=== PATIENT | female | born 1975 | race Caucasian/White ===

== ENCOUNTER 2017-03-22 11:40 | Emergency (ER) | payer MEDICAID ==
[~2017-03-22] VITALS: Ht 165.1 cm; Wt 70.3 kg
[~2017-03-22 11:40] MED LIST: AMOXICILLIN500 MG PO; ATHLETE'S FOOT15 GM TP; BACLOFEN20 MG PO; BACTRIM DS 8001 TAB PO; BLEPH-10 OPT5 ML/BOT OP; CIPRO 500MG TA500 MG PO; CLEOCIN HCL300 MG PO; CLINDAMYCIN HC300 MG PO; DARVOCET-N 1001 EACH PO; ERY-TAB 250MG250 MG OR; ERY-TAB250 MG PO; ERY-TAB333 MG PO; ERYTHROMYCIN 2250 MG PO; ERYTHROMYCIN250 MG PO; ESCITALOPRAM20 MG NG; FIORICET1 CAP PO; FLAGYL 500MG.500 MG PO; FLEXERIL10 MG PO; GABAPENTIN 600600 MG PO; GABAPENTIN300 MG PO; GABAPENTIN800 MG PO; HYDROCODONE1 TABLET PO; IBU-8800 MG PO; IBUPROFEN 600M600 MG PO; IBUPROFEN800 MG PO; INDERAL 40MG. T40 MG PO; INDERAL40 MG PO; KEFLEX 500MG.500 MG PO; LISINOPRIL 10MG10 MG PO; LISINOPRIL/HCTZ1 TA3 PO; LORTAB 5/500 501 TAB PO; MEDROL 4MG. DOSE4 MG PO; MOBIC7.5 MG PO; MOTRIN 400MG.400 MG PO; MOTRIN 600MG.600 MG PO; NAPROSYN 500MG500 MG PO; NAPROXEN SODIU500 MG PO; NEURONTIN 300M300 MG PO; NICOTINE PATCH;21 MG TD; NOMEDS XX; NORFLEX100 MG PO; PHENERGAN 25MG.25 M1 PO; PREDNISONE 20MG20 MG PO; PREMARIN 0.9MG0.9 MG PO; PREMARIN0.9 MG PO; PROPRANOLOL HCL40 MG PO; PYRIDIUM 200MG200 MG PO; PYRIDIUM200 M1 PO; QUETIAPINE FUM100 MG PO; SKELAXIN 800MG800 MG PO; SULFAMETHOXAZOL1 TA6 PO; TOBREX OPTH SOLU5 ML OP; TRAMADOL 50MG T50 M1 PO; TRAMADOL 50MG T50 MG PO; Tramadol HCl50 MG PO; ULTRACET 325 MG1 TAB PO; ULTRAM 50 MG TA50 MG PO; ULTRAM ER100 MG PO; VICODIN 5/500 T1 TAB PO; VOLTAREN75 MG PO; WELLBUTRIN 150150 MG PO; XANAX 1MG TABLET1 MG PO; ZITHROMAX Z PA250 MG PO; ZOFRAN ODT4 MG PO; [UNRECOGNIZED DRUG - OTHER] PO
[2017-03-22] MEDS ORDERED: SUBOXONE 8 MG-21 FIL SL (11:56)
[2017-03-22] MEDS ORDERED: MICONAZOLE45 GM/TUB1 TP (12:11)
--- NOTE | 2017-03-22 12:16 | [facility]gent Treatment [facility] Report ---
History of Present Issue Date/Time Seen by Provider 03/22/17 1157 Visit Reason Pt arrived:Walked Presenting Problem:LT FOOT HAS RED AREAS X 2 WEEKS. USED BLEACH AND ANTI-FUNAL CREAM Location if Accident: Onset of symptoms date/time:/ or onset unknown for:MEDICAL HX UNKNOWN Have you (or family members/close friends) recently traveled outside the [place]? N If Yes, where/when: Have you had exposure to infectious disease within the past month? TB? Other? Specify: Patient states that she has been diagnosed with athletes feet before States that over the last 2 weeks she noticed that her feet was itching more and she was getting the blister like area that ususally come when she has a flare up and states that she noticed them between her toes State that she washed her feet in bleach and used over ther counter Fungal cream but it didn't help so she came in today to be seen ALLERGIES Coded Allergies: Penicillins (10/04/15) Home Medications Reported Medications Escitalopram Oxalate 20 MG NG DAILY #30 BUPRENORPHINE HCL/NALOXONE HCL (Suboxone 8 MG-2 MG Sl Film) 1 SL BID History Medical History General CAD? No Angina: No CO: No Hypertension? Yes Hyperlipidemia? No CHF? No DVT? No PE? No COPD? No Asthma? No Anemia? No GERD? No Gastric ulcers? No GI Bleed? No Hernia? No Thyroid Problems? No Hypothyroidism? No CVA? No Seizures? No Diabetes? No Insulin Dependent: No Insulin Pump: No Home FSBS? No Renal Insuffiency? No UTI? Yes Stones? Yes BPH? No GB Disease: Yes Nephritic Syndrome? No Asplenia? No Hepatitis? No Sickle Cell Disease? No Arthritis? No Migraines? Yes Cataracts? No Glaucoma? No MRSA? No HIV? No TB? No Anxiety? Yes Depression? No Cancer? No Site: N/A More? No Immunization HX DT/Tetanus 1-4 YRS Flu REFUSES Pneumonia REFUSES Surgical Hx Previous Surgery?Y Hysterect [place] Appendix ORAL EXTRACTION RIGHT CARPAL TUNNEL RT OVARY/LEFT OVARY TUBE LEFT CARPAL TUNNEL Family History Family HX Diabetes Yes CAD Yes Hypertension Yes Hyperlipidemia Yes Cancer Yes TB No Social History Smoking Hx Packs/day < 1 Pack Alcohol Alcohol: No Review of Systems All Other Systems Reviewed and Negative Comment blister like itchy areas on left foot Physical Exam Vital Signs Vital Signs Date Time Temp Pulse Resp B/P Pulse O2 O2 Flow FiO2 Ox Delivery Rate 03/22 1151 97.9 91 20 139/97 100 General Appearance normal appearance, WD/WN, no apparent distress Respiratory Status Yes: trachea midline, chest symmetrical, non tender chest. No: respiratory distress. 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 No Departure Departure Time of Disposition 1205 Disposition DC Home or Self Care(routine) Clinical Impression Primary Impression: Tinea pedis of left foot Condition STABLE Referrals Fred LAWSON,[facility] Leger (Family): 3 Days-Call Office Patient Instructions DI for Athlete's Foot Additional Instructions Clean foot well with and dry throughly prior to application of medication cream Do not share shoes Do not go barefoot and clean showers at home well Follow up with family doctor if needed Return if needed You could be on this medication for 2 to 4 weeks and should see improvement after 2 weeks if not follow up with family doctor for further treatement Discharge Counseling Counseled pt/family regarding diagnosis, test results, medications/RX, home care, follow up needs Prescriptions Current Visit Scripts Miconazole Nitrate (Miconazole 2% Cream 45GM) 1 EMMIE TP BID #1 TUBE Ref 1 at 1214
[2017-03-22 12:21] VITALS: BP 139/97
--- OUTSIDE RECORDS SUMMARY | 2017-03-22 21:48 | External Medical Summary Rpt ---
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 BL OF ET CY NT HI AN A ER 24 09 09 0 30 10 EA 24 WE Ac Y- 33 -1 -[address] 06 HR ti TA 80 3- 3- 00 SI 40 MA ve B 12 20 20 DE N EC 41 11 11 II 3 PH I 33 AR WI 3 MA LL MG CY IA M TA OF E BL ET CY NT HI AN A AZ 00 09 09 0 6. 5 EA 24 LE Ac IT 09 -0 -[address] 02 WI ti HR 37 9- 9- 0 SI 74 S ve OM 14 20 20 DE JR YC 61 11 11 IN 8 PH DW AR IG 25 MA HT 0 CY E MG OF TA BL CY ET NT HI AN A OR 16 08 08 0 60 30 EA 23 LE Ac OP 71 -3 -[address] 89 WI ti RA 40 1- 1- 00 SI 98 S ve NO 02 20 20 DE JR LO 50 11 11 L [address] 80 AR IG MA HT MG CY E TA OF BL ET CY NT HI AN A 00 03 08 3 9. 30 EA 21 LE Ac 17 -2 -[address] 78 WI ti 30 1- 0- 0 SI 16 S ve 75 20 20 DE JR 00 11 11 0 [address] AR IG MA HT CY E OF CY NT HI AN A TR 65 08 08 0 12 6 EA 23 SO Ac AM 16 -3 -[address] 89 KA ti AD 20 0- 0- 00 SI 08 N ve OL 62 20 20 DE BA 71 11 11 BA HC 1 PH TU L AR ND 50 MA E CY O MG OF TA BL CY ET NT HI AN A LI 00 08 08 5 30 30 CL 24 LE Ac SI 37 -3 -3 .0 IN 47 WI ti NO 82 0- 0- 00 IC 33 S ve OR 07 20 20 JR IL 30 11 11 PH 5 1 AR DW MA IG MG CY HT E TA LL BL C ET OR 00 02 08 4 60 30 EA 21 REYES Ac EM 04 -2 -[address] 41 RP ti AR 61 5- 1- 00 SI 04 EL ve IN 10 20 20 DE 38 11 11 GE 0. 1 PH RA 9 AR LD MG MA R CY TA BL OF ET CY NT HI AN A GA 16 03 08 5 12 30 EA 21 LE Ac BA 71 -0 -[address] 58 WI ti PE 40 7- 1- 00 SI 95 S ve NT 66 20 20 0 DE JR IN 20 11 [address] 30 AR IG 0 MA HT MG CY E CA OF PS UL CY E NT HI AN A CL 59 07 07 0 60 8 CL 24 WE Ac IN 76 -1 -1 .0 IN 23 HR ti DA 23 9- 9- 00 IC 29 MA ve MY 32 20 20 N CI 80 11 11 PH II N 1 AR I HC MA WI L CY LL 15 IA 0 LL M MG C E CA PS UL E TR 65 07 07 0 5. 2 CL 24 WE Ac AM 16 -1 -1 00 IN 23 HR ti AD 20 9- 9- 0 IC 30 MA ve OL 62 20 20 N 71 11 11 PH II HC 1 AR I L MA WI 50 CY LL IA MG LL M C E TA BL ET TR 00 07 07 15 4 RI 89 GR Ac AM 09 -1 -1 .0 TE 06 AY ti AD 30 1- 1- 00 28 ve OL 05 20 20 AI RO 80 11 11 D BE HC 1 PH RT L AR B 50 MA CY MG 03 TA 93 BL 8 ET # 03 93 00 07 07 40 10 RI 44 HU Ac 07 -0 -0 .0 TE 82 BE ti 46 6- 6- 00 39 R ve 32 20 20 AI JU 61 11 11 D LI 3 PH A AR M MA CY 03 91 4 # 03 91 CE 00 06 06 0 40 10 CL 24 LE Ac PH 09 -2 -2 .0 IN 11 WI ti AL 33 8- 8- 00 IC 40 S ve EX 14 20 20 JR IN 70 11 11 [address] 50 MA IG 0 CY HT MG E LL CA C PS UL E AC 00 06 06 0 20 5 CL 24 LE Ac ET 40 -2 -2 .0 IN 11 WI ti AM 60 8- 8- 00 IC 41 S ve IN 48 20 20 JR OP 40 11 11 PH HE 1 AR DW N- MA IG CO CY HT D E #3 LL C TA BL ET OR 00 02 06 4 60 30 EA 21 REYES Ac EM 04 -2 -[address] 41 RP ti AR 61 5- 9- 00 SI 04 EL ve IN 10 20 20 DE 38 11 11 GE 0. 1 PH RA 9 AR LD MG MA R CY TA BL OF ET CY NT HI AN A TR 65 06 06 1 50 12 EA 22 LE Ac AM 16 -0 -[address] 86 WI ti AD 20 8- 9- 00 SI 49 S ve OL 62 20 20 DE JR 71 11 11 HC 1 PH DW L AR IG 50 MA HT CY E MG OF TA BL CY ET NT HI AN A TR 65 06 06 0 20 3 CL 24 GR Ac AM 16 -1 -1 .0 IN 03 AY ti AD 20 4- 4- 00 IC 28 ve OL 62 20 20 RO 71 11 11 PH BE HC 1 AR RT L MA B 50 CY MG LL C TA BL ET TR 65 05 05 1 50 12 EA 22 LE Ac AM 16 -1 -[address] 57 WI ti AD 20 8- 9- 00 SI 46 S ve OL 62 20 20 DE JR 71 11 11 HC 1 PH DW L AR IG 50 MA HT CY E MG OF TA BL CY ET NT HI AN A DI 00 05 05 0 25 4 EA 22 LE Ac PH 37 -1 -[address] 57 WI ti EN 80 8- 8- 00 SI 44 S ve OX 41 20 20 DE JR YL 50 11 11 AT [address] E- AR IG AT MA HT RO CY E P 2. OF 5- 0. CY 02 NT 5 HI AN A OR 00 05 05 0 20 5 EA 22 LE Ac OM 78 -1 -[address] 57 WI ti ET 11 8- 8- 00 SI 45 S ve REYES 83 20 20 DE JR ZI 01 11 11 NE [address] AR IG 25 MA HT CY E MG OF TA BL CY ET NT HI AN A TR 65 05 05 1 50 12 EA 22 LE Ac AM 16 -1 -[address] 57 WI ti AD 20 8- 8- 00 SI 46 S ve OL 62 20 20 DE JR 71 11 11 HC 1 PH DW L AR IG 50 MA HT CY E MG OF TA BL CY ET NT HI AN A GA 16 03 05 5 12 30 EA 21 LE Ac BA 71 -0 -[address] 58 WI ti PE 40 7- 7- 00 SI 95 S ve NT 66 20 20 0 DE JR IN 20 11 11 [address] 30 AR IG 0 MA HT MG CY E CA OF PS UL CY E NT HI AN A TR 65 04 05 1 50 12 EA 22 LE Ac AM 16 -2 -[address] 26 WI ti AD 20 5- 7- 00 SI 00 S ve OL 62 20 20 DE JR 71 11 11 HC 1 PH DW L AR IG 50 MA HT CY E MG OF TA BL CY ET NT HI AN A CL 63 05 05 40 10 RI 88 MC Ac IN 30 -0 -0 .0 TE 20 CA ti DA 40 5- 5- 00 84 UL ve MY 69 20 20 AI EY CI 31 11 11 D -T N 6 PH HO HC AR RN L MA BE 30 CY RR 0 Y MG 03 AM 93 AN CA 8 DA PS # UL 03 E 93 00 05 05 10 2 RI 44 PE Ac 60 -0 -0 .0 TE 11 RE ti 33 4- 4- 00 15 Z, ve 88 20 20 AI 12 11 11 D JR 8 PH ., AR MA DO CY OS 03 CA 91 R 4 O # 03 91 OR 00 02 05 4 60 30 EA 21 REYES Ac EM 04 -2 -[address] 41 RP ti AR 61 5- 2- 00 SI 04 EL ve IN 10 20 20 DE 38 11 11 GE 0. 1 PH RA 9 AR LD MG MA R CY TA BL OF ET CY NT HI AN A ME 00 04 04 0 21 6 EA 22 LE Ac TH 78 -2 -[address] 25 WI ti YL 15 5- 5- 00 SI 97 S ve OR 02 20 20 DE JR ED 20 11 11 NI 7 PH DW SO AR IG LO MA HT NE CY E 4 OF MG CY DO NT SE HI PK AN A NA 68 04 04 1 30 15 EA 22 LE Ac OR 46 -2 -[address] 25 WI ti OX 20 5- 5- 00 SI 98 S ve EN 17 20 20 DE JR 90 11 11 SO 1 [address] DI AR IG UM MA HT CY E 55 0 OF MG CY TA NT B HI AN A OR 00 04 04 0 15 4 EA 22 LE Ac OM 78 -2 -[address] 25 WI ti ET 11 5- 5- 00 SI 99 S ve REYES 83 20 20 DE JR ZI 01 11 11 NE 0 [address] AR IG 25 MA HT CY E MG OF TA BL CY ET NT HI AN A TR 65 04 04 1 50 12 EA 22 LE Ac AM 16 -2 -[address] 26 WI ti AD 20 5- 5- 00 SI 00 S ve OL 62 20 20 DE JR 71 11 11 HC 1 PH DW L AR IG 50 MA HT CY E MG OF TA BL CY ET NT HI AN A 00 04 04 0 30 7 EA 22 LE Ac 59 -2 -[address] 20 WI ti 10 0- 0- 00 SI 44 S ve 34 20 20 DE JR 90 11 11 [address] AR IG MA HT CY E OF CY NT HI AN A TR 65 04 04 1 50 12 EA 21 LE Ac AM 16 -0 -[address] 94 WI ti AD 20 1- 3- 00 SI 29 S ve OL 62 20 20 DE JR 71 11 11 HC 1 PH DW L AR IG 50 MA HT CY E MG OF TA BL CY ET NT HI AN A 00 04 04 0 10 2 EA 22 MC Ac 59 -0 -[address] 02 CA ti 10 7- 7- 00 SI 28 UL ve 34 20 20 DE EY 90 11 11 1 PH TH AR OR MA NB CY ER RY OF AM CY AN NT DA HI AN A 00 04 04 0 10 2 EA 22 MC Ac 59 -0 -[address] 02 CA ti 10 7- 7- 00 SI 28 UL ve 34 20 20 DE EY 90 11 11 -T 1 PH HO AR RN MA BE CY RR Y OF AM AN CY DA NT HI AN A GA 16 03 04 5 12 30 EA 21 LE Ac BA 71 -0 -[address] 58 WI ti PE 40 7- 6- 00 SI 95 S ve NT 66 20 20 0 DE JR IN 20 11 11 [address] 30 AR IG 0 MA HT MG CY E CA OF PS UL CY E NT HI AN A TR 65 04 04 1 50 12 EA 21 LE Ac AM 16 -0 -[address] 94 WI ti AD 20 1- 1- 00 SI 29 S ve OL 62 20 20 DE JR 71 11 11 HC 1 PH DW L AR IG 50 MA HT CY E MG OF TA BL CY ET NT HI AN A AZ 00 04 04 0 6. 5 EA 21 LE Ac IT 09 -0 -[address] 94 WI ti HR 37 1- 1- 0 SI 30 S ve OM 14 20 20 DE JR YC 61 11 11 IN 8 PH DW AR IG 25 MA HT 0 CY E MG OF TA BL CY ET NT HI AN A OR 00 02 03 4 60 30 EA 21 REYES Ac EM 04 -2 -[address] 41 RP ti AR 61 5- 0- 00 SI 04 EL ve IN 10 20 20 DE 38 11 11 GE 0. 1 PH RA 9 AR LD MG MA R CY TA BL OF ET CY NT HI AN A 00 03 03 24 3 RI 87 ER Ac 60 -2 -2 .0 TE 70 EN ti 33 9- 9- 00 43 A ve 88 20 20 AI GR 12 11 11 D EG 8 PH OR AR Y MA R CY 03 93 8 # 03 93 00 03 03 24 3 RI 87 ER Ac 60 -2 -2 .0 TE 70 EN ti 33 9- 9- 00 43 A ve 88 20 20 AI GR 12 11 11 D EG 8 PH OR AR Y MA R CY 03 93 8 # 03 93 IB 53 03 03 30 7 RI 87 ER Ac UP 74 -2 -2 .0 TE 70 EN ti RO 60 9- 9- 00 44 A ve FE 46 20 20 AI GR N 50 11 11 D EG 60 5 PH OR 0 AR Y MG MA R CY TA BL 03 ET 93 8 # 03 93 00 03 03 0 4. 1 EA 21 MC Ac 59 -2 -[address] 88 CA ti 10 8- 8- 0 SI 39 UL ve 38 20 20 DE EY 50 11 11 1 PH TH AR OR MA NB CY ER RY OF AM CY AN NT DA HI AN A 00 03 03 0 4. 1 EA 21 MC Ac 59 -2 -[address] 88 CA ti 10 8- 8- 0 SI 39 UL ve 38 20 20 DE EY 50 11 11 -T 1 PH HO AR RN MA BE CY RR Y OF AM AN CY DA NT HI AN A 00 03 03 0 12 2 WA 44 MC Ac 40 -2 -2 .0 L- 92 CA ti 60 5- 5- 00 MA 62 UL ve 35 20 20 RT 9 EY 80 11 11 1 PH TH AR OR MA NB CY ER # RY 10 AM 05 AN 91 DA 00 03 03 0 12 2 WA 44 MC Ac 40 -2 -2 .0 L- 92 CA ti 60 5- 5- 00 MA 62 UL ve 35 20 20 RT 9 EY 80 11 11 -T 1 PH HO AR RN MA BE CY RR # Y AM 10 AN 05 DA 91 TR 65 03 03 0 20 5 EA 21 VA Ac AM 16 -2 -[address] 80 SC ti AD 20 2- 2- 00 SI 76 EL ve OL 62 20 20 DE LO 71 11 11 HC 1 PH TYLER L AR IS 50 MA A CY MG OF TA BL CY ET NT HI AN A 00 03 03 3 9. 30 EA 21 LE Ac 17 -2 -[address] 78 WI ti 30 1- 1- 0 SI 16 S ve 75 20 20 DE JR 00 11 11 [address] AR IG MA HT CY E OF CY NT HI AN A HALL 53 03 03 0 28 14 EA 21 SO Ac LF 74 -2 -[address] 76 KA ti AM 60 0- 0- 00 SI 98 N ve ET 27 20 20 DE BA HO 20 11 11 BA XA 5 PH TU ZO AR ND LE MA E -T CY O MP OF DS CY TA NT BL HI ET AN A 00 03 03 0 10 2 EA 21 SO Ac 59 -2 -[address] 76 KA ti 10 0- 0- 00 SI 99 N ve 34 20 20 DE BA 90 11 11 BA 1 PH TU AR ND MA E CY O OF CY NT HI AN A 00 03 03 0 16 3 EA 21 MC Ac 59 -1 -[address] 73 IL ti 10 7- 7- 00 SI 14 VA ve 38 20 20 DE IN 50 11 11 1 PH JA AR SO MA N CY J OF CY NT HI AN A 00 03 03 0 16 3 EA 21 MC Ac 59 -1 -[address] 73 IL ti 10 7- 7- 00 SI 14 VA ve 38 20 20 DE IN 50 11 11 1 PH JA AR SO MA N CY OF CY NT HI AN A TR 65 03 03 0 50 12 EA 21 LE Ac AM 16 -0 -[address] 58 WI ti AD 20 7- 7- 00 SI 94 S ve OL 62 20 20 DE JR 71 11 11 HC 1 PH DW L AR IG 50 MA HT CY E MG OF TA BL CY ET NT HI AN A GA 16 08 03 5 90 30 EA 18 LE Ac BA 71 -1 -[address] 70 WI ti PE 40 3- 6- 00 SI 42 S ve NT 66 20 20 DE JR IN 20 10 [address] 30 AR IG 0 MA HT MG CY E CA OF PS UL CY E NT HI AN A OR 00 02 02 0 15 5 EA 21 LE Ac OM 78 -2 -[address] 44 WI ti ET 11 8- 8- 00 SI 19 S ve REYES 83 20 20 DE JR ZI 01 11 11 NE [address] AR IG 25 MA HT CY E MG OF TA BL CY ET NT HI AN A 00 02 02 0 30 5 EA 21 LE Ac 59 -2 -[address] 44 WI ti 10 8- 8- 00 SI 21 S ve 34 20 20 DE JR 90 11 11 [address] AR IG MA HT CY E OF CY NT HI AN A OR 00 02 02 4 60 30 EA 21 REYES Ac EM 04 -2 -[address] 41 RP ti AR 61 5- 5- 00 SI 04 EL ve IN 10 20 20 DE 38 11 11 GE 0. 1 PH RA 9 AR LD MG MA R CY TA BL OF ET CY NT HI AN A 00 08 02 5 9. 30 EA 18 LE Ac 17 -1 -[address] 74 WI ti 30 7- 6- 0 SI 59 S ve 75 20 20 DE JR 00 10 11 [address] AR IG MA HT CY E OF CY NT HI AN A GA 16 08 02 5 90 30 EA 18 LE Ac BA 71 -1 -[address] 70 WI ti PE 40 3- 2- 00 SI 42 S ve NT 66 20 20 DE JR IN 20 10 [address] 30 AR IG 0 MA HT MG CY E CA OF PS UL CY E NT HI AN A 00 01 01 0 12 3 EA 21 SO Ac 59 -3 -[address] 01 KA ti 10 1- 1- 00 SI 95 N ve 34 20 20 DE BA 90 11 11 BA 1 PH TU AR ND MA E CY O OF CY NT HI AN A OR 00 08 01 1 30 30 EA 18 REYES Ac EM 04 -0 -[address] 61 RP ti AR 61 6- 1- 00 SI 26 EL ve IN 10 20 20 DE 49 10 11 GE 1. 1 PH RA 25 AR LD MA R MG CY TA OF BL ET CY NT HI AN A 00 08 01 5 9. 30 EA 18 LE Ac 17 -1 -[address] 74 WI ti 30 7- 5- 0 SI 59 S ve 75 20 20 DE JR 00 10 11 [address] AR IG MA HT CY E OF CY NT HI AN A GA 16 08 01 5 90 30 EA 18 LE Ac BA 71 -1 -[address] 70 WI ti PE 40 3- 5- 00 SI 42 S ve NT 66 20 20 DE JR IN 20 10 11 [address] 30 AR IG 0 MA HT MG CY E CA OF PS UL CY E NT HI AN A OR 00 08 12 1 30 30 EA 18 REYES Ac EM 04 -0 -[address] 61 RP ti AR 61 6- 3- 00 SI 26 EL ve IN 10 20 20 DE 49 10 10 GE 1. 1 PH RA 25 AR LD MA R MG CY TA OF BL ET CY NT HI AN A GA 00 08 12 5 90 30 EA 18 LE Ac BA 22 -1 -[address] 70 WI ti PE 82 3- 7- 00 SI 42 S ve NT 66 20 20 DE JR IN 65 10 [address] 30 AR IG 0 MA HT MG CY E CA OF PS UL CY E NT HI AN A 00 08 12 5 9. 30 EA 18 LE Ac 17 -1 -[address] 74 WI ti 30 7- 7- 0 SI 59 S ve 75 20 20 DE JR 00 10 10 [address] AR IG MA HT CY E OF CY NT HI AN A OR 00 08 11 1 30 30 EA 18 REYES Ac EM 04 -0 -[address] 61 RP ti AR 61 6- 8- 00 SI 26 EL ve IN 10 20 20 DE 49 10 10 GE 1. 1 PH RA 25 AR LD MA R MG CY TA OF BL ET CY NT HI AN A 00 08 10 5 9. 30 EA 18 LE Ac 17 -1 -[address] 74 WI ti 30 7- 5- 0 SI 59 S ve 75 20 20 DE JR 00 10 10 [address] AR IG MA HT CY E OF CY NT HI AN A CL 63 10 10 0 48 6 WA 70 WA Ac IN 30 -2 -2 .0 L- 90 RR ti DA 40 0- 0- 00 MA 92 IN ve MY 69 20 20 RT 6 G CI 20 10 10 RO N 1 PH BE HC AR RT L MA T 15 CY 0 # MG 10 CA 05 PS 91 UL E OR 00 08 10 1 30 30 EA 18 REYES Ac EM 04 -0 -[address] 61 RP ti AR 61 6- 8- 00 SI 26 EL ve IN 10 20 20 DE 49 10 10 GE 1. 1 PH RA 25 AR LD MA R MG CY TA OF BL ET CY NT HI AN A TR 65 10 10 0 60 15 EA 19 LE Ac AM 16 -1 -[address] 54 WI ti AD 20 5- 5- 00 SI 53 S ve OL 62 20 20 DE JR 71 10 10 HC 1 PH DW L AR IG 50 MA HT CY E MG OF TA BL CY ET NT HI AN A TR 65 09 09 0 60 15 EA 19 LE Ac AM 16 -3 -[address] 34 WI ti AD 20 0- 0- 00 SI 40 S ve OL 62 20 20 DE JR 71 10 10 HC 1 PH DW L AR IG 50 MA HT CY E MG OF TA BL CY ET NT HI AN A 00 08 09 5 9. 30 EA 18 LE Ac 17 -1 -[address] 74 WI ti 30 7- 4- 0 SI 59 S ve 75 20 20 DE JR 00 10 10 0 PH DW AR IG MA HT CY E OF CY NT HI AN A OR 00 08 09 1 30 30 EA 18 REYES Ac EM 04 -0 -[address] 61 RP ti AR 61 6- 4- 00 SI 26 EL ve IN 10 20 20 DE 49 10 10 GE 1. 1 PH RA 25 AR LD MA R MG CY TA OF BL ET CY NT HI AN A TR 65 09 09 0 60 15 EA 19 LE Ac AM 16 -1 -[address] 13 WI ti AD 20 4- 4- 00 SI 18 S ve OL 62 20 20 DE JR 71 10 10 HC 1 PH DW L AR IG 50 MA HT CY E MG OF TA BL CY ET NT HI AN A 66 09 09 12 6 RI 84 EN Ac 99 -1 -1 0. TE 92 GL ti 20 0- 0- 00 57 AN ve 22 20 20 0 AI D 00 10 10 D SH 4 PH AR AR I MA L CY 03 93 8 # 03 93 CL 00 09 09 20 10 RI 84 EN Ac AR 09 -0 -0 .0 TE 91 GL ti IT 37 9- 9- 00 94 AN ve HR 15 20 20 AI D OM 80 10 10 D SH YC 6 PH AR IN AR I MA L 50 CY 0 MG 03 93 TA 8 BL # ET 03 93 LO 45 08 08 5 30 30 EA 18 LE Ac RA 80 -3 -[address] 91 WI ti TA 20 0- 0- 00 SI 81 S ve DI 65 20 20 DE JR NE 08 10 10 7 PH DW 10 AR IG MA HT MG CY E TA OF BL ET CY NT HI AN A TR 65 08 08 0 60 15 EA 18 LE Ac AM 16 -3 -[address] 91 WI ti AD 20 0- 0- 00 SI 82 S ve OL 62 20 20 DE JR 71 10 10 HC 1 PH DW L AR IG 50 MA HT CY E MG OF TA BL CY ET NT HI AN A ME 00 08 08 0 21 6 EA 18 LE Ac TH 78 -3 -[address] 91 WI ti YL 15 0- 0- 00 SI 83 S ve OR 02 20 20 DE JR ED 20 10 10 NI 7 PH DW SO AR IG LO MA HT NE CY E 4 OF MG CY DO NT SE HI PK AN A TR 65 08 08 0 60 8 EA 18 LE Ac AM 16 -2 -[address] 80 WI ti AD 20 2- 2- 00 SI 95 S ve OL 62 20 20 DE JR 71 10 10 HC 1 PH DW L AR IG 50 MA HT CY E MG OF TA BL CY ET NT HI AN A 00 08 08 5 9. 30 EA 18 LE Ac 17 -1 -[address] 74 WI ti 30 7- 7- 0 SI 59 S ve 75 20 20 DE JR 00 10 10 0 PH DW AR IG MA HT CY E OF CY NT HI AN A TR 65 08 08 0 60 8 EA 18 LE Ac AM 16 -1 -[address] 71 WI ti AD 20 4- 4- 00 SI 22 S ve OL 62 20 20 DE JR 71 10 10 HC 1 PH DW L AR IG 50 MA HT CY E MG OF TA BL CY ET NT HI AN A GA 00 08 08 5 90 30 EA 18 LE Ac BA 22 -1 -[address] 70 WI ti PE 82 3- 3- 00 SI 42 S ve NT 66 20 20 DE JR IN 65 10 10 [address] 30 AR IG 0 MA HT MG CY E CA OF PS UL CY E NT HI AN A OR 00 08 08 1 30 30 EA 18 REYES Ac EM 04 -0 -[address] 61 RP ti AR 61 6- 6- 00 SI 26 EL ve IN 10 20 20 DE 49 10 10 GE 1. 1 PH RA 25 AR LD MA R MG CY TA OF BL ET CY NT HI AN A TR 65 08 08 0 60 8 EA 18 LE Ac AM 16 -0 -[address] 61 WI ti AD 20 6- 6- 00 SI 27 S ve OL 62 20 20 DE JR 71 10 10 HC 1 PH DW L AR IG 50 MA HT CY E MG OF TA BL CY ET NT HI AN A OR 16 08 08 5 60 30 EA 18 LE Ac OP 71 -0 -[address] 61 WI ti RA 40 6- 6- 00 SI 28 S ve NO 02 20 20 DE JR LO 40 10 10 L [address] 60 AR IG MA HT MG CY E TA OF BL ET CY NT HI AN A TR 65 07 07 0 60 8 EA 18 LE Ac AM 16 -2 -[address] 51 WI ti AD 20 8- 9- 00 SI 00 S ve OL 62 20 20 DE JR 71 10 10 HC 1 PH DW L AR IG 50 MA HT CY E MG OF TA BL CY ET NT HI AN A TR 65 07 07 0 60 8 EA 18 LE Ac AM 16 -2 -[address] 42 WI ti AD 20 1- 1- 00 SI 13 S ve OL 62 20 20 DE JR 71 10 10 HC 1 PH DW L AR IG 50 MA HT CY E MG OF TA BL CY ET NT HI AN A 00 07 07 0 30 5 EA 18 NI Ac 07 -2 -[address] 41 CH ti 46 0- 0- 00 SI 36 OL ve 30 20 20 DE S 41 10 10 SHIMA 3 PH E AR A MA CY OF CY NT HI AN A 60 07 07 0 12 3 EA 18 NI Ac 25 -2 -[address] 41 CH ti 80 0- 0- 00 SI 44 OL ve 23 20 20 0 DE S 91 10 10 SHIMA 6 PH E AR A MA CY OF CY NT HI AN A OR 00 05 07 2 30 30 EA 17 REYES Ac EM 04 -0 -[address] 51 RP ti AR 61 7- 2- 00 SI 37 EL ve IN 10 20 20 DE 49 10 10 GE 1. 1 PH RA 25 AR LD MA R MG CY TA OF BL ET CY NT HI AN A OR 00 07 07 0 25 6 EA 18 LE Ac OM 78 -0 -[address] 22 WI ti ET 11 6- 6- 00 SI 94 S ve REYES 83 20 20 DE JR ZI 01 10 10 NE 0 PH DW AR IG 25 MA HT CY E MG OF TA BL CY ET NT HI AN A DI 00 07 07 0 30 5 EA 18 LE Ac PH 37 -0 -[address] 22 WI ti EN 80 6- 6- 00 SI 95 S ve OX 41 20 20 DE JR YL 50 10 10 AT 1 [address] E- AR IG AT MA HT RO CY E P 2. OF 5- 0. CY 02 NT 5 HI AN A TR 65 07 07 1 60 9 EA 18 LE Ac AM 16 -0 -[address] 22 WI ti AD 20 6- 6- 00 SI 96 S ve OL 62 20 20 DE JR 71 10 10 HC 1 PH DW L AR IG 50 MA HT CY E MG OF TA BL CY ET NT HI AN A 00 07 07 0 30 5 EA 18 NI Ac 07 -0 -[address] 20 CH ti 46 2- 2- 00 SI 31 OL ve 30 20 20 DE S 41 10 10 SHIMA 3 PH E AR A MA CY OF CY NT HI AN A TU 61 07 07 0 18 5 EA 18 NI Ac SS 57 -0 -[address] 20 CH ti IG 00 2- 2- 00 SI 32 OL ve ON 08 20 20 DE S 10 10 10 SHIMA 5- 1 PH E 1. AR A 5 MA MG CY TA OF BL ET CY NT HI AN A TR 65 06 06 1 60 8 EA 18 LE Ac AM 16 -2 -[address] 06 WI ti AD 20 1- 8- 00 SI 26 S ve OL 62 20 20 DE JR 71 10 10 HC 1 PH DW L AR IG 50 MA HT CY E MG OF TA BL CY ET NT HI AN A OR 16 02 06 5 60 30 EA 16 LE Ac OP 71 -1 -[address] 44 WI ti RA 40 9- 1- 00 SI 15 S ve NO 02 20 20 DE JR LO 30 10 10 L [address] 40 AR IG MA HT MG CY E TA OF BL ET CY NT HI AN A NA 53 06 06 1 60 30 EA 18 LE Ac OR 74 -2 -[address] 06 WI ti OX 60 1- 1- 00 SI 25 S ve EN 19 20 20 DE JR 40 10 10 SO 1 PH DW DI AR IG UM MA HT CY E 55 0 OF MG CY TA NT B HI AN A TR 65 06 06 1 60 8 EA 18 LE Ac AM 16 -2 -[address] 06 WI ti AD 20 1- 1- SI 26 S ve OL 62 20 20 DE JR 71 10 10 HC 1 PH DW L AR IG 50 MA HT CY E MG OF TA BL CY ET NT HI AN A 00 06 06 0 21 7 73 VE Ac 78 -1 -1 .0 51 RA ti 12 5- 5- 00 41 X ve 11 20 20 II 30 10 10 I 1 WI LL IA M J 00 06 06 0 [address] Ac 09 -1 -[address] 97 EP ti 30 4- 4- 00 SI 48 HE ve 89 20 20 DE NS 00 10 10 5 PH DO AR N MA R CY OF CY NT HI AN A IN 00 06 06 0 24 12 EA 17 NI Ac DO 78 -1 -[address] 95 CH ti ME 12 2- 2- 00 SI 76 OL ve TH 35 20 20 DE S AC 00 10 10 SHIMA IN 5 PH E AR A 50 MA CY MG OF CA PS CY UL NT E HI AN A TR 65 06 06 0 15 4 EA 17 WE Ac AM 16 -1 -[address] 96 HR ti AD 20 2- 2- 00 SI 05 MA ve OL 62 20 20 DE N 71 10 10 II HC 1 PH I L AR WI 50 MA LL CY IA MG M OF E TA BL CY ET NT HI AN A OR 00 05 06 2 30 30 EA 17 REYES Ac EM 04 -0 -[address] 51 RP ti AR 61 7- 0- 00 SI 37 EL ve IN 10 20 20 DE 49 10 10 GE 1. 1 PH RA 25 AR LD MA R MG CY TA OF BL ET CY NT HI AN A TR 65 05 06 1 60 7 EA 17 LE Ac AM 16 -2 -[address] 73 WI ti AD 20 6- 2- 00 SI 87 S ve OL 62 20 20 DE JR 71 10 10 HC 1 PH DW L AR IG 50 MA HT CY E MG OF TA BL CY ET NT HI AN A TR 65 05 05 1 60 7 EA 17 LE Ac AM 16 -2 -[address] 73 WI ti AD 20 6- 6- 00 SI 87 S ve OL 62 20 20 DE JR 71 10 10 HC 1 PH DW L AR IG 50 MA HT CY E MG OF TA BL CY ET NT HI AN A OR 00 05 05 0 90 3 EA 17 NI Ac OM 60 -1 -[address] 61 CH ti ET 31 6- 6- 00 SI 63 OL ve REYES 58 20 20 DE S ZI 55 10 10 SHIMA NE 8 PH E -C AR A OD MA EI CY NE OF SY RU CY P NT HI AN A CY 00 05 05 1 30 10 EA 17 LE Ac CL 59 -1 -[address] 57 WI ti OB 13 2- 2- 00 SI 67 S ve EN 25 20 20 DE JR ZA 60 10 10 OR 1 PH [address] IN AR IG E MA HT 5 CY E MG OF TA BL CY ET NT HI AN A TR 65 04 05 1 50 12 EA 17 RI Ac AM 16 -2 -[address] 33 SH ti AD 20 6- 7- 00 SI 72 ER ve OL 62 20 20 DE 71 10 10 RI HC 1 PH CH L AR AR 50 MA D CY MG OF TA BL CY ET NT HI AN A OR 00 05 05 2 30 30 EA 17 REYES Ac EM 04 -0 -[address] 51 RP ti AR 61 7- 7- 00 SI 37 EL ve IN 10 20 20 DE 49 10 10 GE 1. 1 PH RA 25 AR LD MA R MG CY TA OF BL ET CY NT HI AN A IB 53 05 05 0 12 30 EA 17 LE Ac UP 74 -0 -[address] 42 WI ti RO 60 1- - 00 SI 83 S ve FE 46 20 20 0 DE JR N 50 10 10 [address] 0 AR IG MG MA HT CY E TA BL OF ET CY NT HI AN A ME 00 05 05 0 21 6 EA 17 LE Ac TH 78 -0 -[address] 42 WI ti YL 15 SI 82 S ve OR 02 20 20 DE JR ED 20 10 10 NI 7 PH [address] SO AR IG LO MA HT NE CY E 4 OF MG CY DO NT SE HI PK AN A TR 65 04 04 1 50 12 EA 17 RI Ac AM 16 -2 -[address] 33 SH ti AD 20 6- 6- 00 SI 72 ER ve OL 62 20 20 DE 71 10 10 RI HC 1 PH CH L AR AR 50 MA D CY MG OF TA BL CY ET NT HI AN A TR 65 04 04 0 12 3 EA 17 RI Ac AM 16 -1 -[address] 21 SH ti AD 20 6- 6- 00 SI 91 ER ve OL 62 20 20 DE 71 10 10 RI HC 1 PH CH L AR AR 50 MA D CY MG OF TA BL CY ET NT HI AN A 00 04 04 0 30 5 EA 17 NI Ac 07 -1 -[address] 18 CH ti 46 4- 4- 00 SI 52 OL ve 30 20 20 DE S 41 10 10 SHIMA 3 PH E AR A MA CY OF CY NT HI AN A TU 61 04 04 0 24 6 EA 17 NI Ac SS 57 -1 -[address] 18 CH ti IG 00 4- 4- 00 SI 53 OL ve ON 08 20 20 DE S 10 10 10 SHIMA 5- 1 PH E 1. AR A 5 MA MG CY TA OF BL ET CY NT HI AN A GA 00 02 04 5 90 30 EA 16 LE Ac BA 22 -1 -[address] 43 WI ti PE 82 9- 3- 00 SI 18 S ve NT 66 20 20 DE JR IN 65 [address] 30 AR IG 0 MA HT MG CY E CA OF PS UL CY E NT HI AN A OR 00 03 04 0 30 30 EA 16 REYES Ac EM 04 -1 -[address] 79 RP ti AR 61 6- 2- 00 SI 86 EL ve IN 10 20 20 DE 28 10 10 GE 0. 1 PH RA 62 AR LD 5 MA R MG CY TA OF BL ET CY NT HI AN A TR 00 04 04 10 5 RI 82 MU Ac AM 09 -1 -1 .0 TE 95 LB ti AD 30 2- 2- 00 49 ER ve OL 05 20 20 AI RY 80 10 10 D HC 1 PH BR L AR IA 50 MA N CY T MG 03 TA 93 BL 8 ET # 03 93 00 03 03 0 20 3 EA 16 RI Ac 59 -2 -[address] 93 SH ti 10 5- 5- 00 SI 71 ER ve 34 20 20 DE 90 10 10 RI 1 PH CH AR AR MA D CY OF CY NT HI AN A TR 65 02 03 2 50 12 EA 16 LE Ac AM 16 -1 -[address] 43 WI ti AD 20 9- 8- 00 SI 17 S ve OL 62 20 20 DE JR 71 10 10 HC 1 PH DW L AR IG 50 MA HT CY E MG OF TA BL CY ET NT HI AN A 00 03 03 0 10 5 EA 16 REYES Ac 90 -1 -[address] 84 RP ti 42 8- 8- 00 SI 52 EL ve 72 20 20 DE 54 10 10 GE 0 PH RA AR LD MA R CY OF CY NT HI AN A OR 00 03 03 0 30 30 EA 16 REYES Ac EM 04 -1 -[address] 79 RP ti AR 61 6- 6- 00 SI 86 EL ve IN 10 20 20 DE 28 10 10 GE 0. 1 PH RA 62 AR LD 5 MA R MG CY TA OF BL ET CY NT HI AN A SE 00 04 03 2 30 30 EA 12 CO Ac RO 31 -2 -[address] 43 OP ti QU 00 1- 3- 00 SI 32 ER ve EL 27 20 20 DE 11 09 10 SHIMA 10 0 PH HN 0 AR G MG MA CY TA BL OF ET CY NT HI AN A NE 24 03 03 0 10 5 EA 16 LE Ac OM 20 -1 -[address] 75 WI ti YC 80 2- 2- 00 SI 25 S ve IN 63 20 20 DE JR -P 56 10 10 OL 2 PH DW YM AR IG YX MA HT IN CY E -H C OF EA R CY HALL NT SP HI AN A TR 65 02 03 2 50 12 EA 16 LE Ac AM 16 -1 -[address] 43 WI ti AD 20 9- 7- 00 SI 17 S ve OL 62 20 20 DE JR 71 10 10 HC 1 PH DW L AR IG 50 MA HT CY E MG OF TA BL CY ET NT HI AN A 00 03 03 0 30 4 EA 16 LE Ac 05 -0 -[address] 62 WI ti 44 4- 4- 00 SI 32 S ve 65 20 20 DE JR 02 10 [address] AR IG MA HT CY E OF CY NT HI AN A TR 00 02 03 0 12 3 CL 21 GA Ac AM 37 -2 -0 .0 IN 14 IN ti AD 84 5- 1- 00 IC 28 EY ve OL 15 20 20 10 10 10 PH RI HC 5 AR CH L MA AE 50 CY L S MG LL C TA BL ET AZ 00 02 02 00 6. 6 EA 16 LE Ac IT 09 -1 -[address] 43 WI ti HR 37 9- 6- 0 SI 19 S ve OM 14 20 20 DE JR YC 61 10 10 IN 8 PH DW AR IG 25 MA HT 0 CY E MG OF TA CY BL NT ET HI AN A GA 00 02 02 00 90 30 EA 16 LE Ac BA 22 -1 -[address] 43 WI ti PE 82 9- 6- 00 SI 18 S ve NT 66 20 20 DE JR IN 65 10 [address] 30 AR IG 0 MA HT MG CY E CA OF PS CY UL NT E HI AN A TR 65 01 02 03 50 12 EA 15 LE Ac AM 16 -0 -[address] 81 WI ti AD 20 4- 6- 00 SI 44 S ve OL 62 20 20 DE JR 71 10 10 HC 1 PH DW L AR IG 50 MA HT CY E MG OF TA CY BL NT ET HI AN A OR 16 02 02 00 60 30 EA 16 LE Ac OP 71 -1 -[address] 44 WI ti RA 40 9- 6- 00 SI 15 S ve NO 02 20 20 DE JR LO 30 10 10 L [address] 40 AR IG MA HT MG CY E TA OF BL CY ET NT HI AN A TR 65 01 02 02 50 12 EA 15 LE Ac AM 16 -0 -[address] 81 WI ti AD 20 4- 1- 00 SI 44 S ve OL 62 20 20 DE JR 71 10 10 HC 1 PH DW L AR IG 50 MA HT CY E MG OF TA CY BL NT ET HI AN A IB 53 01 02 00 15 5 CL 20 SO Ac UP 74 -2 -1 .0 IN 94 KA ti RO 60 5- 1- 00 IC 99 N ve FE 46 20 20 BA N 60 10 10 PH BA 80 5 AR TU 0 MA ND MG CY E O TA BL ET 00 01 02 00 12 3 EA 16 CL Ac 40 -2 -[address] 10 AR ti 62 5- 1- 00 SI 28 KE ve 04 20 20 DE 11 10 10 DE 0 PH RE AR K MA J CY OF CY NT HI AN A 00 02 02 00 30 5 EA 16 REYES Ac 59 -0 -[address] 18 RP ti 10 1- 1- 00 SI 89 EL ve 34 20 20 DE 90 10 10 GE 1 PH RA AR LD MA R CY OF CY NT HI AN A 00 01 02 00 10 3 CL 20 SO Ac 40 -2 -1 .0 IN 94 KA ti 60 5- 1- 00 IC 98 N ve 35 20 20 BA 70 10 10 PH BA 5 AR TU MA ND CY E O 00 01 01 00 50 13 EA 15 LE Ac 59 -1 -[address] 90 WI ti 10 1- 8- 00 SI 91 S ve 34 20 20 DE JR 90 10 10 [address] AR IG MA HT CY E OF CY NT HI AN A NI 00 01 01 00 20 10 EA 16 REYES Ac TR 18 -2 -[address] 07 RP ti OF 50 2- 8- 00 SI 76 EL ve UR 12 20 20 DE AN 20 10 10 GE TO 1 PH RA IN AR LD MA R MO CY NO -M OF CR CY NT 10 HI 0 AN MG A ME 00 01 01 00 5. 5 EA [address] 55 -2 -[address] 07 RP ti OX 50 2- 8- 0 SI 74 EL ve YP 77 20 20 DE RO 90 10 10 GE GE [address] AR LD ER MA R ON CY E 10 OF CY MG NT HI TA AN B A ME 00 01 01 00 21 6 EA 15 LE Ac TH 78 -1 -[address] 90 WI ti YL 15 1- 8- 00 SI 92 S ve OR 02 20 20 DE JR ED 20 10 10 NI 7 PH DW SO AR IG LO MA HT NE CY E 4 OF MG CY NT DO HI SE AN PK A TR 65 01 01 01 50 12 EA 15 LE Ac AM 16 -0 -[address] 81 WI ti AD 20 4- 8- 00 SI 44 S ve OL 62 20 20 DE JR 71 10 10 HC 1 PH DW L AR IG 50 MA HT CY E MG OF TA CY BL NT ET HI AN A TR 65 01 01 00 50 12 EA 15 LE Ac AM 16 -0 -[address] 81 WI ti AD 20 4- 4- 00 SI 44 S ve OL 62 20 20 DE JR 71 10 10 HC 1 PH DW L AR IG 50 MA HT CY E MG OF TA CY BL NT ET HI AN A TR 00 12 12 00 50 12 RI 81 LE Ac AM 09 -1 -3 .0 TE 33 WI ti AD 30 5- 1- 00 08 S ve OL 05 20 20 AI JR 80 09 09 D HC 1 PH DW L AR IG 50 M HT #3 E MG 93 8 TA BL ET 60 12 12 00 12 3 EA 15 NI Ac 25 -0 -[address] 43 CH ti 80 4- 7- 00 SI 15 OL ve 23 20 20 0 DE S 91 09 09 SHIMA 6 PH E AR A MA CY OF CY NT HI AN A AC 00 12 12 00 30 4 CL 20 LE Ac ET 40 -0 -1 .0 IN 58 WI ti AM 60 2- 7- 00 IC 94 S ve IN 48 20 20 JR OP 40 09 09 PH HE 1 AR DW N- MA IG CO CY HT D E #3 TA BL ET SE 00 04 12 00 30 30 EA 12 CO Ac RO 31 -2 -[address] 43 OP ti QU 00 1- 7- 00 SI 32 ER ve EL 27 20 20 DE 11 09 09 SHIMA 10 0 PH HN 0 AR G MG MA CY TA BL OF ET CY NT HI AN A CE 00 12 12 00 30 10 CL 20 LE Ac PH 09 -0 -1 .0 IN 58 WI ti AL 33 2- 7- 00 IC 93 S ve EX 14 20 20 JR IN 70 09 09 PH [address] 50 MA IG 0 CY HT MG E CA PS UL E TR 00 11 12 03 50 12 WA 44 LE Ac AM 37 -0 -1 .0 L- 81 WI ti AD 84 6- 7- 00 MA 06 S ve OL 15 20 20 RT 1 JR 10 09 09 HC 1 PH DW L AR IG 50 MA HT CY E MG #5 TA 91 BL ET 00 11 12 00 28 7 TO 71 VE Ac 78 -2 -0 .0 TA 82 RA ti 12 4- 3- 00 L 30 X ve 11 20 20 CA II 20 09 09 RE I 1 WI PH LL AR IA MA M CY J #5 TR 00 11 12 02 50 12 WA 44 LE Ac AM 37 -0 -0 .0 L- 81 WI ti AD 84 6- 3- 00 MA 06 S ve OL 15 20 20 RT 1 JR 10 09 09 HC 1 PH DW L AR IG 50 MA HT CY E MG #5 TA 91 BL ET 00 11 12 00 12 3 TO 71 VE Ac 59 -2 -0 .0 TA 82 RA ti 10 4- 3- 00 L 31 X ve 38 20 20 CA II 50 09 09 RE I 5 WI PH LL AR IA MA M CY J #5 GA 00 11 11 00 90 30 EA 15 LE Ac BA 22 -1 -[address] 07 WI ti PE 82 1- 9- 00 SI 98 S ve NT 66 20 20 DE JR IN 65 09 [address] 30 AR IG 0 MA HT MG CY E CA OF PS CY UL NT E HI AN A TR 00 11 11 00 50 12 WA 44 LE Ac AM 37 -0 -1 .0 L- 81 WI ti AD 84 6- 9- 00 MA 06 S ve OL 15 20 20 RT 1 JR 10 09 09 HC 1 PH DW L AR IG 50 MA HT CY E MG #5 TA 91 BL ET 00 11 11 00 24 6 WA 70 WA Ac 07 -0 -1 .0 L- 44 RR ti 46 5- 9- 00 MA 39 IN ve 30 20 20 RT 1 G 11 09 09 RO 3 PH BE AR RT MA CY #5 91 00 11 11 00 9. 3 EA 14 No Ac 59 -0 -[address] 99 t ti 10 4- 9- 0 SI 30 Av ve 38 20 20 DE ai 50 09 09 la 1 PH bl AR e MA CY OF CY NT HI AN A AZ 00 11 11 00 6. 6 EA 15 LE Ac IT 09 -1 -[address] 07 WI ti HR 37 1- 9- 0 SI 99 S ve OM 14 20 20 DE JR YC 61 09 09 IN 8 PH DW AR IG 25 MA HT 0 CY E MG OF TA CY BL NT ET HI AN A CH 00 11 11 00 11 3 CL 20 LE Ac ER 60 -1 -1 8. IN 46 WI ti AT 31 3- 9- 00 IC 88 S ve US 07 20 20 0 JR SI 55 09 09 PH N 4 AR DW AC MA IG CY HT SY E RU P 00 10 11 00 24 6 WA 70 WA Ac 07 -1 -0 .0 L- 41 RR ti 46 9- 5- 00 MA 83 IN ve 32 20 20 RT 6 G 11 09 09 RO 3 PH BE AR RT MA CY #5 91 TO 68 10 11 00 31 17 TO 71 NO Ac PI 46 -2 -0 .0 TA 58 RF ti RA 20 9- 5- 00 L 50 LE ve MA 10 20 20 CA ET TE 81 09 09 RE R 0 25 PH HE AR NR MG MA Y CY TA BL #5 ET AC 00 10 11 00 14 2 WA 44 WA Ac ET 09 -2 -0 .0 L- 80 RR ti AM 30 7- 5- 00 MA 79 IN ve IN 15 20 20 RT 9 G OP 01 09 09 RO HE 0 PH BE N- AR RT CO MA D CY #3 #5 TA 91 BL ET 60 10 11 00 12 3 EA 14 NI Ac 25 -1 -[address] 75 CH ti 80 9- 5- 00 SI 59 OL ve 23 20 20 0 DE S 91 09 09 SHIMA 6 PH E AR A MA CY OF CY NT HI AN A TR 00 10 11 00 28 8 RI 80 FO Ac AM 09 -2 -[address] ti AD 30 5- 5- 00 34 ER ve OL 05 20 20 AI 80 09 09 D JA HC 1 PH ME L AR S 50 M M #3 MG 93 8 TA BL ET 00 10 11 00 30 5 EA 14 NI Ac 07 -1 -[address] 75 CH ti 46 9- 5- 00 SI 55 OL ve 30 20 20 DE S 41 09 09 SHIMA 3 PH E AR A MA CY OF CY NT HI AN A Vital Signs 10-09-2013 18:58 Name Value Interpretat Reference Comment ion Range Body 97.8 [degF] Temperature BP 84 mm[Hg] Diastolic BP Systolic 128 mm[Hg] Heart 91 /min Rate/Pulse O2% 97 % Respiratory 20 /min Rate 10-09-2013 18:16 Name Value Interpretat Reference Comment ion Range BP 103 mm[Hg] Diastolic BP Systolic 148 mm[Hg] Heart 72 /min Rate/Pulse O2% 100 % Respiratory 20 /min Rate 07-03-2013 18:22 Name Value Interpretat Reference Comment ion Range Body 98.0 [degF] Temperature BP 88 mm[Hg] Diastolic BP Systolic 134 mm[Hg] Heart 75 /min Rate/Pulse O2% 98 % Respiratory 20 /min Rate 07-03-2013 15:58 Name Value Interpretat Reference Comment ion Range BP 123 mm[Hg] Diastolic BP Systolic 166 mm[Hg] Heart 77 /min Rate/Pulse O2% 99 % Respiratory 20 /min Rate 05-07-2013 18:26 Name Value Interpretat Reference Comment ion Range Body 98.5 [degF] Temperature BP 94 mm[Hg] Diastolic BP Systolic 153 mm[Hg] Heart 65 /min Rate/Pulse O2% 100 % Respiratory 16 /min Rate 05-07-2013 18:25 Name Value Interpretat Reference Comment ion Range Body 98.5 [degF] Temperature 05-07-2013 16:50 Name Value Interpretat Reference Comment ion Range BP 99 mm[Hg] Diastolic BP Systolic 144 mm[Hg] Heart 96 /min Rate/Pulse O2% 99 % Respiratory 18 /min Rate 04-11-2013 19:20 Name Value Interpretat Reference Comment ion Range Body 98.7 [degF] Temperature BP 89 mm[Hg] Diastolic BP Systolic 129 mm[Hg] Heart 99 /min Rate/Pulse O2% 100 % Respiratory 18 /min Rate 04-11-2013 18:56 Name Value Interpretat Reference Comment ion Range BP 89 mm[Hg] Diastolic BP Systolic 129 mm[Hg] Heart 99 /min Rate/Pulse O2% 100 % Respiratory 18 /min Rate 03-08-2013 17:26 Name Value Interpretat Reference Comment ion Range Body 98.7 [degF] Temperature BP 89 mm[Hg] Diastolic BP Systolic 125 mm[Hg] Heart 91 /min Rate/Pulse O2% 100 % Respiratory 20 /min Rate 03-08-2013 16:53 Name Value Interpretat Reference Comment ion Range BP 107 mm[Hg] Diastolic BP Systolic 141 mm[Hg] Heart 107 /min Rate/Pulse O2% 99 % Respiratory 20 /min Rate 11-20-2012 21:52 Name Value Interpretat Reference Comment ion Range Body 98.4 [degF] Temperature BP 104 mm[Hg] Diastolic BP Systolic 152 mm[Hg] Heart 102 /min Rate/Pulse O2% 100 % Respiratory 20 /min Rate 11-20-2012 21:51 Name Value Interpretat Reference Comment ion Range Body 98.4 [degF] Temperature BP 104 mm[Hg] Diastolic BP Systolic 152 mm[Hg] Heart 102 /min Rate/Pulse O2% 100 % Respiratory 20 /min Rate Results Labs Lab Lab Date Result Refere Interp Status Commen Order Detail nces retati t Range on TROPONIN I (07-03-2013 17:28) TROPONI 11-18-2 Less 0.00-0. complet N I 013 than 06 ed 17:28 0.02 ng/mL B-HCG Ur Ql (07-03-2013 16:02) B-HCG 11-18-2 NEGATIV NEG complet Ur Ql 013 E ed 16:02 COMPREHENSIVE METABOLIC PANEL (07-03-2013 15:20) Glucose 18-2 90 74-106 complet 013 mg/dL ed Bld-mCn 15:20 c BUN 18-2 16 7-18 complet Bld-mCn 013 mg/dL ed c 15:20 Creat -18-2 0.9 0.6-1.0 complet SerPl-m 013 mg/dL ed Cnc 15:20 ESTIMAT -18-2 98 50-200 complet ED 013 ML/MIN ed CREATIN 15:20 INE CLEARAN CE GFR 18-2 70 59- complet (ESTIMA 013 ML/MIN ed BJ) 15:20 Sodium 18-2 143 136-145 complet SerPl-s 013 mmoL/L ed Cnc 15:20 Potassi -18-2 3.7 3.5-5.1 complet um 013 mmoL/L ed SerPl-s 15:20 Cnc Chlorid 18-2 105 98-107 complet e 013 mmoL/L ed SerPl-s 15:20 Cnc CO2 -18-2 28 21.0-32 complet SerPl-s 013 mmoL/L .0 ed Cnc 15:20 Calcium 11-18-2 8.9 8.5-10. complet 013 mg/dL 1 ed SerPl-m 15:20 Cnc Prot 11-18-2 7.7 6.4-8.2 complet SerPl-m 013 gm/dL ed Cnc 15:20 Albumin 11-18-2 4.2 3.4-5.0 complet 013 gm/dL ed SerPl-m 15:20 Cnc Globuli 11-18-2 3.5 1.3-3.2 complet n 013 gm/dL ed Ser-mCn 15:20 c Albumin 11-18-2 1.2 UNK 1.1-1.8 complet /Glob 013 ed SerPl-m 15:20 Rto Bilirub 11-18-2 0.1 0.2-1.0 complet 013 mg/dL ed SerPl-m 15:20 Cnc AST 11-18-2 40 U/L 15-37 complet SerPl-c 013 ed Cnc 15:20 ALT 11-18-2 101 U/L 30-65 complet SerPl-c 013 ed Cnc 15:20 ALP 11-18-2 123 U/L 50-136 complet SerPl-c 013 ed Cnc 15:20 CBC with AUTO DIFF (07-03-2013 15:20) WBC # 11-18-2 8.8 4.8-10. complet Bld 013 K/MM3 8 ed Auto 15:20 RBC # 11-18-2 4.48 4.2-5.4 complet Bld 013 M/mm3 ed Auto 15:20 Hgb 11-18-2 13.2 12.2-16 complet Bld-mCn 013 g/dL .2 ed c 15:20 Hct Fr 11-18-2 39.6 % 37.0-47 complet Bld 013 .0 ed 15:20 MCV RBC 11-18-2 88.4 fl 82.2-97 complet 013 .8 ed 15:20 MCH RBC 11-18-2 29.4 pg 27-31.2 complet Qn 013 ed Auto 15:20 MEAN 11-18-2 33.3 31.8-35 complet CORPUSC 013 g/dl .4 ed ULAR 15:20 HGB CONC RDW RBC 11-18-2 14.3 % 11.5-17 complet Auto 013 .5 ed 15:20 Platele 11-18-2 256 142-424 complet t Bld 013 K/mm3 ed Ql 15:20 Manual MEAN 11-18-2 8.1 fl 7.4-10. complet PLATELE 013 4 ed T 15:20 VOLUME Granulo 11-18-2 59.4 % 37.0-80 complet cytes 013 .0 ed Fr Bld 15:20 Auto LYMPH % 11-18-2 33.5 % 10-50.0 complet 013 ed 15:20 Monocyt 11-18-2 5.5 % 1.7-9.3 complet es Fr 013 ed Bld 15:20 Auto Eosinop 11-18-2 0.9 % 0.1-12. complet hil Fr 013 0 ed Bld 15:20 Auto Basophi 11-18-2 0.7 % 0.1-2.0 complet ls Fr 013 ed Bld 15:20 Auto Granulo 11-18-2 5.3 1.8-7.8 complet cytes # 013 K/mm3 ed Bld 15:20 Auto Lymphoc 11-18-2 3.0 0.7-4.5 complet ytes Fr 013 K/mm3 ed Bld 15:20 Auto Monocyt 11-18-2 0.5 0.1-1.0 complet es # 013 K/mm3 ed Bld 15:20 Auto Eosinop 11-18-2 0.1 0.0-0.4 complet hil # 013 K/mm3 ed Bld 15:20 Auto Basophi 11-18-2 0.1 0-0.2 complet ls # 013 K/MM3 ed Bld 15:20 Auto COMPREHENSIVE METABOLIC PANEL (05-07-2013 16:30) Glucose 171 74-106 complet 013 mg/dL ed Bld-mCn 16:30 c BUN 15 7-18 complet Bld-mCn 013 mg/dL ed c 16:30 Creat 1.1 0.6-1.0 complet SerPl-m 013 mg/dL ed Cnc 16:30 ESTIMAT 78 50-200 complet ED 013 ML/MIN ed CREATIN 16:30 INE CLEARAN CE GFR 56 59- complet (ESTIMA 013 ML/MIN ed BJ) 16:30 Sodium 142 136-145 complet SerPl-s 013 mmoL/L ed Cnc 16:30 Potassi 3.7 3.5-5.1 complet um 013 mmoL/L ed SerPl-s 16:30 Cnc Chlorid 105 98-107 complet e 013 mmoL/L ed SerPl-s 16:30 Cnc CO2 29 21.0-32 complet SerPl-s 013 mmoL/L .0 ed Cnc 16:30 Calcium 8.8 8.5-10. complet 013 mg/dL 1 ed SerPl-m 16:30 Cnc Prot 05-07-2 7.6 6.4-8.2 complet SerPl-m 013 gm/dL ed Cnc 16:30 Albumin 05-07-2 4.2 3.4-5.0 complet 013 gm/dL ed SerPl-m 16:30 Cnc Globuli 05-07-2 3.4 1.3-3.2 complet n 013 gm/dL ed Ser-mCn 16:30 c Albumin 05-07-2 1.2 UNK 1.1-1.8 complet /Glob 013 ed SerPl-m 16:30 Rto Bilirub 05-07-2 0.1 0.2-1.0 complet 013 mg/dL ed SerPl-m 16:30 Cnc AST 05-07-2 14 U/L 15-37 complet SerPl-c 013 ed Cnc 16:30 ALT 05-07-2 35 U/L 30-65 complet SerPl-c 013 ed Cnc 16:30 ALP 05-07-2 99 U/L 50-136 complet SerPl-c 013 ed Cnc 16:30 CBC with AUTO DIFF (05-07-2013 16:30) WBC # 05-07-2 8.6 4.8-10. complet Bld 013 K/MM3 8 ed Auto 16:30 RBC # 05-07-2 4.32 4.2-5.4 complet Bld 013 M/mm3 ed Auto 16:30 Hgb 05-07-2 13.0 12.2-16 complet Bld-mCn 013 g/dL .2 ed c 16:30 Hct Fr 05-07-2 39.1 % 37.0-47 complet Bld 013 .0 ed 16:30 MCV RBC 05-07-2 90.5 fl 82.2-97 complet 013 .8 ed 16:30 MCH RBC 05-07-2 30.1 pg 27-31.2 complet Qn 013 ed Auto 16:30 MEAN 05-07-2 33.2 31.8-35 complet CORPUSC 013 g/dl .4 ed ULAR 16:30 HGB CONC RDW RBC 05-07-2 14.3 % 11.5-17 complet Auto 013 .5 ed 16:30 Platele 05-07-2 262 142-424 complet t Bld 013 K/mm3 ed Ql 16:30 Manual MEAN 09-22-2 8.6 fl 7.4-10. complet PLATELE 013 4 ed T 16:30 VOLUME Granulo 09-22-2 54.6 % 37.0-80 complet cytes 013 .0 ed Fr Bld 16:30 Auto LYMPH % 09-22-2 39.3 % 10-50.0 complet 013 ed 16:30 Monocyt 09-22-2 4.2 % 1.7-9.3 complet es Fr 013 ed Bld 16:30 Auto Eosinop 09-22-2 1.3 % 0.1-12. complet hil Fr 013 0 ed Bld 16:30 Auto Basophi 09-22-2 0.8 % 0.1-2.0 complet ls Fr 013 ed Bld 16:30 Auto Granulo 09-22-2 4.7 1.8-7.8 complet cytes # 013 K/mm3 ed Bld 16:30 Auto Lymphoc 09-22-2 3.4 0.7-4.5 complet ytes Fr 013 K/mm3 ed Bld 16:30 Auto Monocyt 09-22-2 0.4 0.1-1.0 complet es # 013 K/mm3 ed Bld 16:30 Auto Eosinop 09-22-2 0.1 0.0-0.4 complet hil # 013 K/mm3 ed Bld 16:30 Auto Basophi 09-22-2 0.1 0-0.2 complet ls # 013 K/MM3 ed Bld 16:30 Auto URINALYSIS/COMPLETE (05-07-2013 16:24) URINE -22-2 YELLOW YELLOW complet COLOR 013 ed 16:24 URINE -22-2 Sl CLEAR complet APPEARA 013 Cloudy ed NCE 16:24 URINE -22-2 NEGATIV NEG complet GLUCOSE 013 E ed - 16:24 DIPSTIC K URINE 09-22-2 NEGATIV NEG complet BILIRUB 013 E ed IN - 16:24 DIPSTIC K URINE 09-22-2 NEGATIV NEG complet KETONE 013 E mg/dL ed 16:24 URINE 09-22-2 Greater 1.005-1 complet SPECIFI 013 than .030 ed C 16:24 or GRAVITY equal to 1.030 URINE 09-22-2 3+ NEG complet BLOOD 013 ed 16:24 URINE 09-22-2 6.0 UNK 5.0-8.5 complet PH 013 ed 16:24 URINE 05-07-2 NEGATIV NEG complet PROTEIN 013 E mg/dL ed - 16:24 DIPSTIC K URINE 05-07-2 0.2 NEG complet UROBILI 013 E.U./dL ed NOGEN - 16:24 DIPSTIC K URINE 05-07-2 NEGATIV NEG complet NITRATE 013 E ed - 16:24 DIPSTIC K URINE 05-07-2 NEGATIV NEG complet LEUK 013 E ed ESTERAS 16:24 E URINE 05-07-2 20-50 0 complet RBC 013 rbc/hpf ed 16:24 URINE 05-07-2 3-5 O complet WBC 013 wbc/hpf ed 16:24 URINE 05-07-2 10-20 0-5 complet SQUAMOU 013 #/hpf ed S CELLS 16:24 URINE 05-07-2 1+ OCC complet MUCUS 013 ed 16:24 URINE 05-07-2 OCC NONE complet YEAST 013 ed 16:24 URINALYSIS/COMPLETE (03-08-2013 16:15) URINE 24-2 YELLOW YELLOW complet COLOR 013 ed 16:15 URINE 24-2 CLEAR CLEAR complet APPEARA 013 ed NCE 16:15 URINE 24-2 NEGATIV NEG complet GLUCOSE 013 E ed - 16:15 DIPSTIC K URINE 24-2 NEGATIV NEG complet BILIRUB 013 E ed IN - 16:15 DIPSTIC K URINE 24-2 NEGATIV NEG complet KETONE 013 E mg/dL ed 16:15 URINE 24-2 1.020 1.005-1 complet SPECIFI 013 UNK .030 ed C 16:15 GRAVITY URINE 24-2 2+ NEG complet BLOOD 013 ed 16:15 URINE 24-2 6.0 UNK 5.0-8.5 complet PH 013 ed 16:15 URINE 24-2 NEGATIV NEG complet PROTEIN 013 E mg/dL ed - 16:15 DIPSTIC K URINE 24-2 0.2 NEG complet UROBILI 013 E.U./dL ed NOGEN - 16:15 DIPSTIC K URINE 24-2 NEGATIV NEG complet NITRATE 013 E ed - 16:15 DIPSTIC K URINE 24-2 1+ NEG complet LEUK 013 ed ESTERAS 16:15 E URINE 10-20 0 complet RBC 013 rbc/hpf ed 16:15 URINE 03-08- 3-5 O complet WBC 013 wbc/hpf ed 16:15 URINE 10-20 0-5 complet SQUAMOU 013 #/hpf ed S CELLS 16:15 URINE 1+ O complet BACTERI 013 ed A 16:15 STREP SCREEN (RAPID) (11-20-2012 21:03) STREP NEGATIV complet SCREEN 013 E ed (RAPID) 21:03 Procedures Procedure DOS Code Location Performer Comment RADIOLOGI 31350 [facility] C EXAM 7 [facility] CHEST 2 INC INC VIEWS FRONTAL&L ATERAL THER 22103 LIZ H[facility] PROPH/DX 7 [facility] NJX IV INC INC PUSH SINGLE/1S T SBST/DRUG THERAPEUT 77803 [facility] IC 7 [facility] INJECTION INC INC IV PUSH EACH NEW DRUG COMPREHEN 83143 LI[facility] SIVE 7 [facility] METABOLIC INC INC PANEL DRUG TEST 30996 [facility] PRSMV 7 [facility] QUAL DIR INC INC OPTICAL OBS PER DAY CREATINE 12697 LIZ IHLL KINASE MB 7 [facility] FRACTION INC INC ONLY CREATINE 37600 [facility] KINASE 7 [facility] TOTAL INC INC URNLS DIP 49238 LI[facility] 7 [facility] STICK/TAB INC INC LET REAGENT AUTO MICROSCOP Y ECG 61456 BEL IBARRA ROUTINE 7 PHYSICIAN ECG S, PLLC W/LEAST 12 LDS I&[place] [address] [facility] TROPONIN 7 [facility] QUANTITAT INC INC RADHIKA BLOOD 78253 [facility] COUNT 7 [facility] COMPLETE INC INC AUTO&AUTO DIFRNTL WBC CULTURE 01646 [facility] BACTERIAL 7 [facility] INC INC QUANTTATI VE COLONY COUNT URINE ECG 54705 [facility] ROUTINE 7 [facility] ECG INC INC W/LEAST 12 LDS TRCG ONLY W/O I&R FIBRIN 00391 LIZ LIZ DGRADJ 7 [facility] PRODUCTS INC INC D-DIMER QUAL/SEMI ALIN ECG 10912 [facility] ROUTINE 7 [facility] ECG INC INC W/LEAST 12 LDS TRCG ONLY W/O I&R BLOOD 34586 LIZ LIZ COUNT 7 [facility] COMPLETE INC INC AUTO&AUTO DIFRNTL WBC RHYTHM 00331 LIZ LIZ ECG 1-3 7 [facility] LEADS INC INC TRACING ONLY W/O I&[place] [address] LIZ LIZ TROPONIN 7 [facility] QUANTITAT INC INC RADHIKA ECG 22082 LIZ QUINTERO ROUTINE 7 [facility] W/LEAST P 12 LDS I&R ONLY COMPREHEN 47112 LIZ LIZ SIVE 7 [facility] METABOLIC INC INC PANEL RADIOLOGI 14341 LIZ H[facility] C 7 [facility] EXAMINATI INC INC ON CHEST SINGLE VIEW FRONTAL THER 91533 LIZ HILL PROPH/DX 7 [facility] NJX IV INC INC PUSH SINGLE/1S T SBST/DRUG DRUG TEST 03889 [place] H[place] PRSMV 7 [facility] QUAL DIR INC INC OPTICAL OBS PER DAY RADIOLOGI 30198 [place] ALL C 6 MEDICAL EXAMINATI IMAGING ON FOOT 2 ASS VIEWS THERAPEUT 06107 [facility] IC 6 PHYSICIAN EUG PROPHYLAC S GROUP TIC/DX INJECTION SUBQ/IM INJECTION J1100 [facility] 6 PHYSICIAN EUG DEXAMETHO S GROUP SONE SODIUM PHOSPHATE 1 MG INJECTION J1885 [facility] 6 PHYSICIAN EUG KETOROLAC S GROUP TROMETHAM INE PER 15 MG THERAPEUT 42633 [facility] IC 6 PHYSICIAN ABHAY PROPHYLAC S GROUP TIC/DX INJECTION SUBQ/IM INJECTION J1040 [facility] 6 PHYSICIAN ABHAY METHYLPRE S GROUP DNISOLONE ACETATE 80 MG INJECTION J0696 [facility] 6 PHYSICIAN ABHAY CEFTRIAXO S GROUP NE SODIUM PER 250 MG INJECTION J0696 [facility] 6 PHYSICIAN ABHAY CEFTRIAXO S GROUP NE SODIUM PER 250 MG INJECTION J1040 [facility] 6 PHYSICIAN ABHAY METHYLPRE S GROUP DNISOLONE ACETATE 80 MG THERAPEUT 50450 [facility] IC 6 PHYSICIAN ABHAY PROPHYLAC S GROUP TIC/DX INJECTION SUBQ/[place] [address] [place] FARRE[place] ALL TRACT UPR 6 MEDICAL W/SM INT IMAGING W/MULT ASS SERIAL IMAGES THERAPEUT 69865 [facility] IC 6 PHYSICIAN ABHAY PROPHYLAC S GROUP TIC/DX INJECTION SUBQ/IM INJECTION J1040 [facility] 6 PHYSICIAN ABHAY METHYLPRE S GROUP DNISOLONE ACETATE 80 MG INJECTION J0696 [facility] 6 PHYSICIAN ABHAY CEFTRIAXO S GROUP [place] [address] [place] [address] [place] MELANIE ABDOMEN & 5 MEDICAL LIZZETTE PELVIS IMAGING W/O ASS CONTRAST MATERIAL CULTURE 01416 [facility] BACTERIAL 5 [facility] INC INC QUANTTATI VE COLONY COUNT URINE IADNA 16405 [facility] NEISSERIA 5 MARIUM GRANDA GONORRHOE AE DIRECT PROBE TQ CULTURE 26732 [facility] CHLAMYDIA 5 MARIUM LAWSON KALEE ANY SOURCE URINLS 67529 [facility] DIP 5 MARIUM LAWSON KALEE STICK/TAB LET REAGNT NON-AUTO MICRSCPY INJECTION J0696 [facility] 5 PHYSICIAN ABHAY CEFTRIAXO S GROUP NE SODIUM PER 250 MG THERAPEUT 60101 [facility] IC 5 PHYSICIAN ABHAY PROPHYLAC S GROUP TIC/DX INJECTION SUBQ/IM THERAPEUT 89127 [facility] IC 5 PHYSICIAN ABHAY PROPHYLAC S GROUP TIC/DX INJECTION SUBQ/IM INJECTION J0696 [facility] 5 PHYSICIAN ABHAY CEFTRIAXO S GROUP NE SODIUM PER 250 MG INJECTION J1040 [facility] 5 PHYSICIAN AHBAY METHYLPRE S GROUP DNISOLONE ACETATE 80 MG RADIOLOGI 14612 [place] BEINE C EXAM 5 MEDICAL NORMA CHEST 2 IMAGING VIEWS ASS FRONTAL&L ATERAL INJECTION 37530 [facility] 1 [place] 5 PHYSICIAN JAM S GROUP SHEATH/LI GAMENT APONEUROS IS INJ [id number] [facility] BETAMETHA 5 PHYSICIAN JAM SONE S GROUP ACETATE & PHOSPHATE 3 MG RADEX 46813 [facility] SPINE 5 MEDICAL [place] THORACIC IMAGING 3 VIEWS ASS THERAPEUT 92262 [facility] SUD[facility] IC 5 PHYSICIAN ABHAY PROPHYLAC S GROUP TIC/DX INJECTION SUBQ/IM INJECTION [id number] [facility] SUD[facility] 5 PHYSICIAN ABHAY KETOROLAC S GROUP TROMETHAM INE PER 15 MG INJECTION J2550 [facility] 5 PHYSICIAN ABHAY PROMETHAZ S GROUP INE HCL UP TO 50 MG RADIOLOGI 22694 [facility] EXAM 5 [facility] KNEE INC INC COMPLETE 4/MORE VIEWS THERAPEUT 01706 [facility] IC 5 [facility] INJECTION INC INC IV PUSH EACH NEW DRUG INJ J0702 [facility] BETAMETHA 5 PHYSICIAN JAM SONE S GROUP ACETATE & PHOSPHATE 3 MG INJECTION 91959 [facility] 1 [place] 5 PHYSICIAN PHYSICIAN S GROUP S GROUP SHEATH/LI GAMENT APONEUROS IS IAADIADOO 42182 Janett JONES 4 [place] JEJanett INFLUENZA PSC INJ J0702 A Symone JONES BETAMETHA 4 [place] FAROOQ SONE PSC ACETATE & PHOSPHATE 3 MG INJECTION J1885 Janett JONES 4 [place] FAROOQ KETOROLAC PSC TROMETHAM INE PER 15 MG THERAPEUT 70875 Janett JONES IC 4 [place] FAROOQ PROPHYLAC PSC TIC/DX INJECTION SUBQ/IM THER 37403 [facility] PROPH/DX 3 [facility] NJX IV INC INC PUSH SINGLE/1S T SBST/DRUG THERAPEUT 06543 [facility] IC 3 [facility] INJECTION INC INC IV PUSH EACH NEW DRUG URNLS DIP 13537 [facility] STICK/TAB INC INC LET REAGENT AUTO MICROSCOP Y BLOOD 89333 [facility] COUNT 3 [facility] COMPLETE INC INC AUTO&AUTO DIFRNTL WBC COMPREHEN 85541 [facility] SIVE 3 [facility] [place] [address] MELANIE MELANIE ABDOMEN & 3 LIZZETTE LIZZETTE PELVIS W/O CONTRAST MATERIAL RADEX 33033 [facility] SHOULDER 3 [facility] COMPLETE INC INC MINIMUM 2 [place] [address] [facility] STREPTOCO 3 [facility] CCUS INC INC GROUP A CUL BACT 67617 [facility] XCPT 3 [facility] URINE INC INC BLOOD/STO OL AEROBIC ISOL THERAPEUT 51666 [facility] IC 3 [facility] PROPHYLAC INC INC TIC/DX INJECTION SUBQ/IM RADIOLOGI 06287 [place]ELANIE C 2 MEDICAL LIZZETTE EXAMINATI IMAGING ON CHEST ASS SINGLE VIEW FRONTAL ECG 72961 LIANA GAINES ROUTINE 2 III DERRICK III DERRICK ECG W/LEAST 12 LDS I&R ONLY RADEX 19702 [place] MELANIE SHOULDER 2 MEDICAL [facility] COMPLETE IMAGING MINIMUM 2 ASS VIEWS RADIOLOGI 77159 [place]ELANIE C EXAM 2 [facility] CHEST 2 IMAGING VIEWS ASS FRONTAL&L ATERAL RADIOLOGI 08022 [place] MELANIE C 2 MEDICAL LIZZETTE EXAMINATI IMAGING ON KNEE 3 ASS VIEWS BLOOD 65343 [facility] COUNT 2 [facility] COMPLETE INC INC AUTO&AUTO DIFRNTL WBC BASIC 97055 [facility] METABOLIC 2 [facility] [place] [address] [facility] INFUSION 2 [facility] THERAPY INC INC PROPHYLAX IS/DX EA HOUR THERAPEUT 74553 [facility] IC 2 [facility] INJECTION INC INC IV PUSH EACH NEW DRUG NEUROPLAS 09591 [facility] TY 2 [facility] &/TRANSPO INC INC S MEDIAN NRV CARPAL TUNNE ANES 31810 [facility] DERRICK NERVE 2 ANESTH MUSCLE OF THE TDN BLUE FASCIA&[place] [address] [facility] INFUSION 2 [facility] THERAPY/P INC INC ROPHYLAXI S /DX 1ST TO 1 HR ANES 35170 [facility] BRYCE NERVE 2 ANESTH MUSCLE OF THE TDN BLUE FASCIA&BU RSA FOREARM WRIST NEUROPLAS 94542 PETTEMliy BROWNTEMily TY 2 JAM JAM &/TRANSP[place] [address] [facility]FUSION 2 [facility] THERAPY/P INC INC ROPHYLAXI S /DX 1ST TO 1 HR THERAPEUT 95882 [facility] IC 2 [facility] INJECTION INC INC [place] [address] [facility] INFUSION 2 [facility] THERAPY INC INC PROPHYLAX IS/DX EA HOUR BASIC 12241 [facility] METABOLIC 2 [facility] PANEL INC INC CALCIUM TOTAL BLOOD 40789 [facility] COUNT 2 [facility] COMPLETE INC INC AUTO&AUTO DIFRNTL WBC ORTHOPANT 90684 ELFEGO TELLES OGRAM 1 KEYUR KEYUR RADIOLOGI 04414 [place] MELANIE C 1 MEDICAL [place] EXAMINATI IMAGING ON KNEE 3 ASS VIEWS RADEX 27305 [place] MEL[place]IE SHOULDER 1 MEDICAL [place] COMPLETE IMAGING MINIMUM 2 ASS VIEWS RADEX 65166 [facility] SHOULDER 1 [facility] COMPLETE INC INC MINIMUM 2 VIEWS SLINGS A4565 MALINI L.P. MALINI L.P. 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 ASPIRATE IES IES INTERP & REPORT URNLS DIP 63018 [facility] 1 [facility] STICK/TAB INC INC LET REAGENT AUTO MICROSCOP Y INITIAL 92474 DAVID GAINES TX 1ST 1 EMERGENCY III DERRICK DEGREE SERVICES BURN LOCAL TX URNLS DIP 53005 LIZ JADE JR 1 [facility] STICK/CITIZENS BAPTIST LET RGNT P NON-AUTO W/O MICRSCP RADIOLOGI 17446 [facility] XIONGMELANIE C 1 MEDICAL [place] EXAMINATI IMAGING ON [place] [address] [place] [address] [facility] ABDOMEN & 1 [facility] PELVIS INC INC W/O CONTRAST MATERIAL URNLS DIP 25533 [facility] 1 [facility] STICK/TAB INC INC LET REAGENT AUTO MICROSCOP Y 3D 56544 [facility] RENDERING 1 [facility] INC INC W/INTERP& POSTPROC DIFF WORK STATION URINLS 58237 A C [place] A DIP 1 [place] STICK/TAB PSC LET REAGNT NON-AUTO MICRSCPY RADEX 24948 [place] MELANIE SPINE 1 MEDICAL [place] LUMBOSACR IMAGING AL ASS MINIMUM 4 VIEWS RADIOLOGI 54826 [place] MELANIE C 1 MEDICAL [place] EXAMINATI IMAGING ON PELVIS ASS 1/2 VIEWS RADEX 35114 [facility] SACRUM & 1 RADIOLOGY LD A COCCYX MINIMUM 2 VIEWS BONE 70393 [facility] LENGTH 1 RADIOLOGY LD A STUDIES OPHTH 25984 [facility] VISION ANG XM&EVAL COMPRHNSV ESTAB PT 1/> URNLS DIP 00004 [facility] 1 [facility] STICK/TAB INC INC LET REAGENT AUTO MICROSCOP Y US BREAST 97205 [facility] NAVARRO REAL 1 MEDICAL [place] TIME IMAGING W/IMAGE ASS DOCUMENTA TION DIAGNOSTI G0204 [facility] XIONGMELANIE C 1 MEDICAL [place] MAMMOGRAP IMAGING HY INCL ASS CAD WHEN PERF; BILAT SKIN TEST 06968 [facility] 1 [facility] SIS INTRADERM AL RADEX 28898 [facility] SPINE 1 [facility] LUMBOSACR INC INC AL MINIMUM 4 VIEWS RADEX 72872 [facility] SPINE 1 [facility] LUMBOSACR INC INC AL MINIMUM 4 VIEWS URNLS DIP 85682 [facility] 0 [facility] STICK/TAB INC INC LET REAGENT AUTO MICROSCOP Y RADEX 20944 [facility] ABDOMEN 1 0 [facility] INC INC ANTEROPOS TERIOR VIEW RADIOLOGI 33241 [facility] C 0 [facility] EXAMINATI INC INC ON KNEE 3 VIEWS URINLS 76889 A C KARIN DIP 0 [place] LAWSON MARIANA STICK/TAB PSC LET REAGNT NON-AUTO MICRSCPY CULTURE 17199 [facility] BACTERIAL 0 [facility]r [facility] QUANTTATI VE COLONY COUNT URINE CULTURE 47141 [facility] BCT 0 [facility] ISOL&PRSM PTV ID ISOLATE EA URINE RADIOLOGI 87559 LIZ LIZ C 0 [facility] EXAMINATI INC INC ON KNEE 3 VIEWS APPL 52189 [facility] MODALITY 0 [facility] 1/> AREAS INC INC ELEC STIMJ UNATTENDE D APPL 67958 [facility] MODALITY 0 [facility] 1/> AREAS INC INC IONTOPHOR ESIS EA 15 MIN THERAPEUT 89329 LI[facility] IC PX 1/> 0 [facility] AREAS INC INC EACH 15 MIN EXERCISES APPLICATI 28371 [facility] ON 0 [facility] MODALITY INC INC 1/> AREAS HOT/COLD PACKS APPL 35405 [facility] MODALITY 0 [facility] 1/> AREAS INC INC ULTRASOUN D EA 15 MIN APPL 23134 [facility] MODALITY 0 [facility] 1/> AREAS INC INC ULTRASOUN D EA 15 MIN APPLICATI 97059 LIZ IHLL ON 0 [facility] MODALITY INC INC 1/> AREAS HOT/COLD PACKS PHYSICAL 19001 [facility] THERAPY 0 [facility] EVALUATIO INC INC N APPL 35393 [facility] MODALITY 0 [facility] 1/> AREAS INC INC IONTOPHOR ESIS EA 15 MIN APPL 68305 [facility] MODALITY 0 [facility] 1/> AREAS INC INC ELEC STIMJ UNATTENDE D URINLS 26719 A Symone OWEN, Janett DIP 0 [place] Ashby STICK/TAB PSC LET REAGNT NON-AUTO MICRSCPY CUL BACT 17035 [facility] XCPT 0 [facility] URINE INC INC BLOOD/STO OL AEROBIC ISOL CUL BACT 96873 [facility] AEROBIC 0 [facility] ADDL INC INC METHS DEFINITIV E EA ISOL SUSCEPTIB 52693 [facility] LTY STDY 0 [facility] ANTIMICRB INC INC IAL MICRO/AGA R DILUTJ LAPAROSCO 85641 [facility] PY W/RMVL 0 PHYSICIAN KALEE ADNEXAL GROUP STRUCTURE PCC S BLOOD 56897 [facility] COUNT 0 [facility] [place] [address] PATHOLOGY PATHOLOGY SURG 0 & & PATHOLOGY CYTOLOGY CYTOLOGY LAB LAB GROSS&ABHAY ROSCOPIC EXAM LAPAROSCO 6564 [facility] PIC 0 [facility] REMOVAL INC INC OF REMAINING OVARY AND TUBE ANESTHESI 54219 [facility], 0 ANESTH JUAN Rebecca INTRAPERI OF THE [facility] [place] LOWER ABD W/LAPS NOS BLOOD 70399 [facility] COUNT 0 [facility] [place] [address] [facility] INFUSION 0 [facility] THERAPY INC INC PROPHYLAX IS/DX EA HOUR THERAPEUT 26139 [facility] IC 0 [facility] INJECTION [place] [address] [facility] INFUSION 0 [facility] THERAPY/P INC INC ROPHYLAXI S /DX 1ST TO 1 HR RADEX 28674 [facility] FOOT 0 [facility] COMPLETE INC INC MINIMUM 3 VIEWS BLOOD 58785 [facility] COUNT 0 [facility] COMPLETE INC INC AUTO&AUTO DIFRNTL WBC URNLS DIP 18993 [facility] 0 [facility] STICK/TAB INC INC LET REAGENT AUTO MICROSCOP Y US BREAST 22787 CROW MELANIE, REAL 0 MEDICAL JEWELL TIME IMAGING W/IMAGE ASSOCIATE DOCUMENTA S TION 3D 35240 CROW XIONGUTCHER, RENDERING 0 MEDICAL JEWELL IMAGING W/INTERP& ASSOCIATE POSTPROC S DIFF WORK STATION URNLS DIP 67611 [facility] 0 [facility] STICK/TAB INC [place] [address] CROW MELANIE, ABDOMEN 0 MEDICAL JEWELL W/O IMAGING CONTRAST ASSOCIATE MATERIAL S CT PELVIS 07758 [facility] W/O 0 [facility] CONTRAST INC INC MATERIAL COLLECTIO 81218 [facility] N 0 PHYSICIAN KALEE CAPILLARY GROUP BLOOD PCC SPECIMEN URINLS 20458 [facility] DIP 0 PHYSICIAN KALEE STICK/TAB GROUP LET PCC REAGNT NON-AUTO MICRSCPY BLOOD 62093 H [facility]PEL COUNT 0 PHYSICIAN KALEE HEMOGLOBI GROUP N PCC URINALYSI 14832 [facility] S 0 PHYSICIAN KALEE MICROSCOP GROUP IC ONLY PCC IMMUNOASS 64621 [facility] AY TUMOR 0 [facility] [place] [address] [facility] TRANSVAGI 0 PHYSICIAN [place] [address] [facility] NON-IMMUN 0 [facility] OLOGIC OTH/THN CYTOPATHI C CYTP C/V 03759 [facility] AUTO THIN 0 [facility] INC LYR PREPJ SCR MNL RESCR PHYS IADNA 91364 [facility] NEISSERIA 0 [facility] GONORRHOE AE AMPLIFIED PROBE TQ IADNA NOS 87415 SPECIALTY SPECIALTY 0 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 PROBE TQ IES INC IES INC EACH ORGANISM IADNA 75162 [facility] CHLAMYDIA 0 [facility] TRACHOMAT IS AMPLIFIED PROBE TQ RADIOLOGI 86835 CROW Symone TAYLOR EXAM 0 MEDICAL GARO P CHEST 2 IMAGING VIEWS ASSOCIATE FRONTAL&[place] [address] [facility] INFUSION 0 [facility] THERAPY/P INC INC ROPHYLAXI S /DX 1ST TO 1 HR URNLS DIP 83366 [facility] 9 [facility] STICK/TAB INC INC LET REAGENT AUTO MICROSCOP Y URINLS 77656 Janett RAO DIP 9 [place] LAWSON C STICK/TAB PSC LET REAGNT NON-AUTO MICRSCPY KO ELAST L1820 GRETA GRETA W/CONDYLR 9 SHIRLEY WATSON MD PADS&JNT PSC PSC PRFAB INCL FIT&[place] [address] [facility] ABDOMEN 9 [facility] W/O INC INC CONTRAST MATERIAL 3D 65941 [place] MELANIE, RENDERING 9 MEDICAL JEWELL IMAGING W/INTERP& ASSOCIATE POSTPROC S DIFF WORK STATION CT PELVIS 29132 [facility] W/O 9 [facility] CONTRAST INC INC MATERIAL URNLS DIP 96773 [facility] 9 [facility] STICK/TAB INC INC LET REAGENT AUTO MICROSCOP Y CULTURE 58197 [facility] BACTERIAL 9 [facility] INC INC QUANTTATI VE COLONY COUNT URINE Encounters Encounter Start End Date Code Location Performer Type Date EMERGENCY 73837 BEL IBARRA DEPT 7 7 PHYSICIAN VISIT S, [facility] HIGH SEVERITY& THREAT [facility] LIZ - 7 7 [facility] OUTPATIEN INC T EMERGENCY 66231 LIZ 7 7 [facility] DEPARTMEN INC T VISIT HIGH/URGE NT SEVERITY HOSPITAL LIZ - 7 7 [facility] OUTPATIEN INC T EMERGENCY 80777 LIZ 7 7 [facility] DEPARTMEN INC T VISIT MODERATE SEVERITY EMERGENCY 29805 BEL DOSS DEPT 7 7 PHYSICIAN VISIT S, [facility] HIGH SEVERITY& THREAT [facility] LIZ - 7 7 [facility] OUTPATIEN INC T OFFICE 34477 SCIFRES SCIFRES OUTPATIEN 6 6 ANG ANG T VISIT 10 MINUTES OFFICE 82474 JENNIFER RODRIGUEZ VIKA OUTPATIEN 6 6 T NEW 10 MINUTES EMERGENCY 60215 BEL RENUSCH 6 6 PHYSICIAN YOBANY [place] [facility] MODERATE SEVERITY OFFICE 70319 [facility] ELIAS OUTPATIEN 6 6 PHYSICIAN STONE T VISIT S GROUP PA-C MARC 15 MINUTES OFFICE 66771 [facility] ELIAS OUTPATIEN 6 6 PHYSICIAN STONE T VISIT S GROUP PA-C MARC 15 MINUTES OFFICE 17600 [facility] FRYMAN OUTPATIEN 6 6 PHYSICIAN EUG T VISIT S GROUP 15 MINUTES OFFICE 70312 [facility] SUDHAKAR OUTPATIEN 6 6 PHYSICIAN ABHAY T VISIT S GROUP 15 MINUTES OFFICE 38131 [facility] SUD[facility] OUTPATIEN 6 6 PHYSICIAN ABHAY T VISIT S GROUP 15 MINUTES OFFICE 26367 [facility] ROBEL TOD CONSULTAT 6 6 PHYSICIAN ION S GROUP NEW/ESTAB PATIENT 30 MIN OFFICE 53926 [facility] SUDHAKAR OUTPATIEN 6 6 PHYSICIAN ABHAY T VISIT S GROUP 15 MINUTES OFFICE 02246 [facility] ELIAS OUTPATIEN 6 6 PHYSICIAN STONE T VISIT S GROUP PA-C MARC 10 MINUTES OFFICE 76812 [facility] SUDHAKAR OUTPATIEN 5 5 PHYSICIAN ABHAY T VISIT S GROUP 15 MINUTES HOSPITAL LIZ - 5 5 [facility] OUTPATIEN INC T EMERGENCY 49645 BEL IBARRA DEPT 5 5 PHYSICIAN ABHAY VISIT S, PLLC HIGH SEVERITY& THREAT [facility] OFFICE 99521 LIZ OUTPATIEN 5 5 [facility] T VISIT HOSPITAL 15 MINUTES INITIAL 38526 JOHNATHON CAUSEY PREVENTIV 5 5 MARIUM Gilman MEDICINE NEW PT AGE 18-39YRS OFFICE 57471 [facility] SUDHAKAR OUTPATIEN 5 5 PHYSICIAN ABHAY T VISIT S GROUP 25 MINUTES EMERGENCY 54669 BEL CARDOZOUGHN 5 5 PHYSICIAN [facility] T VISIT HIGH/URGE NT SEVERITY OFFICE 00346 [facility] SUDHAKAR OUTPATIEN 5 5 PHYSICIAN ABHAY T VISIT S GROUP 10 MINUTES OFFICE 28218 [facility] SUDH[facility] OUTPATIEN 5 5 PHYSICIAN ABHAY T VISIT S GROUP 15 MINUTES HOSPITAL LIZ - 5 5 [facility] OUTPATIEN INC T OFFICE 41512 [facility] SUD[facility]AR OUTPATIEN 5 5 PHYSICIAN ABHAY T VISIT S GROUP 15 MINUTES HOSPITAL LIZ - 5 5 [facility] OUTPATIEN INC T EMERGENCY 74753 LIZ BETHEA WARREN 5 5 [facility] T VISIT P LOW/MODER SEVERITY OFFICE 99871 [facility] SUDHAKAR OUTPATIEN 5 5 PHYSICIAN ABHAY T VISIT S GROUP 10 MINUTES OFFICE 95920 [facility] PETTEY OUTPATIEN 5 5 PHYSICIAN JAM T VISIT S GROUP 25 MINUTES OFFICE 99339 [facility] SUD[facility] OUTPATIEN 5 5 PHYSICIAN ABHAY T VISIT S GROUP 15 MINUTES OFFICE 16154 [facility] SUD[facility] OUTPATIEN 5 5 PHYSICIAN ABHAY T NEW 20 S GROUP MINUTES OFFICE 21144 A C KILPELA OUTPATIEN 4 4 [place] LAWSON JEJanett T VISIT PSC 15 MINUTES OFFICE 77976 A C KILPELA OUTPATIEN 4 4 [place] FAROOQ T VISIT PSC 15 MINUTES Emergency DALE Gaines (ER) 4 17:56 4 19:14 [facility] Juan Garcia Emergency DALE Clark MD (ER) 3 15:45 3 18:22 [facility] OFFICE 52340 PETERSON PEGUERO 3 3 DWI DWI T VISIT 15 MINUTES Emergency DALE FELIZ MD (ER) 3 16:17 3 18:26 [facility] EMERGENCY 81766 TRAY FELIZ DEPT 3 3 [facility] VISIT HIGH SEVERITY& THREAT FUNCJ EMERGENCY 88267 LIZ 3 3 [facility] DEPARTMEN INC T VISIT HIGH/URGE NT SEVERITY HOSPITAL LIZ - 3 3 [facility] OUTPATIEN INC T Emergency DALE Carter MD (ER) 3 18:34 3 19:21 [facility] EMERGENCY 27959 [facility] 3 3 DEPARTMEN T VISIT MODERATE SEVERITY EMERGENCY 80918 LIZ 3 3 [facility] DEPARTMEN INC T VISIT LOW/MODER SEVERITY HOSPITAL LIZ - 3 3 [facility] OUTPATIEN INC T Emergency DALE HARTMAN MD (ER) 3 16:41 3 17:29 [facility] EMERGENCY 07676 DAVID Grande 3 3 EMERGENCY DEPARTMEN SERVICES T VISIT MODERATE SEVERITY Emergency DALE Ibarra MD (ER) 3 21:06 3 21:53 [facility] EMERGENCY 04219 SUDHAKAR IBARRA 3 3 ABHAY ABHAY DEPARTMEN T VISIT MODERATE SEVERITY HOSPITAL LIZ - 3 3 [facility] OUTPATIEN INC T EMERGENCY 23753 LIZ 3 3 [facility] DEPARTMEN INC T VISIT LOW/MODER SEVERITY OFFICE 16775 PETERSON PEGUERO 3 3 DWI DWI T VISIT 15 MINUTES EMERGENCY 67131 LIZ 3 3 [facility] DEPARTMEN INC T VISIT MODERATE SEVERITY EMERGENCY 25880 LIANA GAINES 3 3 III DERRICK III DERRICK DEPARTMEN T VISIT HIGH/URGE NT SEVERITY HOSPITAL LIZ - 3 3 [facility] OUTPATIEN INC T EMERGENCY 19309 LIANA GAINES DEPT 2 2 III DERRICK III DERRICK VISIT HIGH SEVERITY& THREAT FUNCJ EMERGENCY 69892 DAVID HOBSON 2 2 EMERGENCY [facility] SERVICES T VISIT MODERATE SEVERITY EMERGENCY 92977 DAVID GÓMEZ 2 2 EMERGENCY DEPARTMEN SERVICES T VISIT HIGH/URGE NT SEVERITY EMERGENCY 52244 LIANA GAINES 2 2 [facility] H[facility] LIZ - 2 2 [facility] OUTPATIEN INC T EMERGENCY 05719 LIZ 2 2 [facility] DEPARTMEN INC T VISIT LOW/MODER SEVERITY OFFICE 10219 MAMIE MORRIS OUTPATIEN 2 2 T NEW 20 MINUTES HOSPITAL LIZ - 2 2 [facility] OUTPATIEN INC T OFFICE 31042 PETERSON WINKLER JR OUTPATIEN 2 2 DWI DWI T VISIT 15 MINUTES EMERGENCY 27031 LIANA GAINES 2 2 III DERRICK III DERRICK DEPARTMEN T VISIT HIGH/URGE NT SEVERITY HOSPITAL LIZ - 2 2 [facility] OUTPATIEN INC T OFFICE 23425 PETTEY PETTEY OUTPATIEN 2 2 JAM JAM T VISIT 15 MINUTES HOSPITAL LIZ - 2 2 [facility] OUTPATIEN INC T OFFICE 61826 PETTEY PETTEY OUTPATIEN 2 2 JAM JAM T VISIT 15 MINUTES HOSPITAL LIZ - 2 2 [facility] OUTPATIEN INC T OFFICE 99265 PETTEY PETTEY OUTPATIEN 2 2 JAM JAM T VISIT 15 MINUTES OFFICE 99747 PETERSON JR PETERSON JR OUTPATIEN 2 2 DWI DWI T VISIT 15 MINUTES OFFICE 68223 PETERSON JR PETERSON JR OUTPATIEN 2 2 DWI DWI T VISIT 15 MINUTES OFFICE 19133 PETERSON JR PETERSON JR OUTPATIEN 2 2 DWI DWI T VISIT 15 MINUTES OFFICE 57888 PETERSON DWI PETERSON DWI OUTPATIEN 2 2 T VISIT 15 MINUTES OFFICE 82218 PETERSON JR PETERSON JR OUTPATIEN 2 2 DWI DWI T VISIT 15 MINUTES HOSPITAL LIZ - 1 1 [facility] OUTPATIEN INC T EMERGENCY 36167 HERNANDEZ KEYUR HERNANDEZ KEYUR 1 1 DEPARTMEN T VISIT MODERATE SEVERITY EMERGENCY 21136 LIZ 1 1 [facility] DEPARTMEN INC T VISIT LOW/MODER SEVERITY OFFICE 70455 PETERSON DWI PETERSON DWI OUTPATIEN 1 1 T VISIT 15 MINUTES EMERGENCY 50214 LIANA GAINES 1 1 III DERRICK III DERRICK DEPARTMEN T VISIT HIGH/URGE NT SEVERITY HOSPITAL LIZ - 1 1 [facility] OUTPATIEN INC T EMERGENCY 81139 LIZ 1 1 [facility] DEPARTMEN INC T VISIT LIMITED/M INOR PROB OFFICE 95505 PETTEY PETTEY OUTPATIEN 1 1 JAM JAM T NEW 30 MINUTES OFFICE 41908 PETERSON JR PETERSON JR OUTPATIEN 1 1 DWI DWI T VISIT 15 MINUTES EMERGENCY 58549 LIZ 1 1 [facility] DEPARTMEN INC T VISIT LOW/MODER SEVERITY EMERGENCY 83610 HERNANDEZ KEYUR HERNANDEZ KEYUR 1 1 DEPARTMEN T VISIT HIGH/URGE NT SEVERITY HOSPITAL LIZ - 1 1 [facility] OUTPATIEN [facility] T OFFICE 12843 PETERSON WINKLER JR OUTPATIEN 1 1 DWI DWI T VISIT 15 MINUTES EMERGENCY 44348 LIZ 1 1 [facility] T VISIT LIMITED/M INOR PROB HOSPITAL LIZ - 1 1 [facility] OUTPATIEN [facility] T EMERGENCY 03048 DAVID GAINES 1 1 EMERGENCY III [facility] SERVICES T VISIT MODERATE SEVERITY OFFICE 13011 ELFEGO TELLES OUTPATIEN 1 1 KEYUR KEYUR T NEW 10 MINUTES HOSPITAL LIZ - 1 1 [facility] EMERGENC[facility] 93804 LIZ 1 1 [facility] T VISIT LOW/MODER SEVERITY EMERGENCY 63835 DAVID COOLEY 1 1 EMERGENCY [facility] SERVICES T VISIT HIGH/URGE NT SEVERITY EMERGENCY 32246 LIZ 1 1 [facility] T VISIT LOW/MODER SEVERITY HOSPITAL LIZ - 1 1 [facility] OUTPATIEN [facility] HOSPITAL LIZ - 1 1 [facility] T EMERGENCY 52575 LIZ 1 1 [facility] T VISIT LIMITED/M INOR PROB EMERGENCY 37016 LIZ 1 1 [facility] T VISIT LOW/MODER SEVERITY HOSPITAL LIZ - 1 1 [facility] OUTPATIEN [facility] T EMERGENCY 98313 LIZ 1 1 [facility] T VISIT LIMITED/M INOR PROB EMERGENCY 09908 DAVID GAINES 1 1 EMERGENCY III [facility] SERVICES T VISIT MODERATE SEVERITY HOSPITAL LIZ - 1 1 [facility] OUTPATIEN [facility] T OFFICE 00747 PETERSON PETERSON DWI OUTPATIEN 1 1 MORRIS T VISIT 15 MINUTES HOSPITAL LIZ - 1 1 [facility] OUTPATIEN INC T EMERGENCY 34068 LIZ 1 1 [facility] DEPARTMEN INC T VISIT LOW/MODER SEVERITY EMERGENCY 10041 DAVID GAINES 1 1 [facility] HIGH/URGE NT SEVERITY OFFICE 74970 [facility] OUT[facility]EN 1 1 PHYSICIAN KALEE T VISIT GROUP 15 PCC MINUTES EMERGENCY 27303 DAVID OLIVARES 1 1 EMERGENCY DEPARTMEN SERVICES T VISIT HIGH/URGE NT SEVERITY EMERGENCY 17505 LIZ 1 1 [facility] INC T VISIT MODERATE SEVERITY HOSPITAL LIZ - 1 1 [facility] OUTPATIEN INC T OFFICE 17245 [facility] OUTPATIEN 1 1 PHYSICIAN KALEE T VISIT GROUP 15 PCC MINUTES EMERGENCY 73818 DAVID GAINES 1 1 EMERGENCY III [facility] SERVICES T VISIT HIGH/URGE NT SEVERITY EMERGENCY 87971 LIZ 1 1 [facility] DEPARTMEN INC T VISIT LOW/MODER SEVERITY HOSPITAL LIZ - 1 1 [facility] OUTPATIEN INC T EMERGENCY 55471 DAVID IBARRA 1 1 [facility] HIGH/URGE NT SEVERITY [facility] LIZ - 1 1 [facility] OUTPATIEN INC T EMERGENCY 54717 LIZ 1 1 [facility] DEPARTMEN INC T VISIT LIMITED/M INOR PROB HOSPITAL LIZ - 1 1 [facility] OUTPATIEN INC T EMERGENCY 69418 DAVID BAER 1 1 EMERGENCY DEPARTMEN SERVICES T VISIT HIGH/URGE NT SEVERITY EMERGENCY 32774 LIZ 1 1 [facility] DEPARTMEN INC T VISIT LOW/MODER SEVERITY EMERGENCY 19866 [place] 1 1 [facility] T VISIT LOW/MODER SEVERITY HOSPITAL [place] - 1 1 [facility] T EMERGENCY 29661 DAVID MAYO 1 1 EMERGENCY DEPARTMEN SERVICES T VISIT MODERATE SEVERITY HOSPITAL LIZ - 1 1 [facility] OUTPATIEN INC T EMERGENCY 21152 DAVID OLIVARES 1 1 EMERGENCY DEPARTMEN SERVICES T VISIT MODERATE SEVERITY OFFICE 25759 PETERSON PETERSON [facility] 1 1 MORRIS T VISIT 15 MINUTES EMERGENCY 25104 DAVID HERNANDEZ KEYUR 1 1 EMERGENCY DEPARTMEN SERVICES T VISIT HIGH/URGE NT SEVERITY EMERGENCY 28531 LIZ 1 1 [facility] DEPARTMEN INC T VISIT LOW/MODER SEVERITY HOSPITAL LIZ - 1 1 [facility] OUTPATIEN [facility] LIZ - 1 1 [facility] OUTPATIEN [facility] T EMERGENCY 86953 LIZ 1 1 [facility] DEPARTMEN INC T VISIT MODERATE SEVERITY EMERGENCY 17594 DAVID MANZANO 1 1 EMERGENCY [facility] DEPARTMEN SERVICES T VISIT HIGH/URGE NT SEVERITY EMERGENCY 33695 DAVID IBARRA 1 1 EMERGENCY [facility] DEPARTMEN SERVICES T VISIT HIGH/URGE NT SEVERITY EMERGENCY 27172 LIZ 1 1 [facility] DEPARTMEN INC T VISIT LOW/MODER SEVERITY HOSPITAL LIZ - 1 1 [facility] OUTPATIEN INC T EMERGENCY 48839 DAVID HERNANDEZ KEYUR 1 1 EMERGENCY DEPARTMEN SERVICES T VISIT MODERATE SEVERITY HOSPITAL LIZ - 1 1 [facility] OUTPATIEN INC T EMERGENCY 78166 LIZ 1 1 [facility] DEPARTMEN INC T VISIT LOW/MODER SEVERITY OFFICE 06105 [facility] OUTPATIEN 1 1 [place] T VISIT 15 MINUTES OFFICE 67978 [facility] OUTPATIEN 1 1 [place] T VISIT 15 MINUTES EMERGENCY 50175 LIZ 1 1 [facility] DEPARTMEN INC T VISIT MODERATE SEVERITY EMERGENCY 02055 DAVID IBARRA 1 1 EMERGENCY [facility] DEPARTMEN SERVICES T VISIT HIGH/URGE NT SEVERITY HOSPITAL LIZ - 1 1 [facility] OUTPATIEN INC T EMERGENCY 84394 DAVID GAINES 1 [facility]URGE NT SEVERITY EMERGENCY 55520 LIZ 1 1 [facility] DEPARTMEN INC T VISIT MODERATE SEVERITY HOSPITAL LIZ - 1 1 [facility] OUTPATIEN [facility] T EMERGENCY 53296 DAVID BAER 1 1 EMERGENCY [facility] SERVICES T VISIT HIGH/URGE NT SEVERITY EMERGENCY 91167 LIZ 1 1 [facility] DEPARTMEN INC T VISIT MODERATE SEVERITY HOSPITAL LIZ - 1 1 [facility] OUTPATIEN INC T OFFICE 01271 [facility] OUTPATIEN 1 1 [place] T VISIT 15 MINUTES EMERGENCY 52894 DAVID OLIVARES 1 1 [facility] MODERATE SEVERITY EMERGENCY 77801 LIZ 1 1 [facility] DEPARTMEN INC T VISIT LOW/MODER SEVERITY HOSPITAL LIZ - 1 1 [facility] OUTPATIEN [facility] T OFFICE 01767 LIZ JADE OUTPATIEN 1 1 [facility] T VISIT HOSPITAL 25 P MINUTES EMERGENCY 20069 [place] 1 1 [facility] H[facility]PITAL T VISIT MODERATE SEVERITY HOSPITAL [place] - 1 1 [facility] T EMERGENCY 46592 DAVID IBARRA 1 1 EMERGENCY [facility] DEPARTMEN SERVICES T VISIT HIGH/URGE NT SEVERITY HOSPITAL LIZ - 1 1 [facility] OUTPATIEN INC T EMERGENCY 19996 [facility]ER SEVERITY OFFICE 53237 PET[facility] WINKLER [facility] OUTPATIEN 1 1 [place] T VISIT 15 MINUTES HOSPITAL LIZ - 1 1 [facility] OUTPATIEN INC T OFFICE 64512 [facility] W[facility] OUTPATIEN 1 1 [place] T VISIT 15 MINUTES OFFICE 82847 AMARILIS BROWNCHAN OUTPATIEN 1 1 [facility] T VISIT 15 MINUTES OFFICE 93813 Janett Rowland OUTPATIEN 1 1 [facility] T VISIT PSC 15 MINUTES EMERGENCY 50117 DAVID GAINES 1 1 EMERGENCY III [facility] DEPARTMEN SERVICES T VISIT HIGH/URGE NT SEVERITY EMERGENCY 95151 LIZ 1 1 [facility] T VISIT LOW/MODER SEVERITY HOSPITAL LIZ - 1 1 [facility] OUTPATIEN [facility] T OFFICE 42567 PETERSON WINKLER [facility] OUTPATIEN 1 1 [facility] T VISIT 15 MINUTES OFFICE 82796 [facility] OUT[facility] 1 1 IMPLANT & III VINICIO T NEW 20 ORAL MINUTES SURGERY C EMERGENCY 94956 DAVID OLIVARES 1 1 EMERGENCY DEPARTMEN SERVICES T VISIT HIGH/URGE NT SEVERITY EMERGENCY 34878 [facility] LIZ - 1 1 [facility] OUT[facility]EN [facility] T OFFICE 25037 PETERSON WINKLER DWI OUTPATIEN 1 1 [facility] T VISIT 15 MINUTES OFFICE 90847 RUI RUTHN CONSULTAT 1 1 NEUROLOGY [facility] NEW/ESTAB KARISHMA PATIENT 80 MIN OFFICE 01918 PETERSON WINKLER [facility] OUTPATIEN 1 1 [facility] T VISIT 15 MINUTES [facility]OSPITAL [facility]Z - 1 1 [facility] INC T OFFICE 46355 [facility] WINKLER [facility] OUTPATIEN 1 1 [facility] T VISIT 15 MINUTES OFFICE 87351 [facility] OUT[facility] 1 1 PHYSICIAN KALEE T VISIT GROUP 15 PCC MINUTES EMERGENCY 95580 LIZ 1 1 [facility] DEPARTMEN INC T VISIT MODERATE SEVERITY [facility]OSPITAL LIZ - 1 1 [facility] OUT[facility] INC T EMERGENCY 77287 DAVID HERNANDEZ KEYUR 1 1 EMERGENCY DEPARTMEN SERVICES T VISIT HIGH/URGE NT SEVERITY OFFICE 51715 [facility] OUTPATIEN 1 1 [facility] T VIS[facility] 5 CENTER CENTER MINUTES HOSPITAL LIZ - 1 1 [facility] T OFFICE 58846 [facility] 1 1 PHYSICIAN KALEE T VISIT GROUP 15 PCC MINUTES OFFICE 24021 [facility] OUTPATIEN 1 1 [facility] T NEW 10 CENTER CENTER MINUTES OFFICE 34805 PETERSON WINKLER [facility] OUTPATIEN 1 1 [facility] T VISIT 25 MINUTES EMERGENCY 96048 DAVID CARTER BAB 1 1 EMERGENCY DEPARTMEN SERVICES T VISIT HIGH/URGE NT SEVERITY HOSPITAL [facility]Z - 1 1 [facility] OUTPATI[facility] INC T EMERGENCY 53097 LIZ 1 1 [facility] DEPARTMEN INC T VISIT LOW/MODER SEVERITY OFFICE 19905 PETERSON WINKLER [facility] OUTPATIEN 1 1 [facility] T VISIT 15 MINUTES [facility]OSPITAL LIZ - 1 1 [facility] T OFFICE 04181 [facility] 0 0 PHYSICIAN KALEE T VISIT GROUP 15 PCC MINUTES OFFICE 79937 PETERSON WINKLER [facility] OUTPATIEN 0 0 [place] T VISIT 15 MINUTES OFFICE 73296 PETERSON WINKLER [facility]I OUTPATIEN 0 0 [facility] T VISIT 15 MINUTES OFFICE 28611 PETERSON WINKLER [facility]I OUTPATIEN 0 0 [facility] T VISIT 15 MINUTES OFFICE 51201 PETERSON WINKLER [facility] OUTPATIEN 0 0 [facility] T VISIT 15 MINUTES HOSPITAL LIZ - 0 0 [facility] OUTPATIEN INC T EMERGENCY 27824 DAVID CARTER BAB 0 0 EMERGENCY DEPARTMEN SERVICES T VISIT HIGH/URGE NT SEVERITY HOSPITAL LIZ - 0 0 [facility] OUTPATIEN INC T EMERGENCY 30867 LIZ 0 0 [facility] DEPARTMEN INC T VISIT LOW/MODER SEVERITY OFFICE 91864 A Symone OWEN A OUTPATIEN 0 0 [place] LAWSON T VISIT PSC 15 MINUTES EMERGENCY 65859 LIZ 0 0 [facility] DEPARTMEN INC T VISIT LIMITED/M INOR [facility] LIZ - 0 0 [facility] OUTPATIEN INC T OFFICE 19553 PETERSON WINKLER [facility]I OUTPATIEN 0 0 [place] T VISIT 15 MINUTES EMERGENCY 91593 DAVID SCHULTZ AND 0 0 EMERGENCY DEPARTMEN SERVICES T VISIT HIGH/URGE NT SEVERITY OFFICE 97020 PETERSON WINKLER [facility] OUTPATIEN 0 0 [facility] T VISIT 15 MINUTES OFFICE 22276 A Symone OWEN A OUTPATIEN 0 0 [place] LAWSON T VISIT PSC 15 MINUTES OFFICE 10030 PETERSON WINKLER DWI OUTPATIEN 0 0 [facility] T VISIT 15 MINUTES OFFICE 25715 [facility] OUTPATI[facility] 0 0 PHYSICIAN KALEE T VISIT GROUP 15 PCC MINUTES OFFICE 29945 Janett FRAZIER OUTPATIEN 0 0 [place] PEÑA T VISIT PSC 15 MINUTES OFFICE 07715 MARIELENA ANTONIO 0 0 [facility] MORRIS E T VISIT EMD 15 MINUTES OFFICE 14666 LINDSAY MONTOYA OUTPATIEN 0 0 SILVIA A SILVIA A T VISIT 15 MINUTES OFFICE 51719 MARIELENA ANTONIO 0 0 [facility] MORRIS E T VISIT EMD 15 MINUTES EMERGENCY 24309 LIZ 0 0 [facility] DEPARTMEN INC T VISIT LIMITED/M INOR PROB EMERGENCY 43309 DAVID CARTER, 0 0 EMERGENCY [facility] DEPARTMEN SERVICES O T VISIT HIGH/URGE ASSOCIATE NT S SEVERITY HOSPITAL LIZ - 0 0 [facility] INC T OFFICE 97415 LINDSAY MONTOYA OUTPATIEN 0 0 SILVIA A SILVIA A T VISIT 15 MINUTES OFFICE 54570 MARIELENA ANTONIO 0 0 [facility] M[facility]RIS E T VISIT EMD 15 MINUTES HOSPITAL LIZ - 0 0 [facility] OUTPATIEN INC T EMERGENCY 91612 LIZ 0 0 [facility] DEPARTMEN INC T VISIT LOW/MODER SEVERITY EMERGENCY 93020 DAVID IBARRA, 0 0 EMERGENCY AUDREY S DEPARTMEN SERVICES T VISIT HIGH/URGE ASSOCIATE NT S SEVERITY EMERGENCY 88454 DAVID GAINES 0 0 EMERGENCY III, DEPARTMEN SERVICES JUAN T VISIT HIGH/URGE ASSOCIATE NT S SEVERITY HOSPITAL LIZ - 0 0 [facility] OUTPATIEN INC T OFFICE 14836 LINDSAY MONTOYA OUTPATIEN 0 0 SILVIA A SILVIA A T VISIT 15 MINUTES EMERGENCY 60958 LIZ 0 0 [facility] DEPARTMEN INC T VISIT LOW/MODER SEVERITY OFFICE 83894 MARIELENA ANTONIO 0 0 [facility] MORRIS E T VISIT EMD 15 MINUTES HOSPITAL LIZ - 0 0 [facility] OUTPATIEN INC T EMERGENCY 04570 DAVID CARTER, 0 0 EMERGENCY GAET[facility]O DEPARTMEN SERVICES O T VISIT HIGH/URGE ASSOCIATE NT S SEVERITY EMERGENCY 70924 LIZ 0 0 [facility] DEPARTMEN INC T VISIT LIMITED/M INOR PROB OFFICE 47538 MARIELENA ANTONIO 0 0 [facility] MORRIS E T VISIT EMD 15 MINUTES HOSPITAL LIZ - 0 0 [facility] OUTPATIEN INC T OFFICE 45393 MARIELENA ANTONIO 0 0 [facility] MORRIS E T VISIT EMD 15 MINUTES OFFICE 97601 [facility] 0 PHYSICIAN KALEE T VISIT GROUP 15 PCC MINUTES OFFICE 15270 MARIELENA ANTONIO 0 0 [facility] MORRIS E T VISIT EMD 15 MINUTES OFFICE 01187 MARIELENA ANTONIO 0 0 [facility]RIS E T VISIT EMD 15 MINUTES [facility]OSPITAL LIZ - 0 0 [facility] OUTPATIEN INC T EMERGENCY 26289 DAVID GAINES 0 0 EMERGENCY III, DEPARTMEN SERVICES JUAN T VISIT HIGH/URGE ASSOCIATE NT S SEVERITY EMERGENCY 99805 [facility]Z 0 0 [facility] DEPARTMEN INC T VISIT LIMITED/M INOR PROB OFFICE 93270 Janett RAO OUTPATIEN 0 0 [place] Ashby T VISIT PSC 15 MINUTES OFFICE 58160 LINDSAY MONTOYA OUTPATIEN 0 0 SILVIA [place]land T VISIT 15 MINUTES EMERGENCY 23828 DAVID IBARRA, 0 0 EMERGENCY AUDREY S DEPARTMEN SERVICES T VISIT HIGH/URGE ASSOCIATE NT S SEVERITY [facility]OSPITAL LIZ - 0 0 [facility] OUTPATIEN INC T EMERGENCY 57578 LIZ 0 0 [facility] DEPARTMEN INC T VISIT LIMITED/M INOR PROB OFFICE 19963 Janett RAO OUTPATIEN 0 0 [place] Ashby T VISIT PSC 15 MINUTES OFFICE 45251 [facility] OUTPATIEN 0 0 PHYSICIAN KALEE T VISIT GROUP 15 PCC MINUTES HOSPITAL LIZ - 0 0 [facility] OUTPATIEN INC T EMERGENCY 38322 DAVID CARTER, 0 0 EMERGENCY [facility]ET[facility] DEPARTMEN SERVICES O T VISIT MODERATE ASSOCIATE SEVERITY S EMERGENCY 86521 LIZ 0 0 [facility] DEPARTMEN INC T VISIT LIMITED/M INOR [facility] 18037 [facility] T VISIT GROUP 15 PCC MINUTES HOSPITAL LIZ - 0 0 [facility] OUTPATIEN INC T OFFICE 72828 MARIELENA ANTONIO 0 0 [facility] MORRIS E T VISIT EMD 15 MINUTES HOSPITAL LIZ - 0 0 [facility] OUTPATIEN INC T OFFICE 93484 MARIELENA ANTONIO 0 0 [facility] MORRIS E T VISIT EMD 15 MINUTES HOSPITAL LIZ - 0 0 [facility]PATIEN INC T [facility] LIZ - 0 0 [facility]PATI[facility] INC T [facility]PITAL LIZ - 0 0 [facility] OUTPATIEN INC T EMERGENCY 59181 LIZ 0 0 [facility] DEPARTMEN INC T VISIT LOW/MODER SEVERITY EMERGENCY 34676 DAVID IBARRA, 0 0 EMERGENCY [facility] DEPARTMEN SERVICES T VISIT HIGH/URGE ASSOCIATE NT S SEVERITY OFFICE 02627 [facility] HOUSE[facility]EN 0 0 PHYSICIAN KALEE T VISIT GROUP 15 PCC MINUTES HOSPITAL LIZ - 0 0 [facility] OUTPATIEN INC T OFFICE 06632 MARIELENA ANTONIO 0 0 [facility] MORRIS E T VISIT EMD 15 MINUTES OFFICE 21613 MOUNA ANTONIOEN 0 0 [facility]IS E T VISIT EMD 15 MINUTES [facility]OSPITAL LIZ - 0 0 [facility]PAT[facility]EN INC T [facility] LIZ - 0 0 [facility]PAT[facility] INC T OFFICE 06500 [facility] OUTPATIEN 0 0 PHYSICIAN KALEE T VISIT GROUP 15 PCC MINUTES EMERGENCY 12147 LIZ 0 0 [facility] DEPARTMEN INC T VISIT LIMITED/M INOR [facility] LIZ - 0 0 [facility] OUTPATIEN INC T EMERGENCY 15404 DAVID CARTER, 0 0 EMERGENCY [place] DEPARTMEN SERVICES O T VISIT HIGH/URGE ASSOCIATE NT S SEVERITY OFFICE 05621 MARIELENA ANTONIO 0 0 [facility] MORRIS E T VISIT EMD 15 MINUTES [facility]OSPITAL LIZ - 0 0 [facility] OUTPATIEN INC [facility] LIZ - 0 0 [facility] OUTPATIEN INC T OFFICE 76609 MARIELENA ANTONIO 0 0 [facility] MORRIS E T VISIT EMD 15 MINUTES EMERGENCY 25664 DAVID IBARRA DEPT 0 0 EMERGENCY [facility] VISIT SERVICES HIGH SEVERITY& ASSOCIATE THREAT S [facility] LIZ - 0 0 [facility] OUTPATIEN INC T EMERGENCY 70312 LIZ 0 0 [facility] DEPARTMEN INC T VISIT LOW/MODER SEVERITY OFFICE 62219 MARIELENA ANTONIO 9 9 M[facility]IS MORRIS E T VISIT EMD 15 MINUTES EMERGENCY 79714 DAVID GAINES 9 9 EMERGENCY [facility], DEPARTMEN SERVICES JUAN T VISIT HIGH/URGE ASSOCIATE NT S SEVERITY EMERGENCY 19683 LIZ 9 9 [facility] DEPARTMEN INC T VISIT LIMITED/M INOR PROB HOSPITAL LIZ - 9 9 [facility] OUTPATIEN INC T EMERGENCY 18393 DAVID KERN 9 9 EMERGENCY , [facility] DEPARTMEN SERVICES T VISIT MODERATE ASSOCIATE SEVERITY S OFFICE 38443 MARIELENA ANTONIO 9 9 [facility] MORRIS E T VISIT EMD 15 MINUTES EMERGENCY 15678 DAVID IBARRA, 9 9 EMERGENCY [facility] T VISIT MODERATE ASSOCIATE SEVERITY S HOSPITAL LIZ - 9 9 [facility] OUTPATIEN INC T EMERGENCY 04045 LIZ 9 9 [facility] DEPARTMEN INC T VISIT LOW/MODER SEVERITY EMERGENCY 20790 DAVID CARTER, 9 9 EMERGENCY [place] DEPARTMEN SERVICES O T VISIT HIGH/URGE ASSOCIATE NT S SEVERITY HOSPITAL LIZ - 9 9 [facility] OUTPATIEN INC T EMERGENCY 91493 LIZ 9 9 [facility] DEPARTMEN INC T VISIT LIMITED/M INOR PROB OFFICE 07581 MARIELENA ANTONIO 9 9 [facility]IS E T VISIT EMD 15 MINUTES HOSPITAL LIZ - 9 9 [facility] OUTPATIEN INC T EMERGENCY 63192 DAVID IBARRA, 9 9 EMERGENCY [facility] DEPARTMEN SERVICES T VISIT HIGH/URGE ASSOCIATE NT S SEVERITY EMERGENCY 03669 LIZ 9 9 [facility] DEPARTMEN INC T VISIT LIMITED/M INOR PROB OFFICE 17210 FAMILY WILSONMARIELENA 9 9 MARCELLUS CHAVARRIA T VISIT ASSOCIATE 15 S MINUTES OFFICE 09968 MARIELENA ANTONIO 9 9 [facility] MORRIS E T NEW 45 EMD MINUTES EMERGENCY 91699 DAVID MARCUS 9 9 EMERGENCY [place] DEPARTMEN SERVICES T VISIT MODERATE ASSOCIATE SEVERITY S EMERGENCY 86717 LIZ 9 9 [facility] DEPARTMEN INC T VISIT LIMITED/M INOR PROB [facility]OSPITAL LIZ - 9 9 [facility] OUTPATIEN INC T OFFICE 75908 Janett RAOPATIKAITLIN 9 9 [place] Ashby T VISIT PSC 15 MINUTES OFFICE 31706 JOSE ANTONIO BRADY OUTPATIEN 9 9 [place] T VISIT 40 MINUTES EMERGENCY 40565 DAVID CARTER, 9 9 EMERGENCY [place] DEPARTMEN SERVICES O T VISIT MODERATE ASSOCIATE SEVERITY S HOSPITAL LIZ - 9 9 [facility] OUTPATIEN INC T EMERGENCY 06394 LIZ 9 9 [facility] DEPARTMEN INC T VISIT LIMITED/M INOR PROB HOSPITAL LIZ - 9 9 [facility] OUTPATIEN INC T EMERGENCY 28279 [facility], 9 9 [facility] T VISIT PHYS INC MODERATE SEVERITY HOSPITAL LIZ - 9 9 [facility] OUTPATIEN INC T EMERGENCY 84390 LIZ 9 9 [facility] DEPARTMEN INC T VISIT LOW/MODER SEVERITY [facility]OSPITAL LIZ - 9 9 [facility] OUTPATIEN INC T [facility]OSPITAL LIZ [facility] 9 9 [facility] OUTPATIEN INC T EMERGENCY 99063 LIZ 9 9 [facility] T VISIT LOW/MODER SEVERITY EMERGENCY 74852 LIZ 9 9 [facility] T VISIT LIMITED/M INOR [facility] LIZ - 9 9 [facility] 97218 LINDSAY MONTOYA OUTPATIEN 9 9 S[place] T VISIT 15 MINUTES
--- OUTSIDE RECORDS SUMMARY | 2017-03-22 21:48 | External Medical Summary Rpt ---
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 ROPHYLAXI S /DX 1ST TO 1 HR ANES 35383 [facility] BRYCE NERVE 2 ANESTH MUSCLE OF THE TDN BLUE FASCIA&BU RSA FOREARM WRIST NEUROPLAS 10826 PETTEMily BROWNTEMily TY 2 JAM JAM &/TRANSP[place] [address] [facility] INFUSION 2 [facility] THERAPY/P INC INC ROPHYLAXI S /DX 1ST TO 1 HR THERAPEUT 70343 LIZ [facility] IC 2 [facility] INJECTION INC [place] [address] [facility]F[address] THERAPY INC INC PROPHYLAX IS/DX EA HOUR BASIC 45587 [facility] METABOLIC 2 [facility] PANEL INC INC CALCIUM TOTAL BLOOD 12501 LI[facility] COUNT [address] [facility] COMPLETE INC INC AUTO&AUTO DIFRNTL WBC ORTHOPANT 72762 ELFEGO TELLES OGRAM 1 KEYUR KEYUR RADIOLOGI 70729 [place] MELANIE C 1 MEDICAL LIZZETTE EXAMINATI IMAGING ON KNEE 3 ASS VIEWS RADEX 73499 [place] MELANIE SHOULDER 1 MEDICAL LIZZETTE COMPLETE IMAGING MINIMUM 2 ASS VIEWS RADEX 63090 LI[facility] SHOULDER 1 [facility] COMPLETE INC INC MINIMUM 2 VIEWS SLINGS A4565 [facility] 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 ASPIRATE IES IES INTERP & REPORT URNLS DIP 03307 LI[facility] 1 [facility] STICK/TAB INC INC LET REAGENT AUTO MICROSCOP Y INITIAL 88413 DAVID GAINES TX 1ST 1 EMERGENCY III DERRICK DEGREE SERVICES BURN LOCAL TX URNLS DIP 38261 LIZ JADE JR 1 [facility] STICK[facility] LET RGNT P NON-AUTO W/O MICRSCP RADIOLOGI 89915 [facility] XIONGMELANIE C 1 MEDICAL LIZZETTE EXAMINATI IMAGING ON KN[place] [address] [place] [address] LI[facility] ABDOMEN & 1 [facility] PELVIS INC INC W/O CONTRAST MATERIAL URNLS DIP 74523 LIZ [facility] 1 [facility] STICK/TAB INC INC LET REAGENT AUTO MICROSCOP Y 3D 80735 [facility] RENDERING 1 [facility] INC INC W/INTERP& POSTPROC DIFF WORK STATION URINLS 29097 A C BRAYDEN A DIP 1 [place] STICK/TAB PSC LET REAGNT NON-AUTO MICRSCPY RADEX 54948 [place] MELANIE SPINE 1 MEDICAL LIZZETTE LUMBOSACR IMAGING AL ASS MINIMUM 4 VIEWS RADIOLOGI 80303 [place] MELANIE C 1 MEDICAL LIZZETTE EXAMINATI IMAGING ON PELVIS ASS 1/2 VIEWS RADEX 32952 [facility] [place] [facility] SACRUM & 1 RADIOLOGY LD A COCCYX MINIMUM 2 VIEWS BONE 16980 [facility] [place] [facility] LENGTH 1 RADIOLOGY LD A STUDIES OPHTH 92276 [facility] VISION ANG XM&EVAL COMPRHNSV ESTAB PT 1/> URNLS DIP 85404 LIZ [facility]ILL 1 [facility] STICK/TAB INC INC LET REAGENT AUTO MICROSCOP Y US BREAST 37582 [facility] NAVARRO REAL 1 MEDICAL LIZZETTE TIME IMAGING W/IMAGE ASS DOCUMENTA TION DIAGNOSTI G0204 [facility] XIONGMELANIE C 1 MEDICAL LIZZETTE MAMMOGRAP IMAGING HY INCL ASS CAD WHEN PERF; BILAT SKIN TEST 50210 LI[facility] C[facility] SIS INTRADERM AL RADEX 25971 [facility] SPINE 1 [facility] LUMBOSACR INC INC AL MINIMUM 4 VIEWS RADEX 59133 [facility] SPINE 1 [facility] LUMBOSACR INC INC AL MINIMUM 4 VIEWS URNLS DIP 96013 [facility] 0 [facility] STICK/TAB INC INC LET REAGENT AUTO MICROSCOP Y RADEX 61100 [facility] ABDOMEN 1 0 [facility] INC INC ANTEROPOS TERIOR VIEW RADIOLOGI 40793 [facility] C 0 [facility] EXAMINATI INC INC ON KNEE 3 VIEWS URINLS 19659 A C KARIN DIP 0 BRAYDEN LAWSON MARIANA STICK/TAB PSC LET REAGNT NON-AUTO MICRSCPY CULTURE 12737 [facility] BACTERIAL 0 [employer] [facility] QUANTTATI VE COLONY COUNT URINE CULTURE 79805 [facility] BCT 0 [facility] ISOL&PRSM PTV ID ISOLATE EA URINE RADIOLOGI 67805 LZI LIZ C 0 [facility] EXAMINATI INC INC ON KNEE 3 VIEWS APPL 79161 [facility] MODALITY 0 [facility] 1/> AREAS INC INC ELEC STIMJ UNATTENDE D APPL 68491 [facility] MODALITY 0 [facility] 1/> AREAS INC INC IONTOPHOR ESIS EA 15 MIN THERAPEUT 94622 LIZ [facility] IC PX 1/> 0 [facility] AREAS INC INC EACH 15 MIN EXERCISES APPLICATI 28027 [facility] ON 0 [facility] MODALITY INC INC 1/> AREAS HOT/COLD PACKS APPL 08096 [facility] MODALITY 0 [facility] 1/> AREAS INC INC ULTRASOUN D EA 15 MIN APPL 32311 [facility] MODALITY 0 [facility] 1/> AREAS INC INC ULTRASOUN D EA 15 MIN APPLICATI 29983 [facility] ON 0 [facility] MODALITY INC INC 1/> AREAS HOT/COLD PACKS PHYSICAL 68028 [facility] THERAPY 0 [facility] EVALUATIO INC INC N APPL 69629 [facility] MODALITY 0 [facility] 1/> AREAS INC INC IONTOPHOR ESIS EA 15 MIN APPL 26719 [facility] MODALITY 0 [facility] 1/> AREAS INC INC ELEC STIMJ UNATTENDE D URINLS 76570 A Symone OWEN, Janett DIP 0 BRAYDEN Ashby STICK/TAB PSC LET REAGNT NON-AUTO MICRSCPY CUL BACT 94926 [facility] XCPT 0 [facility] URINE INC INC BLOOD/STO OL AEROBIC ISOL CUL BACT 99969 [facility] AEROBIC 0 [facility] ADDL INC INC METHS DEFINITIV E EA ISOL SUSCEPTIB 37044 [facility] LTY STDY 0 [facility] ANTIMICRB INC INC IAL MICRO/AGA R DILUTJ LAPAROSCO 42550 [facility] HARPEL PY W/RMVL 0 PHYSICIAN KALEE ADNEXAL GROUP STRUCTURE PCC S BLOOD 34950 [facility] COUNT 0 [facility] [address] PATHOLOGY PATHOLOGY SURG 0 & & PATHOLOGY CYTOLOGY CYTOLOGY LAB LAB GROSS&ABHAY ROSCOPIC EXAM LAPAROSCO 6564 [facility] PIC 0 [facility] REMOVAL INC INC OF REMAINING OVARY AND TUBE ANESTHESI 11904 [facility], 0 ANESTH JUAN Rebecca INTRAPERI OF THE TONEAL [place]UE[place] LOWER ABD W/LAPS NOS BLOOD 52567 [facility] COUNT 0 [facility] [place] [address] [facility] INFUSION 0 [facility] THERAPY INC INC PROPHYLAX IS/DX EA HOUR THERAPEUT 60119 [facility] IC 0 [facility] INJECTION INC [place] [address] [facility] INFUSION 0 [facility] THERAPY/P INC INC ROPHYLAXI S /DX 1ST TO 1 HR RADEX 14763 [facility] FOOT 0 [facility] COMPLETE INC INC MINIMUM 3 VIEWS BLOOD 94191 [facility] COUNT 0 [facility] COMPLETE INC INC AUTO&AUTO DIFRNTL WBC URNLS DIP 51623 [facility] 0 [facility] STICK/TAB INC INC LET REAGENT AUTO MICROSCOP Y US BREAST 44821 CROW MELANIE, REAL 0 MEDICAL JEWELL TIME IMAGING W/IMAGE ASSOCIATE DOCUMENTA S TION 3D 71493 CROW XIONGUTCHER, RENDERING 0 MEDICAL JEWELL IMAGING W/INTERP& ASSOCIATE POSTPROC S DIFF WORK STATION URNLS DIP 99965 [facility] 0 [facility] STICK/TAB INC [place] [address] CROW MELANIE, ABDOMEN 0 MEDICAL JEWELL W/O IMAGING CONTRAST ASSOCIATE MATERIAL S CT PELVIS 52737 [facility] W/O 0 [facility] CONTRAST INC INC MATERIAL COLLECTIO 62823 [facility] N 0 PHYSICIAN KALEE CAPILLARY GROUP BLOOD PCC SPECIMEN URINLS 35905 [facility] DIP 0 PHYSICIAN KALEE STICK/TAB GROUP LET PCC REAGNT NON-AUTO MICRSCPY BLOOD 10086 H HARPEL COUNT 0 PHYSICIAN KALEE HEMOGLOBI GROUP N PCC URINALYSI 59949 [facility] S 0 PHYSICIAN KALEE MICROSCOP GROUP IC ONLY PCC IMMUNOASS 62037 [facility] AY TUMOR 0 [facility] [place] [address] HM HARPEL TRANSVAGI 0 PHYSICIAN [place] [address] [facility] NON-IMMUN 0 [facility] OLOGIC OTH/THN CYTOPATHI C CYTP C/V 59612 [facility] AUTO THIN 0 [facility] INC LYR PREPJ SCR MNL RESCR PHYS IADNA 36910 [facility] NEISSERIA 0 [facility] GONORRHOE AE AMPLIFIED PROBE TQ IADNA NOS 05851 SPECIALTY SPECIALTY 0 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 PROBE TQ IES INC IES INC EACH ORGANISM IADNA 33130 [facility] CHLAMYDIA 0 [facility] TRACHOMAT IS AMPLIFIED PROBE TQ RADIOLOGI 29082 CROW Symone TAYLOR EXAM 0 MEDICAL GARO P CHEST 2 IMAGING VIEWS ASSOCIATE FRONTAL&[place] [address] [facility] INFUSION 0 [facility] THERAPY/P INC INC ROPHYLAXI S /DX 1ST TO 1 HR URNLS DIP 79628 [facility] 9 [facility] STICK/TAB INC INC LET REAGENT AUTO MICROSCOP Y URINLS 30994 Janett RAO DIP 9 BRAYDEN LAWSON C STICK/TAB PSC LET REAGNT NON-AUTO MICRSCPY KO ELAST L1820 GRETA GRETA W/CONDYLR 9 SHIRLEY WATSON MD PADS&JNT PSC PSC PRFAB INCL FIT&[place] [address] [facility] ABDOMEN 9 [facility] W/O INC INC CONTRAST MATERIAL 3D 37656 W[place] MELANIE, RENDERING 9 MEDICAL JEWELL IMAGING W/INTERP& ASSOCIATE POSTPROC S DIFF WORK STATION CT PELVIS 70062 [facility] W/O 9 [facility] CONTRAST INC INC MATERIAL URNLS DIP 73038 [facility] 9 [facility] STICK/TAB INC INC LET REAGENT AUTO MICROSCOP Y CULTURE 86368 [facility] BACTERIAL 9 [facility] INC INC QUANTTATI VE COLONY COUNT URINE Encounters Encounter Start End Date Code Location Performer Type Date EMERGENCY 06137 BEL IBARRA DEPT 7 7 PHYSICIAN VISIT S, [facility] HIGH SEVERITY& THREAT [facility] LIZ - 7 7 [facility] OUTPATIEN INC T EMERGENCY 82561 LIZ 7 7 [facility] DEPARTMEN INC T VISIT HIGH/URGE NT SEVERITY HOSPITAL LIZ - 7 7 [facility] OUTPATIEN INC T EMERGENCY 44713 LIZ 7 7 [facility] DEPARTMEN INC T VISIT MODERATE SEVERITY EMERGENCY 29142 BEL DOSS DEPT 7 7 PHYSICIAN VISIT S, [facility] HIGH SEVERITY& THREAT [facility] LIZ - 7 7 [facility] OUTPATIEN INC T OFFICE 30873 SCIFRES SCIFRES OUTPATIEN 6 6 ANG ANG T VISIT 10 MINUTES OFFICE 16025 JENNIFER RODRIGUEZ VIKA OUTPATIEN 6 6 T NEW 10 MINUTES EMERGENCY 70820 BEL RENUSCH 6 6 PHYSICIAN YOBANY [place] [facility] MODERATE SEVERITY OFFICE 99621 [facility] ELIAS OUTPATIEN 6 6 PHYSICIAN STONE T VISIT S GROUP PA-C MARC 15 MINUTES OFFICE 27010 [facility] ELIAS OUTPATIEN 6 6 PHYSICIAN STONE T VISIT S GROUP PA-C MARC 15 MINUTES OFFICE 59029 [facility] FRYMAN OUTPATIEN 6 6 PHYSICIAN EUG T VISIT S GROUP 15 MINUTES OFFICE 87023 [facility] SUDHAKAR OUTPATIEN 6 6 PHYSICIAN ABHAY T VISIT S GROUP 15 MINUTES OFFICE 78091 [facility] SUDHAKAR OUTPATIEN 6 6 PHYSICIAN ABHAY T VISIT S GROUP 15 MINUTES OFFICE 23465 [facility] ROBEL TOD CONSULTAT 6 6 PHYSICIAN ION S GROUP NEW/ESTAB PATIENT 30 MIN OFFICE 95709 [facility] SUDHAKAR OUTPATIEN 6 6 PHYSICIAN ABHAY T VISIT S GROUP 15 MINUTES OFFICE 03593 [facility] ELIAS OUTPATIEN 6 6 PHYSICIAN STONE T VISIT S GROUP PA-C MARC 10 MINUTES OFFICE 56542 [facility] SUDHAKAR OUTPATIEN 5 5 PHYSICIAN ABHAY T VISIT S GROUP 15 MINUTES HOSPITAL LIZ - 5 5 [facility] OUTPATIEN INC T EMERGENCY 44575 BEL IBARRA DEPT 5 5 PHYSICIAN ABHAY VISIT S, PLLC HIGH SEVERITY& THREAT [facility] OFFICE 79338 LIZ OUTPATIEN 5 5 [facility] 15 MINUTES INITIAL 11769 JOHNATHON CAUSEY PREVENTIV 5 5 MARIUM Gilman MEDICINE NEW PT AGE 18-39YRS OFFICE 89396 [facility] SUDHAKAR OUTPATIEN 5 5 PHYSICIAN ABHAY T VISIT S GROUP 25 MINUTES EMERGENCY 40113 BEL CARDOZOUGHN 5 5 PHYSICIAN [facility] S, PLL[facility] T VISIT HIGH/URGE NT SEVERITY OFFICE 28418 [facility] SUDHAKAR OUTPATIEN 5 5 PHYSICIAN ABHAY T VISIT S GROUP 10 MINUTES OFFICE 23702 [facility] SUDHAKAR OUTPATIEN 5 5 PHYSICIAN ABHAY T VISIT S GROUP 15 MINUTES HOSPITAL LIZ - 5 5 [facility] OUTPATIEN INC T OFFICE 75205 [facility] SUDHAKAR OUTPATIEN 5 5 PHYSICIAN ABHAY T VISIT S GROUP 15 MINUTES HOSPITAL LIZ - 5 5 [facility] OUTPATIEN INC T EMERGENCY 65612 LIZ BETHEA WARREN 5 5 [facility] T VISIT P LOW/MODER SEVERITY OFFICE 94580 [facility] SUDHAKAR OUTPATIEN 5 5 PHYSICIAN ABHAY T VISIT S GROUP 10 MINUTES OFFICE 15804 [facility] PETTEY OUTPATIEN 5 5 PHYSICIAN JAM T VISIT S GROUP 25 MINUTES OFFICE 05579 [facility] SUDHAKAR OUTPATIEN 5 5 PHYSICIAN ABHAY T VISIT S GROUP 15 MINUTES OFFICE 32873 [facility] SUDHAKAR OUTPATIEN 5 5 PHYSICIAN ABHAY T NEW 20 S GROUP MINUTES OFFICE 87312 A C KILPELA OUTPATIEN 4 4 [place]RAY[place] LAWSON JEJanett T VISIT PSC 15 MINUTES OFFICE 81804 A C KILPELA OUTPATIEN 4 4 [place] FAROOQ T VISIT PSC 15 MINUTES Emergency DALE Gaines (ER) 4 17:56 4 19:14 [facility] Juan Garcia Emergency DALE Clark MD (ER) 3 15:45 3 18:22 [facility] OFFICE 38941 PETERSON PEGUERO 3 3 DWI DWI T VISIT 15 MINUTES Emergency DALE FELIZ MD (ER) 3 16:17 3 18:26 [facility] EMERGENCY 38090 TRAY FELIZ DEPT 3 3 [facility] VISIT HIGH SEVERITY& THREAT [facility] EMERGENCY 71898 LIZ 3 3 [facility] DEPARTMEN INC T VISIT HIGH/URGE NT SEVERITY HOSPITAL LIZ - 3 3 [facility] OUTPATIEN INC T Emergency DALE Carter MD (ER) 3 18:34 3 19:21 [facility] EMERGENCY 50958 [facility] 3 3 DEPARTMEN T VISIT MODERATE SEVERITY EMERGENCY 98984 LIZ 3 3 [facility] DEPARTMEN INC T VISIT LOW/MODER SEVERITY HOSPITAL LIZ - 3 3 [facility] OUTPATIEN INC T Emergency DALE HARTMAN MD (ER) 3 16:41 3 17:29 [facility] EMERGENCY 35177 DAVID Grande 3 3 EMERGENCY DEPARTMEN SERVICES T VISIT MODERATE SEVERITY Emergency DALE Ibarra MD (ER) 3 21:06 3 21:53 [facility] EMERGENCY 34948 SUDHAKAR IBARRA 3 3 ABHAY ABHAY DEPARTMEN T VISIT MODERATE SEVERITY HOSPITAL LIZ - 3 3 [facility] OUTPATIEN INC T EMERGENCY 59517 LIZ 3 3 [facility] DEPARTMEN INC T VISIT LOW/MODER SEVERITY OFFICE 89097 PETERSON PEGUERO 3 3 DWI DWI T VISIT 15 MINUTES EMERGENCY 56379 LIZ 3 3 [facility] DEPARTMEN INC T VISIT MODERATE SEVERITY EMERGENCY 38037 LIANA GAINES 3 3 III DERRICK III DERRICK DEPARTMEN T VISIT HIGH/URGE NT SEVERITY HOSPITAL LIZ - [address] [facility] OUTPATIEN INC T EMERGENCY 75454 LIANA GAINES DEPT 2 2 III DERRICK III DERRICK VISIT HIGH SEVERITY& THREAT [facility] EMERGENCY 81429 DAVID HOBSON 2 2 EMERGENCY [facility] T VISIT MODERATE SEVERITY EMERGENCY 05180 DAVID GÓMEZ 2 2 EMERGENCY DEPARTMEN SERVICES T VISIT HIGH/URGE NT SEVERITY EMERGENCY 88972 LIANA GAINES 2 2 [facility] H[facility]GE [facility]ITY [facility] LIZ - 2 2 [facility] OUTPATIEN INC T EMERGENCY [address] LI[facility] [address] [facility] DEPARTMEN INC T VISIT LOW/MODER SEVERITY OFFICE 96148 MAMIE MORRIS OUTPATIEN 2 2 T NEW 20 MINUTES HOSPITAL LIZ - [address] [facility] OUTPATIEN INC T OFFICE 82328 PETERSON WINKLER JR OUTPATIEN 2 2 DWI DWI T VISIT 15 MINUTES EMERGENCY 47766 LIANA GAINES 2 2 III DERRICK III DERRICK DEPARTMEN T VISIT HIGH/URGE NT SEVERITY HOSPITAL LIZ - 2 2 [facility] OUTPATIEN INC T OFFICE 43470 PETTEY PETTEY OUTPATIEN 2 2 JAM JAM T VISIT 15 MINUTES HOSPITAL LIZ - 2 2 [facility] OUTPATIEN INC T OFFICE 24330 PETTEY PETTEY OUTPATIEN 2 2 JAM JAM T VISIT 15 MINUTES HOSPITAL LIZ - 2 2 [facility] OUTPATIEN INC T OFFICE 09251 PETTEY PETTEY OUTPATIEN 2 2 JAM JAM T VISIT 15 MINUTES OFFICE 26877 PETERSON JR PETERSON JR OUTPATIEN 2 2 DWI DWI T VISIT 15 MINUTES OFFICE 69381 PETERSON JR PETERSON JR OUTPATIEN 2 2 DWI DWI T VISIT 15 MINUTES OFFICE 92764 PETERSON JR PETERSON JR OUTPATIEN 2 2 DWI DWI T VISIT 15 MINUTES OFFICE 35383 PETERSON DWI PETERSON DWI OUTPATIEN 2 2 T VISIT 15 MINUTES OFFICE 79264 PETERSON JR PETERSON JR OUTPATIEN 2 2 DWI DWI T VISIT 15 MINUTES HOSPITAL LIZ - [address] [facility] OUTPATIEN INC T EMERGENCY 32516 HERNANDEZ KEYUR HERNANDEZ KEYUR 1 1 DEPARTMEN T VISIT MODERATE SEVERITY EMERGENCY [address] [facility] DEPARTMEN INC T VISIT LOW/MODER SEVERITY OFFICE 39630 PETERSON DWI PETERSON DWI OUTPATIEN 1 1 T VISIT 15 MINUTES EMERGENCY 35036 LIANA GAINES 1 1 III DERRICK III DERRICK DEPARTMEN T VISIT HIGH/URGE NT SEVERITY HOSPITAL LIZ - [address] [facility] OUTPATIEN INC T EMERGENCY [address] [facility] [facility] DEPARTMEN INC T VISIT LIMITED/M INOR PROB OFFICE 72113 PETTEY PETTEY OUTPATIEN 1 1 JAM JAM T NEW 30 MINUTES OFFICE 28687 PETERSON JR PETERSON JR OUTPATIEN 1 1 DWI DWI T VISIT 15 MINUTES EMERGENCY [address] [facility] DEPARTMEN INC T VISIT LOW/MODER SEVERITY EMERGENCY 56434 HERNANDEZ KEYUR HERNANDEZ KEYUR 1 1 DEPARTMEN T VISIT HIGH/URGE NT SEVERITY HOSPITAL LIZ - [address] [facility] OUTPATIEN [facility] T OFFICE [id number] PETERSON WINKLER JR OUTPATIEN 1 1 DWI DWI T VISIT 15 MINUTES EMERGENCY [id number] [facility] T [facility]IT LIMITED/M INOR PROB HOSPITAL LIZ - [address] [facility] OUTPATIEN [facility] T EMERGENCY 31871 DAVID GAINES 1 1 EMERGENCY III [facility] T VISIT MODERATE SEVERITY OFFICE 03440 ELFEGO TELLES OUTPATIEN 1 1 KEYUR KEYUR T NEW 10 MINUTES HOSPITAL LIZ - [address] [facility]ERGENCY [address] [facility] T VISIT LOW/MODER SEVERITY EMERGENCY 63109 DAVID COOLEY 1 1 EMERGENCY [facility] SERVICES T VISIT HIGH/URGE NT SEVERITY EMERGENCY [address] [facility] T VISIT LOW[facility]MODER SEVERITY HOSPITAL LIZ - [address] [facility]EN [facility] LIZ - [address] [facility] T EMERGENCY [address] [facility] T VISIT LIMITED/M INOR PROB EMERGENCY [address] [facility] T VISIT LOW/MODER SEVERITY HOSPITAL LIZ - [address] [facility] OUTPATIEN [facility] T EMERGENCY [address] [facility] T VISIT LIMITED/M INOR PROB EMERGENCY 96563 DAVID GAINES 1 1 EMERGENCY III [facility] T VISIT MODERATE SEVERITY HOSPITAL LIZ - [address] [facility]IEN [facility] T OFFICE [id number] PETERSON PETERSON DWI OUTPATIEN 1 1 [facility] T VISIT 15 MINUTES HOSPITAL LIZ - 1 1 [facility] OUT[facility] INC T EMERGENCY 59883 LIZ 1 1 [facility] DEPARTMEN INC T VISIT LOW/MODER SEVERITY EMERGENCY 42552 DAVID GAINES 1 1 [facility] HIGH/URGE NT SEVERITY OFFICE 06418 [facility] OUTPATI[facility] 1 1 PHYSICIAN KALEE T VISIT GROUP 15 PCC MINUTES EMERGENCY 41471 DAVID OLIVARES 1 1 EMERGENCY DEPARTMEN SERVICES T VISIT HIGH/URGE NT SEVERITY EMERGENCY [address] [facility] INC T VISIT MODERATE SEVERITY HOSPITAL LIZ - [address] [facility] OUTPATIEN INC T OFFICE 31478 [facility] OUTPATIEN 1 1 PHYSICIAN KALEE T VISIT GROUP 15 PCC MINUTES EMERGENCY 38120 DAVID GAINES 1 1 EMERGENCY III [facility] T VISIT HIGH/URGE NT SEVERITY EMERGENCY [address] [facility] DEPARTMEN INC T VISIT LOW/MODER SEVERITY HOSPITAL LIZ - [address] [facility] OUTPATIEN INC T EMERGENCY 65541 DAVID IBARRA 1 [facility] H[facility]URGE NT SEVERITY [facility] LIZ - 1 1 [facility] OUT[facility] INC T EMERGENCY [address] [facility] DEPARTMEN INC T VISIT LIMITED/M INOR PROB HOSPITAL LIZ - 1 1 [facility] OUTPATI[facility] INC T EMERGENCY 52963 DAVID BAER 1 1 EMERGENCY DEPARTMEN SERVICES T VISIT HIGH/URGE NT SEVERITY EMERGENCY 16478 LIZ 1 1 [facility] DEPART[facility] INC T VISIT LOW/MODER SEVERITY EMERGENCY 02962 [place] 1 1 [facility] T VISIT LOW/MODER SEVERITY HOSPITAL [place] [facility] [facility]ERGENC[facility] 29591 DAVID MAYO 1 1 EMERGENCY DEPARTMEN SERVICES T VISIT MODERATE SEVERITY HOSPITAL LIZ - [address] [facility] T EMERGENCY 53057 DAVID OLIVARES 1 1 EMERGENCY DEPARTMEN SERVICES T VISIT MODERATE SEVERITY OFFICE 90521 PETERSON PETERSON [facility] 1 1 [place] T VISIT 15 MINUTES EMERGENCY 13686 DAVID HERNANDEZ KEYUR 1 1 EMERGENCY DEPARTMEN SERVICES T VISIT HIGH/URGE NT SEVERITY EMERGENCY [address] [facility] INC T VISIT LOW/MODER SEVERITY [facility]OSPITAL LIZ - [address] [facility] T HOSPITAL LIZ - [address] [facility]EN [facility] T EMERGENCY [address] LI[address] [facility] DEPARTMEN INC T VISIT MODERATE SEVERITY EMERGENCY 32508 DAVID MANZANO 1 1 EMERGENCY [facility] DEPARTMEN SERVICES T VISIT HIGH/URGE NT SEVERITY EMERGENCY 71908 DAVID IBARRA 1 1 EMERGENCY [facility] DEPARTMEN SERVICES T VISIT HIGH/URGE NT SEVERITY EMERGENCY [address] LIZ [address] [facility] INC T VISIT LOW/MODER SEVERITY [facility]OSPITAL LIZ - [address] [facility] INC T EMERGENCY 37178 DAVID HERNANDEZ KEYUR 1 1 EMERGENCY DEPARTMEN SERVICES T VISIT MODERATE SEVERITY [facility]OSPITAL LIZ - [address] [facility] INC T EMERGENCY [address] [facility] DEPARTMEN INC T VISIT LOW/MODER SEVERITY OFFICE 02035 [facility] 1 1 [place] T VISIT 15 MINUTES OFFICE 15112 [facility] 1 1 [place] T VISIT 15 MINUTES EMERGENCY [address] [facility] [address] [facility] DEPART[facility] INC T VISIT MODERATE SEVERITY EMERGENCY 15948 DAVID IBARRA 1 1 EMERGENCY [facility] DEPARTMEN SERVICES T VISIT HIGH/URGE NT SEVERITY HOSPITAL LIZ - [address] [facility] INC T EMERGENCY 39021 DAVID GAINES 1 1 [facility] HIGH/URGE NT SEVERITY EMERGENCY [address] [facility] DEPARTMEN INC T VISIT MODERATE SEVERITY HOSPITAL LIZ - [address] [facility] T EMERGENCY 79561 DAVID BAER 1 1 EMERGENCY [facility] SERVICES T VISIT HIGH/URGE NT SEVERITY EMERGENCY [address] [facility] DEPART[facility] INC T VISIT MODERATE SEVERITY HOSPITAL LIZ - [address] [facility] INC T OFFICE 12922 [facility] OUTPATIEN 1 1 [place] T VISIT 15 MINUTES EMERGENCY 22555 DAVID OLIVARES 1 1 EMERGENCY [facility] SERVICES T VISIT MODERATE SEVERITY EMERGENCY [address] [facility] DEPARTMEN INC T VISIT LOW/MODER SEVERITY HOSPITAL LIZ - [address] [facility] T OFFICE 25862 LIZ JADE OUTPATIEN 1 1 [facility] T VISIT HOSPITAL 25 P MINUTES EMERGENCY 32389 [place] 1 1 [facility] T VISIT MODERATE SEVERITY HOSPITAL [place] - 1 1 [facility] T EMERGENCY 69134 DAVID IBARRA 1 1 EMERGENCY [facility] DEPARTMEN SERVICES T VISIT HIGH/URGE NT SEVERITY HOSPITAL LIZ - [address] [facility] INC T EMERGENCY 41018 [facility]OW/MODER SEVERITY OFFICE 19018 PET[facility] WINKLER [facility] OUTPATIEN 1 1 [place] T VISIT 15 MINUTES HOSPITAL LIZ - [address] [facility] INC T OFFICE 30014 [facility] OUTPATIEN 1 1 [place] T VISIT 15 MINUTES OFFICE 66507 AMARILIS BROWNCHAN OUTPATIEN 1 1 MARIANA MARIANA T VISIT 15 MINUTES OFFICE 83711 Janett Rowland OUTPATIEN 1 1 [place] LWASON T VISIT PSC 15 MINUTES EMERGENCY 00722 DAVID GAINES 1 1 EMERGENCY III [facility] DEPARTMEN SERVICES T VISIT HIGH/URGE NT SEVERITY EMERGENCY 88366 LIZ 1 1 [facility] T VISIT LOW/MODER SEVERITY HOSPITAL LIZ - [address] [facility] T OFFICE 75937 PETERSON WINKL[facility] OUTPATIEN 1 1 [place] T VISIT 15 MINUTES OFFICE 70182 [facility] 1 1 IMPLANT & III VINICIO T NEW 20 ORAL MINUTES SURGERY C EMERGENCY 69252 DAVID OLIVARES 1 1 EMERGENCY DEPARTMEN SERVICES T VISIT HIGH/URGE NT SEVERITY EMERGENCY 16761 [facility] 1 [facility] SE[facility] LIZ - [address] [facility] T OFFICE 77677 PETERSON WINKLER [facility] OUTPATIEN 1 1 [place] T VISIT 15 MINUTES OFFICE 87203 [facility]N CONSULTAT 1 1 NEUROLOGY [facility] NEW/ESTAB KARISHMA PATIENT 80 MIN OFFICE 71273 PETERSON WINKLER [facility] OUTPATIEN 1 1 [place] T VISIT 15 MINUTES HOSPITAL LIZ - 1 1 [facility] T OFFICE 32923 PETERSON WINKLER DWI OUTPATIEN 1 1 [place] T VISIT 15 MINUTES OFFICE 31528 [facility] OUTPATIEN 1 1 PHYSICIAN KALEE T VISIT GROUP 15 PCC MINUTES EMERGENCY 76192 LIZ 1 1 [facility] DEPARTMEN INC T VISIT MODERATE SEVERITY HOSPITAL LIZ - 1 1 [facility] INC T EMERGENCY 42848 DAVID HERNANDEZ KEYUR 1 1 EMERGENCY DEPARTMEN SERVICES T VISIT HIGH/URGE NT SEVERITY OFFICE 26207 LIZ [place] OUTPATIEN 1 1 [facility] T VISIT 5 CENTER CENTER MINUTES HOSPITAL LIZ - 1 1 [facility] INC T OFFICE 22329 [facility] OUTPATIEN 1 1 PHYSICIAN KALEE T VISIT GROUP 15 PCC MINUTES OFFICE 32367 [facility] OUTPATIEN 1 1 [facility] T NEW 10 CENTER CENTER MINUTES OFFICE 98719 PETERSON WINKLER DWI OUTPATIEN 1 1 [place] T VISIT 25 MINUTES EMERGENCY 32097 DAVID CARTER BAB 1 1 EMERGENCY DEPARTMEN SERVICES T VISIT HIGH/URGE NT SEVERITY HOSPITAL LIZ - 1 1 [facility] INC T EMERGENCY 74560 LIZ 1 1 [facility] DEPARTMEN INC T VISIT LOW/MODER SEVERITY OFFICE 20460 [facility] WINKL[facility] OUTPATIEN 1 1 [place] T VISIT 15 MINUTES HOSPITAL LIZ - 1 1 [facility] INC T OFFICE 41957 [facility] OUTPATIEN 0 0 PHYSICIAN KALEE T VISIT GROUP 15 PCC MINUTES OFFICE 77240 PET[facility] WINKLER DWI OUTPATIEN 0 0 [place] T VISIT 15 MINUTES OFFICE 68710 PETERSON WINKLER DWI OUTPATIEN 0 0 [place] T VISIT 15 MINUTES OFFICE 93984 PETERSON WINKLER DWI OUTPATIEN 0 0 [place] T VISIT 15 MINUTES OFFICE 78625 PETERSON WINKLER DWI OUTPATIEN 0 0 [place] T VISIT 15 MINUTES HOSPITAL LIZ - [address] [facility] T EMERGENCY 77120 DAVID CARTER BAB 0 0 EMERGENCY DEPARTMEN SERVICES T VISIT HIGH/URGE NT SEVERITY HOSPITAL LIZ - [address] [facility] INC T EMERGENCY 10723 LIZ 0 0 [facility] DEPARTMEN INC T VISIT LOW/MODER SEVERITY OFFICE 09500 A Symone OWEN A OUTPATIEN 0 0 [facility] LAWSON T VISIT PSC 15 MINUTES EMERGENCY [address] [facility] DEPARTMEN INC T VISIT LIMITED/M [facility] LIZ - [address] [facility] INC T OFFICE 56100 PETERSON WINKLER DWI OUTPATIEN 0 0 [place] T VISIT 15 MINUTES EMERGENCY 72651 DAVID SCHULTZ AND 0 0 EMERGENCY DEPARTMEN SERVICES T VISIT HIGH/URGE NT SEVERITY OFFICE 81607 PETERSON WINKLER DWI OUTPATIEN 0 0 [place] T VISIT 15 MINUTES OFFICE 01938 A Symone OWEN A OUTPATIEN 0 0 [place] LAWSON T VISIT PSC 15 MINUTES OFFICE 93248 PETERSON WINKLER DWI OUTPATIEN 0 0 [place] T VISIT 15 MINUTES OFFICE 05734 [facility] HARCOLIN OUTPATIEN 0 0 PHYSICIAN KALEE T VISIT GROUP 15 PCC MINUTES OFFICE 22806 Janett FRAZIER OUTPATIEN 0 0 [place] PEÑA T VISIT PSC 15 MINUTES OFFICE 57352 MARIELENA ANTONIO 0 0 M[place]IS MORRIS E T VISIT EMD 15 MINUTES OFFICE 37604 LINDSAY MONTOYA OUTPATIEN 0 0 SILVIA A SILVIA A T VISIT 15 MINUTES OFFICE 76539 MARIELENA ANTONIO 0 0 [place] MORRIS E T VISIT EMD 15 MINUTES EMERGENCY 95611 LIZ 0 0 [facility] DEPARTMEN INC T VISIT LIMITED/M INOR PROB EMERGENCY 10991 DAVID CARTER, 0 0 EMERGENCY [facility] DEPARTMEN SERVICES O T VISIT HIGH/URGE ASSOCIATE NT S SEVERITY HOSPITAL LIZ - 0 0 [facility] OUTPATIEN INC T OFFICE 07750 LINDSAY MONTOYA OUTPATIEN 0 0 SILVIA A SILVIA A T VISIT 15 MINUTES OFFICE 31017 MARIELENA ANTONIO 0 0 [facility] MORRIS E T VISIT EMD 15 MINUTES HOSPITAL LIZ - 0 0 [facility] OUTPATIEN INC T EMERGENCY 06328 LIZ 0 0 [facility] DEPARTMEN INC T VISIT LOW/MODER SEVERITY EMERGENCY 50040 DAVID IBARRA, 0 0 EMERGENCY AUDREY S DEPARTMEN SERVICES T VISIT HIGH/URGE ASSOCIATE NT S SEVERITY EMERGENCY 88233 DAVID GAINES 0 0 EMERGENCY III, DEPARTMEN SERVICES JUAN T VISIT HIGH/URGE ASSOCIATE NT S SEVERITY HOSPITAL LIZ - 0 0 [facility] T OFFICE 17292 LINDSAY MONTOYA OUTPATIEN 0 0 SILVIA A SILVIA A T VISIT 15 MINUTES EMERGENCY 88279 LIZ 0 0 [facility] DEPARTMEN INC T VISIT LOW/MODER SEVERITY OFFICE 47466 MARIELENA ANTONIO 0 0 [facility] MORRIS E T VISIT EMD 15 MINUTES HOSPITAL LIZ - 0 0 [facility] OUTPATIEN INC T EMERGENCY 22568 DAVID CARTER, 0 0 EMERGENCY [place] DEPARTMEN SERVICES O T VISIT HIGH/URGE ASSOCIATE NT S SEVERITY EMERGENCY 98191 LIZ 0 0 [facility] DEPARTMEN INC T VISIT LIMITED/M INOR PROB OFFICE 48780 MARIELENA ANTONIO 0 0 M[facility] MORRIS E T VISIT EMD 15 MINUTES HOSPITAL LIZ - 0 0 [facility] OUTPATIEN INC T OFFICE 85210 MARIELENA ANTONIO 0 0 [place] MORRIS E T VISIT EMD 15 MINUTES OFFICE 52885 [facility] 0 0 PHYSICIAN KALEE T VISIT GROUP 15 PCC MINUTES OFFICE 18743 MARIELENA ANTONIO 0 0 [place] MORRIS E T VISIT EMD 15 MINUTES OFFICE 82466 MARIELENA ANTONIO 0 0 [facility] MORRIS E T VISIT EMD 15 MINUTES HOSPITAL LIZ - 0 0 [facility] OUTPATIEN INC T EMERGENCY 40258 DAVID GAINES 0 0 EMERGENCY III, DEPARTMEN SERVICES JUAN T VISIT HIGH/URGE ASSOCIATE NT S SEVERITY EMERGENCY 76423 LIZ 0 0 [facility] DEPARTMEN INC T VISIT LIMITED/M INOR PROB OFFICE 56054 Janett RAO OUTPATIEN 0 0 [place] Ashby T VISIT PSC 15 MINUTES OFFICE 89238 LINDSAY MONTOYA OUTPATIEN 0 0 SILVIA Rowland T VISIT 15 MINUTES EMERGENCY 96324 DAVID IBARRA, 0 0 EMERGENCY AUDREY S DEPARTMEN SERVICES T VISIT HIGH/URGE ASSOCIATE NT S SEVERITY HOSPITAL LIZ - 0 0 [facility] OUTPATIEN INC T EMERGENCY 86950 LIZ 0 0 [facility] DEPARTMEN INC T VISIT LIMITED/M INOR PROB OFFICE 66770 Janett RAO OUTPATIEN 0 0 [place] Ashby T VISIT PSC 15 MINUTES OFFICE 73433 [facility] MARIUM OUTPATIEN 0 0 PHYSICIAN KALEE T VISIT GROUP 15 PCC MINUTES HOSPITAL LIZ - 0 0 [facility] OUTPATIEN INC T EMERGENCY 64704 DAVID CARTER, 0 0 EMERGENCY [place] DEPARTMEN SERVICES O T VISIT MODERATE ASSOCIATE SEVERITY S EMERGENCY 39857 LIZ 0 0 [facility] DEPARTMEN INC T VISIT LIMITED/M [facility]OR [facility] [address] [facility] PHYSICIAN KAL[facility] T VISIT GROUP 15 PCC MINUTES HOSPITAL LIZ - 0 0 [facility] OUTPATIEN INC T OFFICE 63121 MARIELENA ANTONIO 0 0 M[facility]IS MORRIS E T VISIT EMD 15 MINUTES HOSPITAL LIZ - 0 0 [facility] OUTPATIEN INC T OFFICE 27199 MARIELENA ANTONIO 0 0 [facility] MORRIS E T VISIT EMD 15 MINUTES HOSPITAL LIZ - 0 0 [facility]PATIEN INC T [facility] LIZ - 0 0 [facility]PATIEN INC T [facility]PITAL LIZ - 0 0 [facility] OUTPATIEN INC T EMERGENCY 83656 LIZ 0 0 [facility] DEPARTMEN INC T VISIT LOW/MODER SEVERITY EMERGENCY 08351 DAVID IBARRA, 0 0 EMERGENCY [facility] DEPARTMEN SERVICES T VISIT HIGH/URGE ASSOCIATE NT S SEVERITY OFFICE 22642 [facility] MARIUM HOUSEPATIEN 0 0 PHYSICIAN KALEE T VISIT GROUP 15 PCC MINUTES HOSPITAL LIZ - 0 0 [facility] OUTPATIEN INC T OFFICE 44067 MARIELENA ANTONIO 0 0 [place] MORRIS E T VISIT EMD 15 MINUTES OFFICE 34474 MOUNA ANTONIOEN 0 0 [place] MORRIS E T VISIT EMD 15 MINUTES HOSPITAL LIZ - 0 0 [facility] OUTPATIEN INC T [facility]PITAL LIZ - 0 0 [facility] OUTPATIEN INC T OFFICE 17717 [facility] MARIUM OUTPATIEN 0 0 PHYSICIAN KALEE T VISIT GROUP 15 PCC MINUTES EMERGENCY 26402 LIZ 0 0 [facility] DEPARTMEN INC T VISIT LIMITED/M INOR [facility] LIZ - 0 0 [facility] OUTPATIEN INC T EMERGENCY 33237 DAVID CARTER, 0 0 EMERGENCY [place] DEPARTMEN SERVICES O T VISIT HIGH/URGE ASSOCIATE NT S SEVERITY OFFICE 71323 MARIELENA ANTONIO 0 0 M[facility]IS MORRIS E T VISIT EMD 15 MINUTES HOSPITAL LIZ - 0 0 [facility] OUTPATIEN INC [facility] LIZ - 0 0 [facility] OUTPATIEN INC T OFFICE 49874 MARIELENA ANTONIO 0 0 M[place]IS MORRIS E T VISIT EMD 15 MINUTES EMERGENCY 59464 DAVID IBARRA DEPT 0 0 EMERGENCY [facility] VISIT SERVICES HIGH SEVERITY& ASSOCIATE THREAT S [facility] LIZ - 0 0 [facility] OUTPATIEN INC T EMERGENCY 17611 LIZ 0 0 [facility] DEPARTMEN INC T VISIT LOW/MODER SEVERITY OFFICE 55843 MARIELENA ANTONIO 9 9 MORRIS MORRIS E T VISIT EMD 15 MINUTES EMERGENCY 98813 DAVID GAINES 9 9 EMERGENCY [facility], DEPARTMEN SERVICES JUAN T VISIT HIGH/URGE ASSOCIATE NT S SEVERITY EMERGENCY 76464 LIZ 9 9 [facility] DEPARTMEN INC T VISIT LIMITED/M INOR PROB [facility]OSPITAL LIZ - 9 9 [facility] OUTPATIEN INC T EMERGENCY 24325 DAVID KERN 9 9 EMERGENCY , [facility] DEPARTMEN SERVICES T VISIT MODERATE ASSOCIATE SEVERITY S OFFICE 69649 MARIELENA ANTONIO 9 9 [place] MORRIS E T VISIT EMD 15 MINUTES EMERGENCY 60162 DAVID IBARRA, 9 9 [facility]ISIT MODERATE ASSOCIATE SEVERITY S HOSPITAL LIZ - 9 9 [facility] OUTPATIEN INC T EMERGENCY 87352 LIZ 9 9 [facility] DEPARTMEN INC T VISIT LOW/MODER SEVERITY EMERGENCY 83547 DAVID CARTER, 9 9 EMERGENCY [place] DEPARTMEN SERVICES O T VISIT HIGH/URGE ASSOCIATE NT S SEVERITY HOSPITAL LIZ - 9 9 [facility] OUTPATIEN INC T EMERGENCY 81104 LIZ 9 9 [facility] DEPARTMEN INC T VISIT LIMITED/M INOR PROB OFFICE 87149 MARIELENA ANTONIO 9 9 [facility] MORRIS E T VISIT EMD 15 MINUTES HOSPITAL LIZ - 9 9 [facility] OUTPATIEN INC T EMERGENCY 61167 DAVID IBARRA, 9 9 EMERGENCY [facility] DEPARTMEN SERVICES T VISIT HIGH/URGE ASSOCIATE NT S SEVERITY EMERGENCY 02423 LIZ 9 9 [facility] DEPARTMEN INC T VISIT LIMITED/M INOR PROB OFFICE 21430 FAMILY WILSONMARIELENA 9 9 MARCELLUS CHAVARRIA T VISIT ASSOCIATE 15 S MINUTES OFFICE 97702 MARIELENA ANTONIO 9 9 M[place]IS MORRIS E T NEW 45 EMD MINUTES EMERGENCY 52244 DAVDI MARCUS 9 9 EMERGENCY [place] DEPARTMEN SERVICES T VISIT MODERATE ASSOCIATE SEVERITY S EMERGENCY 46155 LIZ 9 9 [facility] DEPARTMEN INC T VISIT LIMITED/M INOR PROB [facility]OSPITAL LIZ - 9 9 [facility] OUTPATIEN INC T OFFICE 55739 Janett RAOPATIKAITLIN 9 9 [place] Ashby T VISIT PSC 15 MINUTES OFFICE 11443 JOSE ANTONIO BRADY OUTPATIEN 9 9 [facility] T VISIT 40 MINUTES EMERGENCY 33937 DAVID CARTER, 9 9 EMERGENCY [place] DEPARTMEN SERVICES O T VISIT MODERATE ASSOCIATE SEVERITY S HOSPITAL LIZ - 9 9 [facility] OUTPATIEN INC T EMERGENCY 91891 LIZ 9 9 [facility] DEPARTMEN INC T VISIT LIMITED/M INOR PROB HOSPITAL LIZ - 9 9 [facility] T [facility]ERGENC[facility] 78226 [facility] T VISIT PHYS INC MODERATE SEVERITY [facility]OSPITAL LIZ - 9 9 [facility] OUTPATIEN INC T EMERGENCY 86548 LIZ 9 9 [facility] DEPARTMEN INC T VISIT LOW/MODER SEVERITY HOSPITAL LIZ [facility] 9 9 [facility]PAT[facility] T [facility] LIZ - 9 9 [facility] INC T EMERGENCY [address] [facility] T VISIT LOW/MODER SEVERITY EMERGENCY [address] [facility] [address] [facility] T VISIT LIMITED/M INOR [facility] LIZ - [address] [facility] 00209 LINDSAY MONTOYA OUTPATIEN 9 9 SILVIA Rowland T VISIT 15 MINUTES
--- OUTSIDE RECORDS SUMMARY | 2017-03-22 22:02 | External Medical Summary Rpt ---
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 [facility] INC INC [place] [address] [facility] TROPONIN 7 [facility] QUANTITAT INC INC RADHIKA BLOOD 19398 [facility] COUNT 7 [facility] COMPLETE INC INC AUTO&AUTO DIFRNTL WBC URNLS DIP 55966 [facility] 7 [facility] STICK/TAB INC INC LET REAGENT AUTO MICROSCOP Y RADIOLOGI 63152 [facility] C EXAM 7 [facility] CHEST 2 INC INC VIEWS FRONTAL&L ATERAL ECG 89955 [facility] QU[facility]O ROUTINE 7 [facility] W/LEAST P 12 LDS I&R ONLY FIBRIN 50878 [facility] DGRADJ 7 [facility] PRODUCTS INC INC D-DIMER QUAL/SEMI ALIN CREATINE 45182 [facility] KINASE 7 [facility] TOTAL INC INC ECG 75923 [facility] ROUTINE 7 [facility] ECG INC INC W/LEAST 12 LDS TRCG ONLY W/O I&R THER 69482 [facility] PROPH/DX 7 [facility] NJX IV INC INC PUSH SINGLE/1S T SBST/DRUG COMPREHEN 05702 [facility] SIVE 7 [facility] METABOLIC INC INC PANEL DRUG TEST 14867 [facility] PRSMV 7 [facility] QUAL DIR INC INC OPTICAL OBS PER DAY CREATINE 66507 [facility] KINASE MB 7 [facility] FRACTION INC INC ONLY THERAPEUT 34704 [facility] IC 7 [facility] INJECTION INC INC IV PUSH EACH NEW DRUG COMPREHEN 91962 [facility] SIVE 7 [facility] METABOLIC INC INC PANEL THER 57148 [facility] PROPH/DX 7 [facility] NJX IV INC INC PUSH SINGLE/1S T SBST/DRUG ECG 04191 [facility] QUINTERO ROUTINE 7 [facility] W/LEAST P 12 LDS I&R ONLY ECG 77230 [facility] ROUTINE 7 [facility] ECG INC INC W/LEAST 12 LDS TRCG ONLY W/O I&R RHYTHM 12933 [facility] ECG 1-3 7 [facility] LEADS INC INC TRACING ONLY W/O I&R BLOOD 79483 [facility] COUNT 7 [facility] COMPLETE INC INC AUTO&[place] [address] [facility] TROPONIN 7 [facility] QUANTITAT INC INC RADHIKA RADIOLOGI 97868 [facility] C 7 [facility] EXAMINATI INC INC ON CHEST SINGLE VIEW FRONTAL DRUG TEST 60745 [facility] PRSMV 7 [facility] QUAL DIR INC INC OPTICAL OBS PER DAY RADIOLOGI 03216 [place] FARRELL ALL C 6 MEDICAL EXAMINATI IMAGING ON FOOT 2 ASS VIEWS INJECTION J1100 [facility] FRYMAN 6 PHYSICIAN EUG DEXAMETHO S GROUP SONE SODIUM PHOSPHATE 1 MG INJECTION J1885 [facility] FRYMAN 6 PHYSICIAN EUG KETOROLAC S GROUP TROMETHAM INE PER 15 MG THERAPEUT 06044 [facility] FRYMAN IC 6 PHYSICIAN EUG PROPHYLAC S GROUP TIC/DX INJECTION SUBQ/IM THERAPEUT 26845 [facility] SUDHAKAR IC 6 PHYSICIAN ABHAY PROPHYLAC S GROUP TIC/DX INJECTION SUBQ/IM INJECTION J0696 [facility] SUDHAKAR 6 PHYSICIAN ABHAY CEFTRIAXO S GROUP NE SODIUM PER 250 MG INJECTION J1040 [facility] SUDHAKAR 6 PHYSICIAN ABHAY METHYLPRE S GROUP DNISOLONE ACETATE 80 MG INJECTION J1040 [facility] SUDHAKAR 6 PHYSICIAN ABHAY METHYLPRE S GROUP DNISOLONE ACETATE 80 MG INJECTION J0696 [facility] SUDHAKAR 6 PHYSICIAN ABHAY CEFTRIAXO S GROUP NE SODIUM PER 250 MG THERAPEUT 16752 [facility] SUDHAKAR IC 6 PHYSICIAN ABHAY PROPHYLAC S GROUP TIC/[place]JE[place] SUBQ/[place] [address] [place] FARRE[facility] ALL TRACT UPR 6 MEDICAL W/SM INT IMAGING W/MULT ASS SERIAL IMAGES THERAPEUT 64313 [facility] SUDHAKAR IC 6 PHYSICIAN ABHAY PROPHYLAC S GROUP TIC/DX INJECTION SUBQ/IM INJECTION J0696 [facility] SUDHAKAR 6 PHYSICIAN ABHAY CEFTRIAXO S GROUP NE SODIUM PER 250 MG INJECTION J1040 [facility] SUDHAKAR 6 PHYSICIAN ABHAY METHYLPRE S GROUP DNISOL[place] [address] [place] [address] [place] [facility]IE ABDOMEN & 5 MEDICAL LI[facility]TE PELVIS IMAGING W/O ASS CONTRAST MATERIAL CULTURE 43661 [facility] BACTERIAL 5 [facility] INC INC QUANTTATI VE COLONY COUNT URINE URINLS 71430 [facility] DIP 5 [facility] LAWSON KALEE STICK/TAB LET REAGNT NON-AUTO MICRSCPY CULTURE 70121 [facility] CHLAMYDIA 5 [facility] LAWSON KALEE ANY SOURCE IADNA 33941 [facility] NEISSERIA 5 MARI[facility] LAWSON KALEE GONORRHOE AE DIRECT PROBE TQ THERAPEUT 81892 [facility] SUD[facility] IC 5 PHYSICIAN ABHAY PROPHYLAC S GROUP TIC/DX INJECTION SUBQ/IM INJECTION J0696 [facility] SUDHAKAR 5 PHYSICIAN ABHAY CEFTRIAXO S GROUP NE SODIUM PER 250 MG INJECTION J0696 [facility] SUDHAKAR 5 PHYSICIAN ABHAY CEFTRIAXO S GROUP NE SODIUM PER 250 MG THERAPEUT 34377 [facility] SUDH[facility]AR IC 5 PHYSICIAN ABHAY PROPHYLAC S GROUP TIC/DX INJECTION SUBQ/IM INJECTION J1040 [facility] SUDHAKAR 5 PHYSICIAN ABHAY METHYLPRE S GROUP DNISOLONE ACETATE 80 MG RADIOLOGI 86320 [place] BEINE C EXAM 5 MEDICAL NORMA CHEST 2 IMAGING VIEWS ASS FRONTAL&L ATERAL INJ J0702 [facility] PETTEY BETAMETHA 5 PHYSICIAN JAM SONE S GROUP ACETATE & PHOSPHATE 3 MG INJECTION 79469 [facility] PETTEY 1 TENDON 5 PHYSICIAN JAM S GROUP SHEATH/LI GAMENT APONEUROS IS RADEX 61102 [place] BE[facility] SPINE 5 MEDICAL NORMA THORACIC IMAGING 3 VIEWS ASS INJECTION J1885 [facility] SUDHAKAR 5 PHYSICIAN ABHAY KETOROLAC S GROUP TROMETHAM INE PER 15 MG THERAPEUT 20729 [facility] SUDHAKAR IC 5 PHYSICIAN ABHAY PROPHYLAC S GROUP TIC/DX INJECTION SUBQ/IM INJECTION J2550 [facility] SUDHAKAR 5 PHYSICIAN ABHAY PROMETHAZ S GROUP INE HCL UP TO 50 MG RADIOLOGI 56074 [place] MEL[facility] C EXAM 5 MEDICAL LIZZ[facility]TE KNEE IMAGING COMPLETE ASS 4/MORE VIEWS THERAPEUT 76002 [facility] IC 5 [facility] INJECTION INC INC IV PUSH EACH NEW DRUG INJECTION 78408 [facility] 1 TENDON 5 PHYSICIAN PHYSICIAN S GROUP S GROUP SHEATH/LI GAMENT APONEUROS IS INJ J0702 [facility] BETAM[facility] 5 PHYSICIAN JAM SONE S GROUP ACETATE & PHOSPHATE 3 MG IAADIADOO 18795 A Symone JONES 4 [facility] LAW[facility] JEJanett INFLUENZA PSC THERAPEUT 74640 A Symone JONES IC 4 [facility] LAW[facility] JEJanett PROPHYLAC PSC TIC/DX INJECTION SUBQ/IM INJECTION J1885 A Symone JONES 4 [facility] FAROOQ KETOROLAC PSC TROMETHAM INE PER 15 MG INJ J0702 A Symone JONES BETAMETHJanett 4 [facility] FAROOQ SONE PSC ACETATE & PHOSPHATE 3 MG BLOOD 28702 [facility] COUNT 3 [facility] COMPLETE INC INC AUTO&AUTO DIFRNTL WBC URNLS DIP 15195 [facility] 3 [facility] STICK/TAB INC [place] [address] [facility] ABDOMEN & 3 [facility] PELVIS INC INC W/O CONTRAST MATERIAL THER 33382 [facility] PROPH/DX 3 [facility] NJX IV INC INC PUSH SINGLE/1S T SBST/DRUG COMPREHEN 19530 [facility] SIVE 3 [facility] METABOLIC INC INC PANEL THERAPEUT 23681 LIZ LIZ IC 3 [facility] INJECTION INC INC IV PUSH EACH NEW DRUG RADEX 25491 [facility] SHOULDER 3 [facility] COMPLETE INC INC MINIMUM 2 VIEWS CUL BACT 46743 [facility] XCPT 3 [facility] URINE INC INC BLOOD/[place] [address] [facility] STREPTOCO 3 [facility] CCUS INC INC GROUP A THERAPEUT 92800 [facility] IC 3 [facility] PROPHYLAC INC INC TIC/DX INJECTION SUBQ/IM ECG 20852 LIANA GAINES ROUTINE 2 III DERRICK III DERRICK ECG W/LEAST 12 LDS I&R ONLY RADIOLOGI 89257 [place] [facility] C 2 MEDICAL LIZZ[facility]TE EXAMINATI IMAGING ON CHEST ASS SINGLE VIEW FRONTAL RADEX 91530 [place] MEL[facility] SHOULDER 2 MEDICAL LI[facility]TE COMPLETE IMAGING MINIMUM 2 ASS VIEWS RADIOLOGI 44383 [facility] C EXAM 2 MEDICAL LIZZETTE CHEST 2 IMAGING VIEWS ASS FRONTAL&L ATERAL RADIOLOGI 01304 [facility] C 2 MEDICAL LIZZETTE EXAMINATI IMAGING ON KNEE 3 ASS VIEWS BLOOD 15516 [facility] COUNT 2 [facility] COMPLETE INC INC AUTO&AUTO DIFRNTL WBC BASIC 63044 [facility] METABOLIC 2 [facility] PANEL INC INC CALCIUM TOTAL NEUROPLAS 18413 [facility] TY 2 [facility] &/TRANSPO INC INC S MEDIAN NRV CARPAL TUNNE ANES 17873 [facility] NERVE 2 ANESTH MUSCLE OF THE TDN BLUE FASCIA&[place] [address] [facility] INFUSION 2 [facility] THERAPY INC INC PROPHYLAX IS/DX EA HOUR THERAPEUT 78936 [facility] IC 2 [facility] INJECTION INC [place] [address] [facility] INFUSION 2 [facility] THERAPY/P INC INC ROPHYLAXI S /DX 1ST TO 1 [place] [address] [facility] INFUSION 2 [facility] THERAPY/P INC INC ROPHYLAXI S /DX 1ST TO 1 HR THERAPEUT 90172 [facility] IC 2 [facility] INJECTION [place] [address] [facility] INFUSION 2 [facility] THERAPY INC INC PROPHYLAX IS/DX EA HOUR ANES 55914 [facility] BRYCE NERVE 2 ANESTH MUSCLE OF THE TDN BLUE FASCIA&BU RSA FOREARM WRIST NEUROPLAS 41740 [facility] TY 2 [facility] &/TRANSPO INC INC S MEDIAN NRV CARPAL TUNNE BASIC 29003 [facility] METABOLIC 2 [facility] PANEL INC INC CALCIUM TOTAL BLOOD 97652 [facility] COUNT 2 [facility] COMPLETE INC INC AUTO&AUTO DIFRNTL WBC ORTHOPANT 07998 ELFEGO TELLES OGRAM 1 KEYUR KEYUR RADIOLOGI 11422 [place] C 1 MEDICAL LIZZ[facility]TE EXAMINATI IMAGING ON KNEE 3 ASS VIEWS RADEX 23066 [place] [facility] SHOULDER 1 MEDICAL LI[facility]TE COMPLETE IMAGING MINIMUM 2 ASS VIEWS RADEX 41998 [facility] SHOULDER 1 [facility] COMPLETE INC INC MINIMUM 2 VIEWS SLINGS A4565 [facility] 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 ASPIRATE IES IES INTERP & REPORT PUNCTURE 21228 [facility] ASPIRATIO 1 PHYSICIAN PHYSICIAN N CYST GROUP GROUP BREAST PCC PCC URNLS DIP 09218 [facility] 1 [facility] STICK/TAB INC INC LET REAGENT AUTO MICROSCOP Y INITIAL 59695 DAVID GAINES TX 1ST 1 EMERGENCY III DERRICK DEG[facility] SERVICES BURN LOCAL TX URNLS DIP 90026 LIZ JADE JR 1 [facility] STICK/[facility] LET RGNT P NON-AUTO W/O MICRSCP RADIOLOGI 61178 [facility] XIONGMELANIE C 1 MEDICAL LI[facility]TE EXAMINATI IMAGING ON KNEE 3 ASS VIEWS URNLS DIP 45469 [facility] 1 [facility] STICK/TAB INC [place] [address] [facility] XIONGMELANIE ABDOMEN & 1 MEDICAL LIZZ[facility]TE PELVIS IMAGING W/O ASS CONTRAST MATERIAL 3D 13968 [facility] RENDERING 1 MEDICAL LIZZETTE IMAGING W/INTERP& ASS POSTPROC DIFF WORK STATION RADIOLOGI 30216 [place] MEL[facility] C 1 MEDICAL LIZZ[place]TE EXAMINATI IMAGING ON PELVIS ASS 1/2 VIEWS URINLS 49707 A C OWEN A DIP 1 BRAYDEN LAWSON STICK/TAB PSC LET REAGNT NON-AUTO MICRSCPY RADEX 68036 [place] M[facility] SPINE 1 MEDICAL LIZZETTE LUMBOSACR IMAGING AL ASS MINIMUM 4 VIEWS RADEX 15690 [facility] SACRUM & 1 RADIOLOGY LD A COCCYX MINIMUM 2 VIEWS BONE 13706 [facility] LENGTH 1 RADIOLOGY LD A STUDIES OPHTH 61698 [facility] 1 VISION ANG XM&EVAL COMPRHNSV ESTAB PT 1/> URNLS DIP 08834 [facility] 1 [facility] STICK/TAB INC INC LET REAGENT AUTO MICROSCOP Y DIAGNOSTI G0204 [facility] MELANIE C 1 MEDICAL LIZZ[facility]TE MAMMOGRAP IMAGING HY INCL ASS CAD WHEN PERF; BILAT US BREAST 84269 [facility] XIONGMELANIE REAL 1 MEDICAL LIZZETTE TIME IMAGING W/IMAGE ASS DOCUMENTA TION SKIN TEST 27745 [facility] 1 [facility] SIS INTRADERM AL RADEX 84735 [place] MEL[facility]IE SPINE 1 MEDICAL LIZZ[facility]TE LUMBOSACR IMAGING AL ASS MINIMUM 4 VIEWS RADEX 96238 [place] [facility] SPINE 1 MEDICAL LIZZETTE LUMBOSACR IMAGING AL ASS MINIMUM 4 VIEWS RADEX 77026 [place] ABDOMEN 1 0 MEDICAL LIZZ[facility]TE IMAGING ANTEROPOS ASS TERIOR VIEW URNLS DIP 18600 [facility] 0 [facility] STICK/TAB INC INC LET REAGENT AUTO MICROSCOP Y RADIOLOGI 11779 [place] MEL[facility] C 0 MEDICAL LIZZETTE EXAMINATI IMAGING ON KNEE 3 ASS VIEWS URINLS 21781 A C KARIN DIP 0 BRAYDEN LAWSON MARIANA STICK/TAB PSC LET REAGNT NON-AUTO MICRSCPY CULTURE 65600 [facility] BCT 0 [facility] Socrative INC ISOL&PRSM PTV ID ISOLATE EA URINE CULTURE 48900 [facility] BACTERIAL 0 Socrative [facility] [employer] QUANTTATI VE COLONY COUNT URINE RADIOLOGI 11817 [place] Symone TAYLOR 0 MEDICAL GARO P EXAMINATI IMAGING ON KNEE 3 ASSOCIATE VIEWS S APPL 75780 [facility] MODALITY 0 [facility] 1/> AREAS INC INC IONTOPHOR ESIS EA 15 MIN THERAPEUT 87287 [facility] IC PX 1/> 0 [facility] AREAS INC INC EACH 15 MIN EXERCISES APPL 97600 [facility] MODALITY 0 [facility] 1/> AREAS INC INC ELEC STIMJ UNATTENDE D APPLICATI 09300 [facility] ON 0 [facility] MODALITY INC INC 1/> AREAS HOT/COLD PACKS APPL 21592 [facility] MODALITY 0 [facility] 1/> AREAS INC INC ULTRASOUN D EA 15 MIN APPL 48985 [facility] MODALITY 0 [facility] 1/> AREAS INC INC ULTRASOUN D EA 15 MIN APPL 99869 [facility] MODALITY 0 [facility] 1/> AREAS INC INC ELEC STIMJ UNATTENDE D APPL 34614 [facility] MODALITY 0 [facility] 1/> AREAS INC INC IONTOPHOR ESIS EA 15 MIN APPLICATI 44608 [facility] ON 0 [facility] MODALITY INC INC 1/> AREAS HOT/COLD PACKS PHYSICAL 93385 [facility] THERAPY 0 [facility] EVALUATIO INC INC N URINLS 71271 Janett RAO DIP 0 BRAYDEN Ashby STICK/TAB PSC LET REAGNT NON-AUTO MICRSCPY CUL BACT 22311 [facility] XCPT 0 [facility] URINE INC INC BLOOD/STO OL AEROBIC ISOL CUL BACT 76473 [facility] AEROBIC 0 [facility] ADDL INC INC METHS DEFINITIV E EA ISOL SUSCEPTIB 97671 [facility] LTY STDY 0 [facility] ANTIMICRB INC INC IAL MICRO/AGA R DILUTJ BLOOD 56929 [facility] COUNT 0 [facility] HEMOGLOBI INC INC N ANESTHESI 39132 [facility] HANDLEY 0 ANESTH BECKY Fernandez INTRAPERI OF THE TONEAL [place] LOWER ABD W/LAPS NOS LAPAROSCO 00049 [facility] PY W/RMVL 0 PHYSICIAN KALEE ADNEXAL GROUP STRUCTURE PCC S BLOOD 57216 [facility] COUNT 0 [facility] [place] [address] PATHOLOGY PATHOLOGY SURG 0 & & PATHOLOGY CYTOLOGY CYTOLOGY LAB LAB GROSS&[place] [address] [facility] INFUSION 0 [facility] THERAPY INC INC PROPHYLAX IS/DX EA HOUR THERAPEUT 51455 [facility] IC 0 [facility] INJECTION INC [place] [address] [facility] INFUSION 0 [facility] THERAPY/P INC INC ROPHYLAXI S /DX 1ST TO 1 HR LAPAROSCO 6564 [facility] PIC 0 [facility] REMOVAL INC INC OF REMAINING OVARY AND TUBE RADEX 47260 CROW XIONGUTCHER, FOOT 0 MEDICAL JEWELL COMPLETE IMAGING MINIMUM 3 ASSOCIATE VIEWS S BLOOD 12835 [facility] COUNT 0 [facility] COMPLETE INC INC AUTO&AUTO DIFRNTL WBC URNLS DIP 62423 [facility] 0 [facility] STICK/TAB INC INC LET REAGENT AUTO MICROSCOP Y US BREAST 62496 [facility] XIONGMELANIE, REAL 0 MEDICAL JEWELL TIME IMAGING W/IMAGE ASSOCIATE DOCUMENTA S TION 3D 98008 [facility] NAVARRO, RENDERING 0 MEDICAL JEWELL IMAGING W/INTERP& ASSOCIATE POSTPROC S DIFF WORK STATION URNLS DIP 72559 [facility] 0 [facility] STICK/TAB INC INC LET REAGENT AUTO MICROSCOP Y CT PELVIS 55232 [facility] MELANIE, W/O 0 MEDICAL [facility] [address] [place] MELANIE, ABDOMEN 0 MEDICAL JEWELL W/O IMAGING CONTRAST ASSOCIATE MATERIAL S COLLECTIO 69792 [facility] N 0 PHYSICIAN KALEE CAPILLARY GROUP BLOOD PCC SPECIMEN BLOOD 31747 [facility] COUNT 0 PHYSICIAN KALEE HEMOGLOBI GROUP N PCC URINLS 55891 [facility] DIP 0 PHYSICIAN KALEE STICK/TAB GROUP LET PCC REAGNT NON-AUTO MICRSCPY URINALYSI 47540 [facility] S 0 PHYSICIAN KALEE MICROSCOP GROUP IC ONLY PCC IMMUNOASS 73289 [facility] AY TUMOR 0 [facility] [place] [address] [facility] TRANSVAGI 0 PHYSICIAN [place] [address] [facility] NON-IMMUN 0 [facility] OLOGIC OTH/THN CYTOPATHI C CYTP C/V 94063 [facility] AUTO THIN 0 Socrative [facility] Socrative INC LYR PREPJ SCR MNL RESCR PHYS IADNA 56201 [facility] NEISSERIA 0 [facility] GONORRHOE AE AMPLIFIED PROBE TQ IADNA NOS 77428 SPECIALTY SPECIALTY 0 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 PROBE TQ IES INC IES INC EACH ORGANISM IADNA 58502 [facility] CHLAMYDIA 0 Socrative [facility] INC TRACHOMAT IS AMPLIFIED PROBE TQ RADIOLOGI 18015 Symone DELUCA EXAM 0 MEDICAL GARO P CHEST 2 IMAGING VIEWS ASSOCIATE FRONTAL&[place] [address] [facility] INFUSION 0 [facility] THERAPY/P INC INC ROPHYLAXI S /DX 1ST TO 1 HR URNLS DIP 50390 [facility] 9 [facility] STICK/TAB INC INC LET REAGENT AUTO MICROSCOP Y URINLS 31259 Janett RAO DIP 9 BRAYDEN LAWSON C STICK/TAB PSC LET REAGNT NON-AUTO MICRSCPY KO ELAST L1820 GRETA GRETA W/CONDYLR 9 SHIRLEY WATSON MD PADS&JNT PSC PSC PRFAB INCL FIT&[place] [address] [facility] ABDOMEN 9 [facility] W/O INC INC CONTRAST MATERIAL CULTURE 09103 [facility] BACTERIAL 9 [facility] INC INC QUANTTATI VE COLONY COUNT URINE CT PELVIS 04269 [facility] W/O 9 [facility] CONTRAST INC INC MATERIAL URNLS DIP 28160 [facility] 9 [facility] STICK/TAB INC INC LET REAGENT AUTO MICROSCOP Y 3D 72991 [facility] RENDERING 9 [facility] INC INC W/INTERP& POSTPROC DIFF WORK STATION Encounters Encounter Start End Date Code Location Performer Type Date EMERGENCY 94482 LIZ 7 7 [facility] DEPARTMEN INC T VISIT HIGH/URGE NT SEVERITY HOSPITAL LIZ Christopher 7 [facility] OUTPATIEN INC T EMERGENCY 56243 [facility] 7 7 PHYSICIAN VISIT [facility] HIGH SEVERITY& THREAT [facility] EMERGENCY 47656 [facility] DEPT 7 7 PHYSICIAN VISIT [facility] HIGH [facility]VERITY& [facility] LIZ Christopher 7 [facility] OUTPATIEN INC T EMERGENCY 17344 LIZ 7 7 [facility] DEPARTMEN INC T VISIT MODERATE SEVERITY HOSPITAL LIZ - 7 7 [facility] OUTPATIEN INC T OFFICE 73893 SCIFRES SCIFRES OUTPATIEN 6 6 ANG ANG T VISIT 10 MINUTES OFFICE 86211 JENNIFER RODRIGUEZ VIKA OUTPATIEN 6 6 T NEW 10 MINUTES EMERGENCY 44535 BEL RENCLINT 6 6 PHYSICIAN YOBANY C[place]AM [facility] MODERATE SEVERITY OFFICE 68277 [facility] ELIAS OUTPATIEN 6 6 PHYSICIAN STONE T VISIT S GROUP PA-C MARC 15 MINUTES OFFICE 85823 [facility] ELIAS OUTPATIEN 6 6 PHYSICIAN STONE T VISIT S GROUP PA-C MARC 15 MINUTES OFFICE 32699 [facility] FRYMAN OUTPATIEN 6 6 PHYSICIAN EUG T VISIT S GROUP 15 MINUTES OFFICE 23764 [facility] SUDHAKAR OUTPATIEN 6 6 PHYSICIAN ABHAY T VISIT S GROUP 15 MINUTES OFFICE 46783 [facility] S[facility] OUTPATIEN 6 6 PHYSICIAN ABHAY T VISIT S GROUP 15 MINUTES OFFICE 43187 [facility] ROBEL TOD CONSULTAT 6 6 PHYSICIAN ION S GROUP NEW/ESTAB PATIENT 30 MIN OFFICE 18209 [facility] SUDHAKAR OUTPATIEN 6 6 PHYSICIAN ABHAY T VISIT S GROUP 15 MINUTES OFFICE 91749 [facility] ELIAS OUTPATIEN 6 6 PHYSICIAN STONE T VISIT S GROUP PA-C MARC 10 MINUTES OFFICE 40564 [facility] SUDHAKAR OUTPATIEN 5 5 PHYSICIAN ABHAY T VISIT S GROUP 15 MINUTES OFFICE 37416 LIZ OUTPATIEN 5 5 [facility] 15 MINUTES EMERGENCY 05726 BEL [facility] DEPT 5 5 PHYSICIAN ABHAY VISIT S, PLLC HIGH SEVERITY& THREAT [facility] LIZ - 5 5 [facility] OUTPATIEN INC T INITIAL 59358 JOHNATHON CAUSEY PREVENTIV 5 5 MARIUM Gilman MEDICINE NEW PT AGE 18-39YRS OFFICE 13121 [facility] SUDHAKAR OUTPATIEN 5 5 PHYSICIAN ABHAY T VISIT S GROUP 25 MINUTES EMERGENCY 94326 BEL JULIANEUGHN 5 5 PHYSICIAN [facility] S, PLL[facility] T VISIT HIGH/URGE NT SEVERITY OFFICE 24647 [facility] SUD[facility] OUTPATIEN 5 5 PHYSICIAN ABHAY T VISIT S GROUP 10 MINUTES HOSPITAL LIZ - 5 5 [facility] OUTPATIEN INC T OFFICE 09309 [facility] SUD[facility]AR OUTPATIEN 5 5 PHYSICIAN ABHAY T VISIT S GROUP 15 MINUTES OFFICE 84024 [facility] SUD[facility] OUTPATIEN 5 5 PHYSICIAN ABHAY T VISIT S GROUP 15 MINUTES HOSPITAL LIZ - 5 5 [facility] OUTPATIEN INC T EMERGENCY 28705 [facility] [place] [place] 5 5 [facility] T VISIT P LOW/MODER SEVERITY OFFICE 43173 [facility] SUD[facility]AKAR OUTPATIEN 5 5 PHYSICIAN ABHAY T VISIT S GROUP 10 MINUTES OFFICE 20901 [facility] PETTEY OUTPATIEN 5 5 PHYSICIAN JAM T VISIT S GROUP 25 MINUTES OFFICE 43833 [facility] OUTPATIEN 5 5 PHYSICIAN ABHAY T VISIT S GROUP 15 MINUTES OFFICE 19653 [facility] OUTPATIEN 5 5 PHYSICIAN ABHAY T NEW 20 S GROUP MINUTES OFFICE 89746 A C KAREN OUTJEANIE 4 4 [facility] LAW[facility] JEJanett T VISIT PSC 15 MINUTES OFFICE 69191 A Symone JONES OUTJEANIE 4 4 [facility] LAW[facility] JEA T VISIT PSC 15 MINUTES OFFICE 91715 [facility] WINKLER JR OUTPATIEN 3 3 DWI DWI T VISIT 15 MINUTES EMERGENCY 18407 LIZ 3 3 [facility] DEPARTMEN INC T VISIT HIGH/URGE NT SEVERITY EMERGENCY 54936 [facility] DEPT 3 3 BRO BRO VISIT HIGH SEVERITY& [facility] LI[facility] - 3 3 [facility] OUTPATIEN [facility] T HOSPITAL LIZ - 3 3 [facility] OUTPATIEN INC T EMERGENCY 58200 LIZ 3 3 [facility] DEPARTMEN INC T VISIT LOW/MODER SEVERITY EMERGENCY 25237 [facility]AB SOKAN BAB 3 3 DEPARTMEN T VISIT MODERATE SEVERITY EMERGENCY 83044 [facility] [place] 3 3 EMERGENCY DEPARTMEN SERVICES T VISIT MODERATE SEVERITY EMERGENCY 91541 [facility]AR [facility] LA [facility] 3 3 [facility] DEPARTMEN T VISIT MODERATE SEVERITY EMERGENCY 30696 [facility]MODER SEVERITY [facility] LIZ - 3 3 [facility] OUTPATIEN [facility] T OFFICE 89909 [facility]INKLER [facility] 3 3 DWI DWI T VISIT 15 MINUTES EMERGENCY 83104 LIANA GAINES 3 3 III DERRICK III DERRICK DEPARTMEN T VISIT HIGH/URGE NT SEVERITY EMERGENCY 89272 LIZ 3 3 [facility] DEPARTMEN INC T VISIT MODERATE SEVERITY HOSPITAL IL[facility] - 3 3 [facility] OUTPATIEN INC T EMERGENCY 74411 LIANA GAINES DEPT 2 2 III DERRICK III DERRICK VISIT HIGH SEVERITY& THREAT FUNCJ EMERGENCY 28877 DAVID HOBSON 2 2 EMERGENCY [facility] DEPARTMEN SERVICES T VISIT MODERATE SEVERITY EMERGENCY 65393 DAVID GÓMEZ 2 2 EMERGENCY DEPARTMEN SERVICES T VISIT HIGH/URGE NT SEVERITY HOSPITAL LIZ - 2 2 [facility] OUTPATIEN INC T EMERGENCY 64157 LIANA RAMOSMAN 2 2 III DERRICK III DERRICK DEPARTMEN T VISIT HIGH/URGE NT SEVERITY EMERGENCY 48132 LIZ 2 2 [facility] LOW/MODER SEVERITY OFFICE 85416 MAMIE HATCH ARTURO OUTPATIEN 2 2 T NEW 20 MINUTES HOSPITAL LIZ - 2 2 [facility] INC T OFFICE 99351 PETERSON WINKLER JR OUTPATIEN 2 2 DWI DWI T VISIT 15 MINUTES EMERGENCY 05625 LIANA RAMOSMAN 2 2 III DERRICK III [facility] T VISIT HIGH/URGE NT SEVERITY HOSPITAL LIZ - 2 2 [facility] OUTPATIEN [facility] T OFFICE 32726 PETTEY PETTEY OUTPATIEN 2 2 JAM JAM T VISIT 15 MINUTES HOSPITAL LIZ - 2 2 [facility] T OFFICE 40265 PETTEY PETTEY OUTPATIEN 2 2 JAM JAM T VISIT 15 MINUTES HOSPITAL LIZ - 2 2 [facility] T OFFICE 92177 PETTEY PETTEY OUTPATIEN 2 2 JAM JAM T VISIT 15 MINUTES OFFICE 57393 PETERSON JR PETERSON JR OUTPATIEN 2 2 DWI DWI T VISIT 15 MINUTES OFFICE 26097 PETERSON JR PETERSON JR OUTPATIEN 2 2 DWI DWI T VISIT 15 MINUTES OFFICE 61595 PETERSON JR PETERSON JR OUTPATIEN 2 2 DWI DWI T VISIT 15 MINUTES OFFICE 97137 PETERSON DWI PETERSON DWI OUTPATIEN 2 2 T VISIT 15 MINUTES OFFICE 48851 PETERSON JR PETERSON JR OUTPATIEN 2 2 DWI DWI T VISIT 15 MINUTES HOSPITAL LIZ - 1 1 [facility] INC T EMERGENCY 85387 LIZ 1 1 [facility] VISIT LOW/MODER SEVERITY EMERGENCY 41936 HERNANDEZ KEYUR HERNANDEZ KEYUR 1 1 DEPARTMEN T VISIT MODERATE SEVERITY OFFICE 66432 PETERSON SASKIA PETERSON DWI OUTPATIEN 1 1 T VISIT 15 MINUTES EMERGENCY 47084 LIANA GAINES 1 1 III DERRICK III [facility] T VISIT HIGH/URGE NT SEVERITY HOSPITAL LIZ - 1 1 [facility] INC T EMERGENCY 28940 LIZ 1 1 [facility] T VISIT LIMITED/M INOR PROB OFFICE 64309 PETTEMily PETTEY OUTPATIEN 1 1 JAM JAM T NEW 30 MINUTES OFFICE 71266 PETERSON WINKLER JR OUTPATIEN 1 1 DWI DWI T VISIT 15 MINUTES HOSPITAL LIZ - 1 1 [facility] OUTPATIEN INC T EMERGENCY 37846 HERNANDEZ KEYUR HERNANDEZ KEYUR [address] H[facility]/URGE NT SEVERITY EMERGENCY 58812 LIZ 1 1 [facility] T VISIT LOW/MODER SEVERITY OFFICE 35261 PETERSON WINKLER JR OUTPATIEN 1 1 DWI DWI T VISIT 15 MINUTES HOSPITAL LIZ - 1 1 [facility] T EMERGENCY 93856 [facility] 1 1 [facility] T VISIT LIMITED/M INOR PROB EMERGENCY 42669 DAVID GAINES 1 1 EMERGENCY III [facility] SERVICES T VISIT MODERATE SEVERITY OFFICE 81851 ELFEGO TELLES OUTPATIEN 1 1 KEYUR KEYUR T NEW 10 MINUTES EMERGENCY 46583 DAVID COOLEY [address] [facility] SERVICES T VISIT HIGH/URGE NT SEVERITY EMERGENCY 67117 LIZ 1 1 [facility] DEPARTMEN INC T VISIT LOW/MODER SEVERITY HOSPITAL LIZ - 1 1 [facility] T [facility] LIZ - 1 1 [facility] INC T EMERGENCY 79410 LIZ 1 1 [facility] DEPARTMEN INC T VISIT LOW/MODER SEVERITY HOSPITAL LIZ - 1 1 [facility] INC T EMERGENCY 74823 LIZ 1 1 [facility] DEPARTMEN INC T VISIT LIMITED/M INOR PROB HOSPITAL ILZ - 1 1 [facility] INC T EMERGENCY 53009 LIZ 1 1 [facility] DEPARTMEN INC T VISIT LOW/MODER SEVERITY HOSPITAL LIZ - 1 1 [facility] OUT[facility]IEN INC T EMERGENCY 06119 DAVID GAINES [address] [facility] [facility] MODERATE SEVERITY EMERGENCY 03432 LIZ 1 1 [facility] DEPARTMEN INC T VISIT LIMITED/M INOR PROB OFFICE 88601 PETERSON KRUGER OUTPATIEN 1 1 [facility] T VISIT 15 MINUTES EMERGENCY 39335 DAVID GAINES 1 1 [facility] III [facility] HIGH/URGE NT SEVERITY [facility] LIZ - 1 1 [facility] OUT[facility] INC T EMERGENCY 49800 LIZ 1 1 [facility] DEPARTMEN INC T VISIT LOW/MODER SEVERITY [facility]OSPITAL LIZ - 1 1 [facility] INC T EMERGENCY 17926 LIZ 1 1 [facility] DEPARTMEN INC T VISIT MODERATE SEVERITY EMERGENCY 53844 DAVID OLIVARES 1 1 EMERGENCY DEPARTMEN SERVICES T VISIT HIGH/URGE NT SEVERITY OFFICE 66626 PETERSON WINKLER DWI OUTPATIEN 1 1 [facility] T VISIT 15 MINUTES OFFICE 94946 [facility] OUTPAT[facility] 1 1 PHYSICIAN KALEE T VISIT GROUP 15 PCC MINUTES EMERGENCY 01488 LIZ 1 1 [facility] T VISIT LOW/MODER SEVERITY [facility]OSPITAL LIZ - 1 1 [facility] T EMERGENCY 62962 DAVID GAINES 1 1 EMERGENCY III [facility] SERVICES T VISIT HIGH/URGE NT SEVERITY EMERGENCY 81582 LIZ 1 1 [facility] T VISIT LIMITED/M INOR PROB HOSPITAL LIZ - 1 1 [facility] T EMERGENCY 35471 DAVID DE LA FUENTE 1 1 [facility]ENCY [facility] T VISIT HIGH/URGE NT SEVERITY EMERGENCY 51609 DAVID HERNANDEZ KEYUR 1 1 EMERGENCY [facility] SERVICES T VISIT HIGH/URGE NT SEVERITY HOSPITAL LIZ - 1 1 [facility] T EMERGENCY 48154 LIZ 1 1 [facility] T VISIT LOW/MODER SEVERITY EMERGENCY 68173 [place] 1 1 [facility] T VISIT LOW/MODER SEVERITY EMERGENCY 86835 DAVID MAYO [address]ATE SEVERITY [facility] [place] - 1 1 [facility] T EMERGENCY 52740 DAVID OLIVARES [address] MODERATE SEVERITY [facility]OSPITAL LIZ - 1 1 [facility] 26987 PETERSON WINKLER DWI OUTPATIEN 1 1 [facility] T VISIT 15 MINUTES EMERGENCY 99867 DAVID HERNANDEZ KEYUR [address] HIGH/URGE NT SEVERITY [facility]OSP[facility] LIZ - 1 1 [facility] OUT[facility] INC T EMERGENCY 94370 LIZ 1 1 [facility] DEPARTMEN INC T VISIT LOW/MODER SEVERITY EMERGENCY 38954 LIZ 1 1 [facility] DEPARTMEN INC T VISIT MODERATE SEVERITY EMERGENCY 33056 DAVID MANZANO 1 1 EMERGENCY [facility] T VISIT HIGH/URGE NT SEVERITY HOSPITAL LIZ - 1 1 [facility] T [facility]PITAL LIZ - 1 1 [facility] OUT[facility] INC T EMERGENCY 86134 LIZ 1 1 [facility] DEPARTMEN INC T VISIT LOW/MODER SEVERITY EMERGENCY 21266 DAVID DE LA FUENTE 1 1 EMERGENCY [facility] SERVICES T VISIT HIGH/URGE NT SEVERITY EMERGENCY 20839 DAVID BAER 1 1 EMERGENCY DEPARTMEN SERVICES T VISIT MODERATE SEVERITY HOSPITAL LIZ - 1 1 [facility] INC T EMERGENCY 75642 LIZ 1 1 [facility] DEPARTMEN INC T VISIT LOW/MODER SEVERITY OFFICE 72335 PETERSON WINKLER DWI OUTPATIEN 1 1 [facility] T VISIT 15 MINUTES EMERGENCY 52662 LIZ 1 1 [facility] DEPARTMEN INC T VISIT MODERATE SEVERITY HOSPITAL LIZ - 1 1 [facility] OUTPATIEN INC T EMERGENCY 94010 DAVID DE LA FUENTE 1 1 EMERGENCY [facility] DEPARTMEN SERVICES T VISIT HIGH/URGE NT SEVERITY OFFICE 77274 PETERSON WINKLER DWI OUTPATIEN 1 1 [facility] T VISIT 15 MINUTES EMERGENCY 17408 LIZ 1 1 [facility] DEPARTMEN INC T VISIT MODERATE SEVERITY HOSPITAL LIZ - 1 1 [facility] OUTPAT[facility]EN INC T EMERGENCY 88857 DAVID GAINES 1 1 EM[facility]GENCY III [facility] DEPARTMEN SERVICES T VISIT HIGH/URGE NT SEVERITY EMERGENCY 15484 LIZ 1 1 [facility] DEPARTMEN INC T VISIT MODERATE SEVERITY EMERGENCY 42250 DAVID BAER [address] HIGH/URGE NT SEVERITY [facility]PITAL LIZ - 1 1 [facility] OUTPAT[facility] INC T OFFICE 26153 PETERSON WINKLER DWI OUTPATIEN 1 1 [facility] T VISIT 15 MINUTES HOSPITAL LIZ - 1 1 [facility] OUTPATIEN INC T EMERGENCY 74358 LIZ 1 1 [facility] DEPARTMEN INC T VISIT LOW/MODER SEVERITY EMERGENCY 35048 DAVID OLIVARES 1 1 EMERGENCY DEPARTMEN SERVICES T VISIT MODERATE SEVERITY OFFICE 20417 LIZ JADE OUTPATIEN 1 1 [facility] T VISIT HOSPITAL 25 P MINUTES HOSPITAL [place] - 1 1 [facility] T EMERGENCY 70285 [place] 1 1 [facility]PITAL T VISIT MODERATE SEVERITY EMERGENCY 22712 DAVID DE LA FUENTE 1 1 [facility]Y [facility] DEPARTMEN SERVICES T VISIT HIGH/URGE NT SEVERITY EMERGENCY 27001 LIZ 1 1 [facility] DEPARTMEN INC T VISIT LOW/MODER SEVERITY HOSPITAL LIZ - 1 1 [facility] OUTPATIEN INC T OFFICE 48996 PETERSON WINKLER DWI OUTPATIEN 1 1 [facility] T VISIT 15 MINUTES OFFICE 25521 PETERSON WINKLER DWI OUTPATIEN 1 1 [facility] T VISIT 15 MINUTES HOSPITAL LIZ - 1 1 [facility] INC T OFFICE 97763 AMARILSI OLMOS OUTPATIEN 1 1 MARIANA MARIANA T VISIT 15 MINUTES EMERGENCY 76191 DAVID GAINES 1 1 EMERGENCY III DERRICK DEPARTMEN SERVICES T VISIT HIGH/URGE NT SEVERITY HOSPITAL LIZ - 1 1 [facility] OUTPAT[facility] INC T OFFICE 27907 Janett OWEN A OUTPATIEN 1 1 [facility] LAWSON T VISIT PSC 15 MINUTES EMERGENCY 22272 LIZ 1 1 [facility] DEPARTMEN INC T VISIT LOW/MODER SEVERITY OFFICE 12664 PETERSON WINKLER DWI OUTPATIEN 1 1 [facility] T VISIT 15 MINUTES OFFICE 41346 [facility], OUTPATIEN 1 1 IMPLANT & III VINICIO T NEW 20 ORAL MINUTES SURGERY C EMERGENCY 62859 LIZ 1 1 [facility] T VISIT MODERATE SEVERITY EMERGENCY 27929 DAVID OLIVARES 1 1 EMERGENCY DEPARTMEN SERVICES T VISIT HIGH/URGE NT SEVERITY HOSPITAL LIZ - 1 1 [facility] INC T OFFICE 05721 PETERSON WINKLER DWI OUTPATIEN 1 1 [facility] T VISIT 15 MINUTES OFFICE 40860 [facility] 1 1 [facility] 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/ESTAB 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 PATIENT 80 MIN OFFICE 31377 PETERSON WINKLER DWI OUTPATIEN 1 1 [facility] T VISIT 15 MINUTES HOSPITAL LIZ - 1 1 [facility] INC T OFFICE 15906 PETERSON WINKLER DWI OUTPATIEN 1 1 [facility] T VISIT 15 MINUTES OFFICE 99280 [facility] OUTPATIEN 1 1 PHYSICIAN KALEE T VISIT GROUP 15 PCC MINUTES EMERGENCY 09376 DAVID BAER 1 1 EMERGENCY DEPARTMEN SERVICES T VISIT HIGH/URGE NT SEVERITY HOSPITAL LIZ - 1 1 [facility] OUTPAT[facility]EN INC T EMERGENCY 57401 LIZ 1 1 [facility] DEPARTMEN INC T VISIT MODERATE SEVERITY HOSPITAL LIZ - 1 1 [facility] OUTPATIEN INC T OFFICE 76152 LI[facility] H[facility] OUTPATIEN 1 1 [facility] T VISIT [facility] CENTER MINUTES OFFICE 75614 LIZ H[facility] OUTPATIEN 1 1 [facility] T NEW 10 CENTER CENTER MINUTES OFFICE 30250 [facility] OUT[facility] 1 1 PHYSICIAN KALEE T VISIT GROUP 15 PCC MINUTES OFFICE 64377 PETERSON WINKLER DWI OUTPATIEN 1 1 [facility] T VISIT 25 MINUTES EMERGENCY 70489 LIZ 1 1 [facility] DEPARTMEN INC T VISIT LOW/MODER SEVERITY EMERGENCY 66638 DAVID OLIVARES 1 1 EMERGENCY DEPARTMEN SERVICES T VISIT HIGH/URGE NT SEVERITY HOSPITAL LIZ - 1 1 [facility] OUTPATIEN INC T OFFICE 43947 PETERSON WINKLER DWI OUTPATIEN 1 1 [facility] T VISIT 15 MINUTES HOSPITAL LIZ - 1 1 [facility] OUTPAT[facility] INC T OFFICE 43769 [facility] OUT[facility] 0 0 PHYSICIAN KALEE T VISIT GROUP 15 PCC MINUTES OFFICE 11451 PETERSON WINKLER DWI OUTPATIEN 0 0 [facility] T VISIT 15 MINUTES OFFICE 60682 PETERSON WINKLER DWI OUTPATIEN 0 0 [facility] T VISIT 15 MINUTES OFFICE 45420 PETERSON PETERSON DWI OUTPATIEN 0 0 [facility] T VISIT 15 MINUTES OFFICE 59103 PETERSON PETERSON DWI OUTPATIEN 0 0 [facility] T VISIT 15 MINUTES HOSPITAL LIZ - 0 0 [facility] T [facility] LIZ - 0 0 [facility] OUTPAT[facility] INC T EMERGENCY 07197 DAVID FRANKELCHARBEL BAB 0 0 EMERGENCY DEPARTMEN SERVICES T VISIT HIGH/URGE NT SEVERITY EMERGENCY 25735 LIZ 0 0 [facility] DEPARTMEN INC T VISIT LOW/MODER SEVERITY OFFICE 50606 A Symone Rowland OUTPATIEN 0 0 [facility] LAWSON T VISIT PSC 15 MINUTES OFFICE 41069 LINDSAY MONTOYA OUTPATIEN 0 0 SILVIA SILVIA T VISIT 15 MINUTES EMERGENCY 71673 DAVID ANTOINE AND 0 0 EMERGENCY DEPARTMEN SERVICES T VISIT HIGH/URGE NT SEVERITY [facility] LZI - 0 0 [facility] OUTPATIEN INC T EMERGENCY 27469 LIZ 0 0 [facility] DEPARTMEN INC T VISIT LIMITED/M INOR PROB OFFICE 99103 PETERSON KRUGER OUTPATIEN 0 0 [facility] T VISIT 15 MINUTES OFFICE 43183 A Symone Rowland OUTPATIEN 0 0 [facility] LAWSON T VISIT PSC 15 MINUTES OFFICE 53604 PETERSON KRUGER OUTPATIEN 0 0 [facility] T VISIT 15 MINUTES OFFICE 52305 [facility] OUTPATIEN 0 0 PHYSICIAN KALEE T VISIT GROUP 15 PCC MINUTES OFFICE 43596 Janett FRAZIER OUTPATIEN 0 0 [facility] MARIANA T VISIT PSC 15 MINUTES OFFICE 28441 MARIELENA ANTOINO 0 0 MORRIS MORRIS E T VISIT EMD 15 MINUTES OFFICE 98711 LINDSAY MONTOYA OUTPATIKAITLIN 0 0 SILVIA VEGA A T VISIT 15 MINUTES OFFICE 25555 MARIELENA ANTONIO 0 0 MORRIS MORRIS E T VISIT EMD 15 MINUTES EMERGENCY 79733 DAVID CARTER, 0 0 EMERGENCY [facility] DEPARTMEN SERVICES O T VISIT HIGH/URGE ASSOCIATE NT S SEVERITY HOSPITAL LIZ - 0 0 [facility] OUTPATIEN INC T EMERGENCY 68328 LIZ 0 0 [facility] DEPARTMEN INC T VISIT LIMITED/M INOR PROB OFFICE 20097 LINDSAY MONTOYA OUTPATIEN 0 0 SILVIA A SILVIA A T VISIT 15 MINUTES OFFICE 37478 MARIELENA ANTONIO 0 0 MORRIS MORRIS E T VISIT EMD 15 MINUTES EMERGENCY 22404 LIZ 0 0 [facility] DEPARTMEN INC T VISIT LOW/MODER SEVERITY EMERGENCY 29607 DAVID DE LA FUENTE, 0 0 EMERGENCY [facility] DEPARTMEN SERVICES T VISIT HIGH/URGE ASSOCIATE NT S SEVERITY HOSPITAL LIZ - 0 0 [facility] OUTPATIEN INC T EMERGENCY 91324 LIZ 0 0 [facility] DEPARTMEN INC T VISIT LOW/MODER SEVERITY [facility]OSPITAL LIZ - 0 0 [facility] OUTPATIEN INC T EMERGENCY 59962 DAVID GAINES 0 0 EMERGENCY III, DEPARTMEN SERVICES BECKY T VISIT HIGH/URGE ASSOCIATE NT S SEVERITY OFFICE 40349 LINDSAY MONTOYA OUTPATIEN 0 0 SILVIA A SILVIA A T VISIT 15 MINUTES OFFICE 80723 MARIELENA ANTONIO 0 0 M[facility]IS MORRIS E T VISIT EMD 15 MINUTES EMERGENCY 50341 LIZ 0 0 [facility] DEPARTMEN INC T VISIT LIMITED/M INOR PROB HOSPITAL LIZ - 0 0 [facility] OUTPATIEN INC T EMERGENCY 54613 DAVID CARTER, 0 0 EMERGENCY [facility] DEPARTMEN SERVICES O T VISIT HIGH/URGE ASSOCIATE NT S SEVERITY OFFICE 30147 MARIELENA ANTONIO 0 0 [facility]IS MORRIS E T VISIT EMD 15 MINUTES HOSPITAL LIZ - 0 0 [facility] OUTPATIEN INC T OFFICE 72618 HARSH ANTONIOPATIEN 0 0 M[facility]IS MORRIS E T VISIT EMD 15 MINUTES OFFICE 86302 [facility] OUTPATIEN 0 0 PHYSICIAN KALEE T VISIT GROUP 15 PCC MINUTES OFFICE 11365 HARSH ANTONIOPATIEN 0 0 [facility]IS MORRIS E T VISIT EMD 15 MINUTES OFFICE 25560 PETERSON WINKLER OUTPATIEN 0 0 M[facility]IS MORRIS E T VISIT EMD 15 MINUTES EMERGENCY 95282 LIZ 0 0 [facility] DEPARTMEN INC T VISIT LIMITED/M INOR PROB [facility]OSPITAL LIZ - 0 0 [facility] OUTPATIEN INC T EMERGENCY 26694 DAVID GAINES 0 0 EMERGENCY III, DEPARTMEN SERVICES BECKY T VISIT HIGH/URGE ASSOCIATE NT S SEVERITY OFFICE 78437 Janett RAOPATIEN 0 0 BRAYDEN Ashby T VISIT PSC 15 MINUTES OFFICE 30851 LINDSAY MONTOYA OUTPATIEN 0 0 SILVIA Rowland T VISIT 15 MINUTES EMERGENCY 54779 DAVID DE LA FUENTE, 0 0 EMERGENCY [facility] DEPARTMEN SERVICES T VISIT HIGH/URGE ASSOCIATE NT S SEVERITY EMERGENCY 06935 LIZ 0 0 [facility] DEPARTMEN INC T VISIT LIMITED/M INOR PROB [facility]OSPITAL LIZ - 0 0 [facility] OUTPATIEN INC T OFFICE 66746 Janett RAOPATIEN 0 0 BRAYDEN Ashby T VISIT PSC 15 MINUTES OFFICE 77726 [facility] OUTPATIEN 0 0 PHYSICIAN KALEE T VISIT GROUP 15 PCC MINUTES HOSPITAL LIZ - 0 0 [facility]PAT[facility] INC T [facility]PITAL LIZ - 0 0 [facility]PAT[facility] INC T OFFICE 62980 [facility] OUT[facility] 0 0 PHYSICIAN KALEE T VISIT GROUP 15 PCC MINUTES EMERGENCY 08185 LIZ 0 0 [facility] DEPARTMEN INC T VISIT LIMITED/M INOR PROB EMERGENCY 38874 DAVID CARTER, 0 0 EMERGENCY [facility] DEPARTMEN SERVICES O T VISIT MODERATE ASSOCIATE SEVERITY S OFFICE 94465 MARIELENA ANTONIO 0 0 [facility] MORRIS E T VISIT EMD 15 MINUTES HOSPITAL LIZ - 0 0 [facility]PAT[facility] T [facility] 0 0 [facility] OUTPAT[facility]EN INC T OFFICE 36422 MARIELENA ANTONIO 0 0 [facility] MORRIS E T VISIT EMD 15 MINUTES HOSPITAL LIZ - 0 0 [facility] OUTPATIEN INC T EMERGENCY 13064 DAVID SUDHAKAR, 0 0 [facility] T [facility]ISIT HIGH/URGE ASSOCIATE NT S SEVERITY OFFICE 60497 [facility] OUT[facility] 0 0 PHYSICIAN KALEE T VISIT GROUP 15 PCC MINUTES HOSPITAL LIZ - 0 0 [facility] OUTPATIEN INC T EMERGENCY 35461 LIZ 0 0 [facility] DEPARTMEN INC T VISIT LOW/MODER SEVERITY [facility]OSPITAL LIZ - 0 0 [facility] OUTPATIEN INC T OFFICE 48254 MARIELENA ANTONIO 0 0 [facility] MORRIS E T VISIT EMD 15 MINUTES HOSPITAL LIZ - 0 0 [facility] OUTPATIEN INC T OFFICE 80408 MARIELENA ANTONIO 0 0 [facility]IS MORRIS E T VISIT EMD 15 MINUTES OFFICE 93161 [facility] OUT[facility] 0 0 PHYSICIAN KALEE T VISIT GROUP 15 PCC MINUTES HOSPITAL LIZ - 0 0 [facility] OUTPATIEN INC T EMERGENCY 98224 LIZ 0 0 [facility] DEPARTMEN INC T VISIT LIMITED/M INOR PROB EMERGENCY 96383 DAVID CARTER, 0 0 EMERGENCY [facility] DEPARTMEN SERVICES O T VISIT HIGH/URGE ASSOCIATE NT S SEVERITY [facility]OSPITAL LIZ - 0 0 [facility] OUTPATIEN INC T OFFICE 15144 MARIELENA ANTONIO 0 0 [facility] MORRIS E T VISIT EMD 15 MINUTES HOSPITAL LIZ - 0 0 [facility]PAT[facility] INC T [facility] LIZ - 0 0 [facility] OUTPAT[facility] INC T OFFICE 27603 MARIELENA ANTONIO 0 0 [facility] MORRIS E T VISIT EMD 15 MINUTES EMERGENCY 69029 DAVID DE LA FUENTE, DEPT 0 0 EMERGENCY VIPER S VISIT SERVICES HIGH SEVERITY& ASSOCIATE THREAT S [facility] EMERGENCY 10346 LIZ 0 0 [facility] DEPARTMEN INC T VISIT LOW/MODER SEVERITY [facility]OSPITAL LIZ - 0 0 [facility] OUTPATIEN INC T OFFICE 07160 MARIELENA ANTONIO 9 9 M[facility]IS MORRIS E T VISIT EMD 15 MINUTES EMERGENCY 23427 LIZ 9 9 [facility] DEPARTMEN INC T VISIT LIMITED/M INOR PROB EMERGENCY 36762 DAVID GAINES 9 9 EMERGENCY III, DEPARTMEN SERVICES BECKY T VISIT HIGH/URGE ASSOCIATE NT S SEVERITY HOSPITAL LIZ - 9 9 [facility] OUTPATIEN INC T EMERGENCY 37811 DAVID KERN 9 9 EMERGENCY , MARGE DEPARTMEN SERVICES T VISIT MODERATE ASSOCIATE SEVERITY S OFFICE 18022 MARIELENA ANTONIO 9 9 [facility]IS E T VISIT EMD 15 MINUTES HOSPITAL LIZ - 9 9 [facility] OUTPAT[facility] INC T EMERGENCY 38964 LIZ 9 9 [facility] DEPARTMEN INC T VISIT LOW/MODER SEVERITY EMERGENCY 01150 DAVID DE LA FUENTE, [address] [facility] SERVICES T VISIT MODERATE ASSOCIATE SEVERITY S HOSPITAL LIZ - 9 9 [facility]PAT[facility] INC T EMERGENCY 22850 LIZ 9 9 [facility]/M INOR PROB EMERGENCY 28096 DAVID CARTER, 9 9 [facility] T VISIT HIGH/URGE ASSOCIATE NT S SEVERITY OFFICE 80331 MARIELENA ANTONIO 9 9 [facility] M[facility]RIS E T VISIT EMD 15 MINUTES HOSPITAL LIZ - 9 9 [facility] OUTPATI[facility] INC T EMERGENCY 00846 DAVID DE LA FUENTE, [address] [facility] SERVICES T VISIT HIGH/URGE ASSOCIATE NT S SEVERITY EMERGENCY 95650 LIZ 9 9 [facility]/M INOR PROB OFFICE 80056 MARIELENA HERRERA 9 9 CARE R DEON T VISIT ASSOCIATE 15 S MINUTES OFFICE 83177 MARIELENA ANTONIO 9 9 [facility]IS MORRIS E T NEW 45 EMD MINUTES EMERGENCY [id number] LIZ 9 9 [facility] DEPART[facility] INC T VISIT LIMITED/M INOR PROB EMERGENCY 90558 DAVID MARCUS, 9 9 [facility] VISIT MODERATE ASSOCIATE SEVERITY S HOSPITAL LIZ - 9 9 [facility] INC T OFFICE 50485 Janett RAO 9 9 [place] T VISIT PSC 15 MINUTES OFFICE [id number] JOSE ANTONIO BRADY OUTPATIEN 9 9 [facility] PINEDAANDO T VISIT 40 MINUTES EMERGENCY [id number] DAVID CARTER, 9 9 [facility]Y [facility] DEPARTMEN SERVICES O T VISIT MODERATE ASSOCIATE SEVERITY [facility] LIZ - 9 9 [facility] OUTPATIEN INC T EMERGENCY [id number] LIZ 9 9 [facility] DEPARTMEN INC T VISIT LIMITED/M INOR PROB [facility]OSPITAL LIZ - 9 9 [facility] OUTPATIEN INC T EMERGENCY 78086 DAVID TEJADA, 9 9 EMERGENCY [facility] DEPARTMEN SERVICES T VISIT MODERATE ASSOCIATE SEVERITY [facility] LIZ - 9 9 [facility] OUTPATIEN INC T EMERGENCY [id number] LIZ 9 9 [facility] DEPARTMEN INC T VISIT LOW/MODER SEVERITY [facility] LIZ - 9 9 [facility] OUTPATIEN INC T EMERGENCY 91811 LIZ 9 9 [facility] DEPARTMEN INC T VISIT LOW/MODER SEVERITY [facility] LIZ - 9 9 [facility] INC T [facility] LIZ - 9 9 [facility] OUTPATI[facility] INC T EMERGENCY [id number] LIZ 9 9 [facility] DEPARTMEN INC T VISIT LIMITED/M INOR PROB OFFICE [id number] LINDSAY MONTOYA OUTPATIEN 9 9 SILVIA Rowland T VISIT 15 MINUTES
--- OUTSIDE RECORDS SUMMARY | 2017-03-22 22:02 | External Medical Summary Rpt ---
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 MINIMUM 2 ASS VIEWS RADEX 86879 [facility] SHOULDER 1 [facility] COMPLETE INC INC MINIMUM 2 VIEWS SLINGS A4565 [facility] 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 ASPIRATE IES IES INTERP & REPORT PUNCTURE 64728 [facility] ASPIRATIO 1 PHYSICIAN PHYSICIAN N CYST GROUP GROUP BREAST PCC PCC URNLS DIP 74249 [facility] 1 [facility] STICK/TAB INC INC LET REAGENT AUTO MICROSCOP Y INITIAL 86281 DAVID GAINES TX 1ST 1 EMERGENCY III DERRICK DEGREE SERVICES BURN LOCAL TX URNLS DIP 90519 LIZ JADE JR 1 [facility] STICK/[facility] LET RGNT P NON-AUTO W/O MICRSCP RADIOLOGI 62389 [facility] XIONGMELANIE C 1 MEDICAL LIZZETTE EXAMINATI IMAGING ON KNEE 3 ASS VIEWS URNLS DIP 87142 [facility] 1 [facility] STICK/TAB INC [place] [address] [facility] XIONGMELANIE ABDOMEN & 1 MEDICAL LIZZETTE PELVIS IMAGING W/O ASS CONTRAST MATERIAL 3D 02677 [facility] LANIERMily NAVARRO RENDERING 1 MEDICAL LIZZETTE IMAGING W/INTERP& ASS POSTPROC DIFF WORK STATION RADIOLOGI 06281 [place] MELANIE C 1 MEDICAL LIZZETTE EXAMINATI IMAGING ON PELVIS ASS 1/2 VIEWS URINLS 78056 A C OWEN A DIP 1 BRAYDEN LAWSON STICK/TAB PSC LET REAGNT NON-AUTO MICRSCPY RADEX 33241 [place] MELANIE SPINE 1 MEDICAL LIZZETTE LUMBOSACR IMAGING AL ASS MINIMUM 4 VIEWS RADEX 27430 [facility] [place] [facility] SACRUM & 1 RADIOLOGY LD A COCCYX MINIMUM 2 VIEWS BONE 65737 [facility] [place] [facility] LENGTH 1 RADIOLOGY LD A STUDIES OPHTH 11379 [facility] 1 VISION ANG XM&EVAL COMPRHNSV ESTAB PT 1/> URNLS DIP 17284 [facility] 1 [facility] STICK/TAB INC INC LET REAGENT AUTO MICROSCOP Y DIAGNOSTI G0204 [facility] MELANIE C 1 MEDICAL LIZZETTE MAMMOGRAP IMAGING HY INCL ASS CAD WHEN PERF; BILAT US BREAST 43008 [facility] XIONGMELANIE REAL 1 MEDICAL LIZZETTE TIME IMAGING W/IMAGE ASS DOCUMENTA TION SKIN TEST 77399 [facility] 1 [facility] SIS INTRADERM AL RADEX 12752 [place] MEL[place]IE SPINE 1 MEDICAL LIZZETTE LUMBOSACR IMAGING AL ASS MINIMUM 4 VIEWS RADEX 22222 [place] MELANIE SPINE 1 MEDICAL LIZZETTE LUMBOSACR IMAGING AL ASS MINIMUM 4 VIEWS RADEX 82730 [place] MELANIE ABDOMEN 1 0 MEDICAL LIZZETTE IMAGING ANTEROPOS ASS TERIOR VIEW URNLS DIP 59304 [facility] 0 [facility] STICK/TAB INC INC LET REAGENT AUTO MICROSCOP Y RADIOLOGI 30698 [place] MELANIE C 0 MEDICAL LIZZETTE EXAMINATI IMAGING ON KNEE 3 ASS VIEWS URINLS 06242 A C KARIN DIP 0 BRAYDEN LAWSON MARIANA STICK/TAB PSC LET REAGNT NON-AUTO MICRSCPY CULTURE 14677 [facility] BCT 0 [facility] [employer] INC ISOL&PRSM PTV ID ISOLATE EA URINE CULTURE 50033 [facility] BACTERIAL 0 [employer] [facility] QUANTTATI VE COLONY COUNT URINE RADIOLOGI 23102 [place] Symone TAYLOR 0 MEDICAL GARO P EXAMINATI IMAGING ON KNEE 3 ASSOCIATE VIEWS S APPL 61016 [facility] MODALITY 0 [facility] 1/> AREAS INC INC IONTOPHOR ESIS EA 15 MIN THERAPEUT 16802 [facility] IC PX 1/> 0 [facility] AREAS INC INC EACH 15 MIN EXERCISES APPL 98320 [facility] MODALITY 0 [facility] 1/> AREAS INC INC ELEC STIMJ UNATTENDE D APPLICATI 90023 [facility] ON 0 [facility] MODALITY INC INC 1/> AREAS HOT/COLD PACKS APPL 99864 [facility] MODALITY 0 [facility] 1/> AREAS INC INC ULTRASOUN D EA 15 MIN APPL 67153 [facility] MODALITY 0 [facility] 1/> AREAS INC INC ULTRASOUN D EA 15 MIN APPL 66799 [facility] MODALITY 0 [facility] 1/> AREAS INC INC ELEC STIMJ UNATTENDE D APPL 97662 [facility] MODALITY 0 [facility] 1/> AREAS INC INC IONTOPHOR ESIS EA 15 MIN APPLICATI 99735 [facility] ON 0 [facility] MODALITY INC INC 1/> AREAS HOT/COLD PACKS PHYSICAL 40759 [facility] THERAPY 0 [facility] EVALUATIO INC INC N URINLS 28975 Janett RAO DIP 0 BRAYDEN Ashby STICK/TAB PSC LET REAGNT NON-AUTO MICRSCPY CUL BACT 81691 [facility] XCPT 0 [facility] URINE INC INC BLOOD/STO OL AEROBIC ISOL CUL BACT 40773 [facility] AEROBIC 0 [facility] ADDL INC INC METHS DEFINITIV E EA ISOL SUSCEPTIB 67113 [facility] LTY STDY 0 [facility] ANTIMICRB INC INC IAL MICRO/AGA R DILUTJ BLOOD 14611 [facility] COUNT 0 [facility] HEMOGLOBI INC INC N ANESTHESI 78687 [facility] HANDLEY 0 ANESTH BECKY Fernandez INTRAPERI OF THE TONEAL [place] LOWER ABD W/LAPS NOS LAPAROSCO 86742 [facility] HARPEL PY W/RMVL 0 PHYSICIAN KALEE ADNEXAL GROUP STRUCTURE PCC S BLOOD 62229 [facility] COUNT 0 [facility] [address] PATHOLOGY PATHOLOGY SURG 0 & & PATHOLOGY CYTOLOGY CYTOLOGY LAB LAB GROSS&[place] [address] [facility] INFUSION 0 [facility] THERAPY INC INC PROPHYLAX IS/DX EA HOUR THERAPEUT 88427 [facility] IC 0 [facility] INJECTION INC [place] [address] [facility] INFUSION 0 [facility] THERAPY/P INC INC ROPHYLAXI S /DX 1ST TO 1 HR LAPAROSCO 6564 [facility] PIC 0 [facility] REMOVAL INC INC OF REMAINING OVARY AND TUBE RADEX 97914 CROW XIONGUTCHER, FOOT 0 MEDICAL JEWELL COMPLETE IMAGING MINIMUM 3 ASSOCIATE VIEWS S BLOOD 59501 [facility] COUNT 0 [facility] COMPLETE INC INC AUTO&AUTO DIFRNTL WBC URNLS DIP 24008 [facility] 0 [facility] STICK/TAB INC INC LET REAGENT AUTO MICROSCOP Y US BREAST 90289 [facility] XIONGMELANIE, REAL 0 MEDICAL JEWELL TIME IMAGING W/IMAGE ASSOCIATE DOCUMENTA S TION 3D 51036 [facility] NAVARRO, RENDERING 0 MEDICAL JEWELL IMAGING W/INTERP& ASSOCIATE POSTPROC S DIFF WORK STATION URNLS DIP 13767 [facility] 0 [facility] STICK/TAB INC INC LET REAGENT AUTO MICROSCOP Y CT PELVIS 23483 [facility] MELANIE, W/O 0 MEDICAL JEWE[place] [address] [place] M[place], ABDOMEN 0 MEDICAL JEWELL W/O IMAGING CONTRAST ASSOCIATE MATERIAL S COLLECTIO 23381 [facility] N 0 PHYSICIAN KALEE CAPILLARY GROUP BLOOD PCC SPECIMEN BLOOD 92996 [facility] COUNT 0 PHYSICIAN KALEE HEMOGLOBI GROUP N PCC URINLS 99478 [facility] DIP 0 PHYSICIAN KALEE STICK/TAB GROUP LET PCC REAGNT NON-AUTO MICRSCPY URINALYSI 47515 [facility] HARPEL S 0 PHYSICIAN KALEE MICROSCOP GROUP IC ONLY PCC IMMUNOASS 26654 [facility] AY TUMOR 0 [facility] [place] [address] [facility]L TRANSVAGI 0 PHYSICIAN [place] [address] [facility] NON-IMMUN 0 [facility] OLOGIC OTH/THN CYTOPATHI C CYTP C/V 38743 [facility] AUTO THIN 0 [place] [facility] [employer] INC LYR PREPJ SCR MNL RESCR PHYS IADNA 27629 [facility] NEISSERIA 0 [facility] GONORRHOE AE AMPLIFIED PROBE TQ IADNA NOS 31497 SPECIALTY SPECIALTY 0 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 PROBE TQ IES INC IES INC EACH ORGANISM IADNA 51321 [facility] CHLAMYDIA 0 [employer] [facility] INC TRACHOMAT IS AMPLIFIED PROBE TQ RADIOLOGI 84356 Symone DELUCA EXAM 0 MEDICAL GARO P CHEST 2 IMAGING VIEWS ASSOCIATE FRONTAL&[place] [address] [facility] INFUSION 0 [facility] THERAPY/P INC INC ROPHYLAXI S /DX 1ST TO 1 HR URNLS DIP 52262 [facility] 9 [facility] STICK/TAB INC INC LET REAGENT AUTO MICROSCOP Y URINLS 65046 Janett RAO DIP 9 BRAYDEN LAWSON C STICK/TAB PSC LET REAGNT NON-AUTO MICRSCPY KO ELAST L1820 GRETA GRETA W/CONDYLR 9 SHIRLEY WATSON MD PADS&JNT PSC PSC PRFAB INCL FIT&[place] [address] [facility] ABDOMEN 9 [facility] W/O INC INC CONTRAST MATERIAL CULTURE 64711 [facility] BACTERIAL 9 [facility] INC INC QUANTTATI VE COLONY COUNT URINE CT PELVIS 06292 [facility] W/O 9 [facility] CONTRAST INC INC MATERIAL URNLS DIP 16368 [facility] 9 [facility] STICK/TAB INC INC LET REAGENT AUTO MICROSCOP Y 3D 48461 [facility] RENDERING 9 [facility] INC INC W/INTERP& POSTPROC DIFF WORK STATION Encounters Encounter Start End Date Code Location Performer Type Date EMERGENCY 94024 LIZ 7 7 [facility] DEPARTMEN INC T VISIT HIGH/URGE NT SEVERITY HOSPITAL LIZ Christopher 7 [facility] OUTPATIEN INC T EMERGENCY 25927 [facility] DE[facility] 7 7 PHYSICIAN VISIT [facility], PLL[facility] HIGH SEVERITY& THREAT [facility] EMERGENCY 72752 BEL DOSS DEPT 7 7 PHYSICIAN VISIT [facility] OUTPATIEN INC T EMERGENCY 15262 LIZ 7 7 [facility] DEPARTMEN INC T VISIT MODERATE SEVERITY HOSPITAL LIZ - 7 7 [facility] OUTPATIEN INC T OFFICE 45202 SCIFRES SCIFRES OUTPATIEN 6 6 ANG ANG T VISIT 10 MINUTES OFFICE 47696 JENNIFER RODRIGUEZ VIKA OUTPATIEN 6 6 T NEW 10 MINUTES EMERGENCY 91524 BEL [place]CL[place] 6 6 PHYSICIAN [facility] MODERATE SEVERITY OFFICE 77492 [facility] ELIAS OUTPATIEN 6 6 PHYSICIAN STONE T VISIT S GROUP PA-C MARC 15 MINUTES OFFICE 31881 [facility] ELIAS OUTPATIEN 6 6 PHYSICIAN STONE T VISIT S GROUP PA-C MARC 15 MINUTES OFFICE 82667 [facility] FRYMAN OUTPATIEN 6 6 PHYSICIAN EUG T VISIT S GROUP 15 MINUTES OFFICE 15763 [facility] SUDHAKAR OUTPATIEN 6 6 PHYSICIAN ABHAY T VISIT S GROUP 15 MINUTES OFFICE 44031 [facility] SUDHAKAR OUTPATIEN 6 6 PHYSICIAN ABHAY T VISIT S GROUP 15 MINUTES OFFICE 20566 [facility] ROEBL TOD CONSULTAT 6 6 PHYSICIAN ION S GROUP NEW/ESTAB PATIENT 30 MIN OFFICE 17222 [facility] SUDHAKAR OUTPATIEN 6 6 PHYSICIAN ABHAY T VISIT S GROUP 15 MINUTES OFFICE 06948 [facility] ELIAS OUTPATIEN 6 6 PHYSICIAN STONE T VISIT S GROUP PA-C MARC 10 MINUTES OFFICE 24082 [facility] SUDHAKAR OUTPATIEN 5 5 PHYSICIAN ABHAY T VISIT S GROUP 15 MINUTES OFFICE 68261 LIZ OUTPATIEN 5 5 [facility] 15 MINUTES EMERGENCY 34785 BEL [place] [facility] DEPT 5 5 PHYSICIAN ABHAY VISIT S, PLLC HIGH SEVERITY& THREAT [facility] LIZ - 5 5 [facility] OUTPATIEN INC T INITIAL 12461 JOHNATHON CAUSEY PREVENTIV 5 5 MARIUM Gilman MEDICINE NEW PT AGE 18-39YRS OFFICE 89691 [facility] SUDHAKAR OUTPATIEN 5 5 PHYSICIAN ABHAY T VISIT S GROUP 25 MINUTES EMERGENCY 35013 BEL JULIANEUGHN 5 5 PHYSICIAN [facility] S, PLL[facility] T VISIT HIGH/URGE NT SEVERITY OFFICE 03151 [facility] SUDHAKAR OUTPATIEN 5 5 PHYSICIAN ABHAY T VISIT S GROUP 10 MINUTES HOSPITAL LIZ - 5 5 [facility] OUTPATIEN INC T OFFICE 88798 [facility] SUDHAKAR OUTPATIEN 5 5 PHYSICIAN ABHAY T VISIT S GROUP 15 MINUTES OFFICE 86941 [facility] SUDHAKAR OUTPATIEN 5 5 PHYSICIAN ABHAY T VISIT S GROUP 15 MINUTES HOSPITAL LIZ - 5 5 [facility] OUTPATIEN INC T EMERGENCY 06615 [facility] 5 5 [facility] T VISIT P LOW/MODER SEVERITY OFFICE 97733 [facility] SUDHAKAR OUTPATIEN 5 5 PHYSICIAN ABHAY T VISIT S GROUP 10 MINUTES OFFICE 93943 [facility] PETTEY OUTPATIEN 5 5 PHYSICIAN JAM T VISIT S GROUP 25 MINUTES OFFICE 13322 [facility] SUDHAKAR OUTPATIEN 5 5 PHYSICIAN ABHAY T VISIT S GROUP 15 MINUTES OFFICE 28329 [facility] SUDHAKAR OUTPATIEN 5 5 PHYSICIAN ABHAY T NEW 20 S GROUP MINUTES OFFICE 62765 A C KAREN OUTJEANIE 4 4 BRAYDEN LAWSON JEJanett T VISIT PSC 15 MINUTES OFFICE 64817 A Symone JONES OUTJEANIE 4 4 BRAYDEN LAWSON JEA T VISIT PSC 15 MINUTES OFFICE 08014 PETERSON WINKLER JR OUTPATIEN 3 3 DWI DWI T VISIT 15 MINUTES EMERGENCY 22326 [facility] 3 3 [facility] T VISIT HIGH/URGE NT SEVERITY EMERGENCY 88537 [facility] 3 3 BRO BRO VISIT HIGH SEVERITY& THREAT [facility] - 3 3 [facility] LIZ - 3 3 [facility] OUTPATIEN INC T EMERGENCY 42469 LI[facility] 3 3 [facility] DEPARTMEN INC T VISIT LOW/MODER SEVERITY EMERGENCY 06162 SOKAN BAB SOKAN BAB 3 3 DEPARTMEN T VISIT MODERATE SEVERITY EMERGENCY 02706 DAVID Grande 3 3 EMERGENCY DEPARTMEN SERVICES T VISIT MODERATE SEVERITY EMERGENCY 10468 SUDHAKAR DE LA [facility] 3 3 [facility] DEPARTMEN T VISIT MODERATE SEVERITY EMERGENCY 87919 [facility] LOW/MODER SEVERITY [facility] - 3 3 [facility] T OFFICE 42279 PETERSON WINKLER [facility] 3 3 DWI DWI T VISIT 15 MINUTES EMERGENCY 31986 LIANA GAINES 3 3 III DERRICK III DERRICK DEPARTMEN T VISIT HIGH/URGE NT SEVERITY EMERGENCY 95159 [facility] 3 3 [facility] DEPART[facility] INC T VISIT MODERATE SEVERITY HOSPITAL LIZ - 3 3 [facility] OUTPATIEN INC T EMERGENCY 65687 LIANA GAINES DEPT 2 2 III DERRICK III DERRICK VISIT HIGH SEVERITY& THREAT FUNCJ EMERGENCY 70103 DAVID HOBSON 2 2 EMERGENCY DERRICK DEPARTMEN SERVICES T VISIT MODERATE SEVERITY EMERGENCY 01320 DAVID GÓMEZ 2 2 EMERGENCY DEPARTMEN SERVICES T VISIT HIGH/URGE NT SEVERITY HOSPITAL [facility] - 2 2 [facility] OUTPAT[facility]EN INC T EMERGENCY 23649 LIANA RAMOSMAN 2 2 III DERRICK III DERRICK DEPARTMEN T VISIT HIGH/URGE NT SEVERITY EMERGENCY 53084 LIZ 2 2 [facility] LOW/MODER SEVERITY OFFICE 65742 MAMIE HATCH ARTURO OUTPATIEN 2 2 T NEW 20 MINUTES HOSPITAL LIZ - 2 2 [facility] OUTPATIEN INC T OFFICE 30126 PETERSON WINKLER JR OUTPATIEN 2 2 DWI DWI T VISIT 15 MINUTES EMERGENCY 62679 LIANA RAMOSMAN 2 2 III DERRICK III [facility] T VISIT HIGH/URGE NT SEVERITY HOSPITAL LIZ - 2 2 [facility] T OFFICE 13805 PETTEY PETTEY OUTPATIEN 2 2 JAM JAM T VISIT 15 MINUTES HOSPITAL LIZ - 2 2 [facility] T OFFICE 99089 PETTEY PETTEY OUTPATIEN 2 2 JAM JAM T VISIT 15 MINUTES HOSPITAL LIZ - 2 2 [facility]PATIEN [facility] T OFFICE 69265 PETTEY PETTEY OUTPATIEN 2 2 JAM JAM T VISIT 15 MINUTES OFFICE 09813 PETERSON JR PETERSON JR OUTPATIEN 2 2 DWI DWI T VISIT 15 MINUTES OFFICE 65223 PETERSON JR PETERSON JR OUTPATIEN 2 2 DWI DWI T VISIT 15 MINUTES OFFICE 83326 PETERSON JR PETERSON JR OUTPATIEN 2 2 DWI DWI T VISIT 15 MINUTES OFFICE 89486 PETERSON DWI PETERSON DWI OUTPATIEN 2 2 T VISIT 15 MINUTES OFFICE 05145 PETERSON JR PETERSON JR OUTPATIEN 2 2 DWI DWI T VISIT 15 MINUTES HOSPITAL LIZ - 1 1 [facility] OUTPATIEN INC T EMERGENCY 71266 LI[facility] 1 1 [facility]IS[facility] LOW/MODER SEVERITY EMERGENCY 34060 HERNANDEZ KEYUR HERNANDEZ KEYUR 1 1 DEPARTMEN T VISIT MODERATE SEVERITY OFFICE 05349 PETERSON SASKIA PETERSON DWI OUTPATIEN 1 1 T VISIT 15 MINUTES EMERGENCY 85726 LIANA GAINES 1 1 III DERRICK III [facility] T VISIT HIGH/URGE NT SEVERITY HOSPITAL LIZ - 1 1 [facility] OUTPATIEN INC T EMERGENCY 46539 [facility] T VISIT LIMITED/M INOR PROB OFFICE 77732 PETTEMily PETTEY OUTPATIEN 1 1 JAM JAM T NEW 30 MINUTES OFFICE 38535 PETERSON WINKLER JR OUTPATIEN 1 1 DWI DWI T VISIT 15 MINUTES HOSPITAL LIZ - 1 1 [facility] OUT[facility] INC T EMERGENCY 20753 HERNANDEZ KEYUR HERNANDEZ KEYUR 1 1 [facility] HIGH/URGE NT SEVERITY EMERGENCY 82359 [facility] T VISIT LOW/MODER SEVERITY OFFICE 35080 PETERSON WINKLER JR OUTPATIEN 1 1 DWI DWI T VISIT 15 MINUTES HOSPITAL LIZ - 1 1 [facility] OUT[facility] INC T EMERGENCY 74495 [facility] T VISIT LIMITED/M INOR PROB EMERGENCY 38225 DAVID GAINES 1 1 EMERGENCY III [facility] SERVICES T VISIT MODERATE SEVERITY OFFICE 89030 ELFE[facility] TELLES OUTPATIEN 1 1 KEYUR KEYUR T NEW 10 MINUTES EMERGENCY 87177 DAVID COOLEY 1 1 EMERGENCY [facility] SERVICES T VISIT HIGH/URGE NT SEVERITY EMERGENCY 19045 [facility] 1 1 [facility] T VISIT LOW/MODER SEVERITY [facility] - [facility] 1 [facility] - [facility] 1 [facility] T EMERGENCY 79121 [facility] 1 1 [facility] INC T VISIT LOW/MODER SEVERITY [facility] - [facility] 1 [facility] INC T EMERGENCY 24532 [facility] 1 1 [facility] T VISIT LIMITED/M INOR PROB [facility]OSPITAL [facility] - 1 1 [facility] INC T EMERGENCY 14227 LIZ 1 1 [facility] INC T VISIT LOW/MODER SEVERITY [facility]OSPITAL LIZ - 1 1 [facility] INC T EMERGENCY 02895 DAVID GAINES 1 1 [facility]GENCY III [facility] VISIT MODERATE SEVERITY EMERGENCY 66756 LIZ 1 1 [facility] INC T VISIT LIMITED/M INOR PROB OFFICE 32131 PETERSON KRUGER OUTPATIEN 1 1 [facility] T VISIT 15 MINUTES EMERGENCY 44411 DAVID GAINES 1 [facility]URGE NT SEVERITY [facility] - [facility] 1 [facility] OUT[facility] INC T EMERGENCY 56942 [facility] 1 1 [facility] DE[facility] INC T VISIT LOW/MODER SEVERITY [facility]OSPITAL [facility] - 1 1 [facility] OUT[facility] INC T EMERGENCY 46834 [facility]Z 1 1 [facility] DEPART[facility] INC T VISIT MODERATE SEVERITY EMERGENCY 11921 DAVID OLIVARES 1 1 EMERGENCY [facility] SERVICES T VISIT HIGH/URGE NT SEVERITY OFFICE 89002 PETERSON WINKLER DWI OUTPATIEN 1 1 [facility] T VISIT 15 MINUTES OFFICE 78110 [facility] OUTPATIEN 1 1 PHYSICIAN KALEE T VISIT GROUP 15 PCC MINUTES EMERGENCY 79280 [facility]IS[facility] LOW/MODER SEVERITY [facility] - 1 1 [facility] T EMERGENCY 65772 DAVID GAINES 1 1 EMERGENCY III [facility] SERVICES T VISIT HIGH/URGE NT SEVERITY EMERGENCY 50577 LIZ 1 1 [facility] T VISIT LIMITED/M INOR PROB HOSPITAL LIZ - 1 1 [facility] T EMERGENCY 49809 DAVID DE LA FUENTE 1 1 [facility]IS[facility] HIGH/URGE NT SEVERITY EMERGENCY 81262 DAVID HERNANDEZ KEYUR 1 1 EMERGENCY [facility] SERVICES T VISIT HIGH/URGE NT SEVERITY HOSPITAL LIZ - 1 1 [facility] T EMERGENCY 18301 LIZ 1 1 [facility] T VISIT LOW/MODER SEVERITY EMERGENCY 92960 [place] 1 1 [facility] T VISIT LOW/MODER SEVERITY EMERGENCY 36319 DAVID MAYO 1 1 [facility] T VISIT MODERATE SEVERITY HOSPITAL [place] - 1 1 [facility] T EMERGENCY 77450 DAVID OLIVARES 1 1 [facility] T VISIT MODERATE SEVERITY [facility] - 1 1 [facility] T OFFICE 41120 PETERSON WINKLER [facility]I OUTPATIEN 1 1 [facility] T VISIT 15 MINUTES EMERGENCY 04655 DAVID HERNANDEZ KEYUR 1 1 [facility] T VISIT HIGH/URGE NT SEVERITY [facility]OSP[facility] - 1 1 [facility] T EMERGENCY 23561 [facility]Z 1 1 [facility] INC T VISIT LOW/MODER SEVERITY EMERGENCY 05444 [facility] 1 1 [facility] DE[facility] INC T VISIT MODERATE SEVERITY EMERGENCY 99336 DAVID MANZANO 1 1 [facility] HIGH/URGE NT SEVERITY [facility] - 1 1 [facility] T HOSPITAL LIZ - 1 1 [facility] T EMERGENCY 30009 LIZ 1 1 [facility] INC T VISIT LOW/MODER SEVERITY EMERGENCY 41533 DAVID DE LA FUENTE 1 1 EMERGENCY [facility] SERVICES T VISIT HIGH/URGE NT SEVERITY EMERGENCY 26823 DAVID BAER 1 1 EMERGENCY DEPARTMEN SERVICES T VISIT MODERATE SEVERITY HOSPITAL LIZ - 1 1 [facility] T EMERGENCY 07525 LIZ 1 1 [facility] INC T VISIT LOW/MODER SEVERITY OFFICE 23255 PETERSON WINKLER DWI OUTPATIEN 1 1 [facility] T VISIT 15 MINUTES EMERGENCY 02519 LIZ 1 1 [facility] T VISIT MODERATE SEVERITY HOSPITAL LIZ - 1 1 [facility] T EMERGENCY 92277 DAVID DE LA FUENTE 1 1 EMERGENCY [facility] DEPARTMEN SERVICES T VISIT HIGH/URGE NT SEVERITY OFFICE 71319 PETERSON WINKLER DWI OUTPATIEN 1 1 [facility] T VISIT 15 MINUTES EMERGENCY 98595 LIZ 1 1 [facility] T VISIT MODERATE SEVERITY [facility]OSP[facility] LIZ - 1 1 [facility] T EMERGENCY 47731 DAVID GAINES 1 1 EMERGENCY III [facility] DEPARTMEN SERVICES T VISIT HIGH/URGE NT SEVERITY EMERGENCY 67139 LIZ 1 1 [facility] INC T VISIT MODERATE SEVERITY EMERGENCY 40061 DAVID BAER 1 1 [facility] HIGH/URGE NT SEVERITY [facility]OSP[facility] LIZ - 1 1 [facility] T OFFICE 99185 PETERSON WINKLER DWI OUTPATIEN 1 1 [facility] T VISIT 15 MINUTES HOSPITAL LIZ - 1 1 [facility] T EMERGENCY 68456 LIZ 1 1 [facility] DE[facility] INC T VISIT LOW/MODER SEVERITY EMERGENCY 62883 DAVID OLIVARES 1 1 EMERGENCY DEPARTMEN SERVICES T VISIT MODERATE SEVERITY OFFICE 06123 LIZ JADE OUTPATIEN 1 1 [facility] T VISIT HOSPITAL 25 P MINUTES HOSPITAL [place] - 1 1 [facility] 54088 [place] 1 1 [facility] H[facility]PITAL T VISIT MODERATE SEVERITY EMERGENCY 08716 DAVID DE LA FUENTE 1 1 EMERGENCY [facility] DEPARTMEN SERVICES T VISIT HIGH/URGE NT SEVERITY EMERGENCY 08956 LIZ 1 1 [facility] INC T VISIT LOW/MODER SEVERITY HOSPITAL LIZ - 1 1 [facility] T OFFICE 44972 PETERSON WINKLER DWI OUTPATIEN 1 1 [facility] T VISIT 15 MINUTES OFFICE 86925 PETERSON WINKLER DWI OUTPATIEN 1 1 [facility] T VISIT 15 MINUTES HOSPITAL LIZ - 1 1 [facility] T OFFICE 84726 AMARILIS OLMOS OUTPATIEN 1 1 MARIANA MARIANA T VISIT 15 MINUTES EMERGENCY 11511 DAVID GAINES 1 1 EMERGENCY III [facility] DEPARTMEN SERVICES T VISIT HIGH/URGE NT SEVERITY HOSPITAL LIZ - 1 1 [facility] T OFFICE 38951 Janett OWEN A OUTPATIEN 1 1 [facility] LAWSON T VISIT PSC 15 MINUTES EMERGENCY 31951 LIZ 1 1 [facility]MEN INC T VISIT LOW/MODER SEVERITY OFFICE 45671 PETERSON WINKLER DWI OUTPATIEN 1 1 [facility] T VISIT 15 MINUTES OFFICE 15371 [facility], OUTPATIEN 1 1 IMPLANT & III VINICIO T NEW 20 ORAL MINUTES SURGERY C EMERGENCY 28408 [facility]IS[facility] MODERATE SEVERITY EMERGENCY 16904 DAVID OLIVARES 1 1 EMERGENCY DEPARTMEN SERVICES T VISIT HIGH/URGE NT SEVERITY HOSPITAL LIZ - 1 1 [facility] T OFFICE 82256 PETERSON WINKLER DWI OUTPATIEN 1 1 [place] T VISIT 15 MINUTES OFFICE 48646 [facility] 1 1 NEUROLOGY [facility] NEW/ESTAB KARISHMA PATIENT 80 MIN OFFICE 08685 PETERSON WINKLER DWI OUTPATIEN 1 1 [facility] T VISIT 15 MINUTES HOSPITAL LIZ - 1 1 [facility] T OFFICE 90237 PETERSON WINKLER DWI OUTPATIEN 1 1 [place] T VISIT 15 MINUTES OFFICE 75705 [facility] MARIUM OUTPATIEN 1 1 PHYSICIAN KALEE T VISIT GROUP 15 PCC MINUTES EMERGENCY 55466 DAVID BAER 1 1 EMERGENCY DEPARTMEN SERVICES T VISIT HIGH/URGE NT SEVERITY HOSPITAL LIZ - 1 1 [facility] T EMERGENCY 34263 LIZ 1 1 [facility] DEPARTMEN INC T VISIT MODERATE SEVERITY HOSPITAL LIZ - 1 1 [facility] T OFFICE 13820 [facility] OUTPATIEN 1 1 [facility] T VISIT 5 CENTER CENTER MINUTES OFFICE 37350 LI[facility] OUTPATIEN 1 1 [facility] T NEW 10 CENTER CENTER MINUTES OFFICE 06130 [facility] OUTPATIEN 1 1 PHYSICIAN KALEE T VISIT GROUP 15 PCC MINUTES OFFICE 30569 PETERSON WINKLER DWI OUTPATIEN 1 1 [place] T VISIT 25 MINUTES EMERGENCY 82992 LIZ 1 1 [facility] DEPART[facility] INC T VISIT LOW/MODER SEVERITY EMERGENCY 85945 DAVID OLIVARES 1 1 EMERGENCY DEPARTMEN SERVICES T VISIT HIGH/URGE NT SEVERITY HOSPITAL LIZ - 1 1 [facility] OUTPATIEN INC T OFFICE 27820 PETERSON WINKLER DWI OUTPATIEN 1 1 [facility] T VISIT 15 MINUTES HOSPITAL LIZ - 1 1 [facility] INC T OFFICE 72430 [facility] OUTPATIEN 0 0 PHYSICIAN KALEE T VISIT GROUP 15 PCC MINUTES OFFICE 54010 PETERSON WINKLER DWI OUTPATIEN 0 0 [facility] T VISIT 15 MINUTES OFFICE 48835 PETERSON WINKLER DWI OUTPATIEN 0 0 [facility] T VISIT 15 MINUTES OFFICE 34595 PETERSON PETERSON DWI OUTPATIEN 0 0 [facility] T VISIT 15 MINUTES OFFICE 71403 PETERSON PETERSON DWI OUTPATIEN 0 0 [facility] T VISIT 15 MINUTES HOSPITAL LIZ - 0 0 [facility] T [facility] LIZ - 0 0 [facility] INC T EMERGENCY 41215 DAVID FRANKELCHARBEL BAB 0 0 EMERGENCY DEPARTMEN SERVICES T VISIT HIGH/URGE NT SEVERITY EMERGENCY 26123 LIZ 0 0 [facility] DEPARTMEN INC T VISIT LOW/MODER SEVERITY OFFICE 00920 A Symone Rowland OUTPATIEN 0 0 [facility] LAWSON T VISIT PSC 15 MINUTES OFFICE 19821 LINDSAY MONTOYA OUTPATIEN 0 0 SILVIA SILVIA T VISIT 15 MINUTES EMERGENCY 52669 DAVID ANTOINE AND 0 0 EMERGENCY DEPARTMEN SERVICES T VISIT HIGH/URGE NT SEVERITY [facility] LIZ - 0 0 [facility] OUTPATIEN INC T EMERGENCY 52322 LIZ 0 0 [facility] DEPARTMEN INC T VISIT LIMITED/M INOR PROB OFFICE 32043 PETERSON KRUGER OUTPATIEN 0 0 [place] T VISIT 15 MINUTES OFFICE 64208 A Symone Rowland OUTPATIEN 0 0 [facility] LAWSON T VISIT PSC 15 MINUTES OFFICE 98442 PETERSON KRUGER OUTPATIEN 0 0 [facility] T VISIT 15 MINUTES OFFICE 14556 [facility]UM OUTPATIEN 0 0 PHYSICIAN KALEE T VISIT GROUP 15 PCC MINUTES OFFICE 28208 Janett FRAZIER OUTPATIEN 0 0 [facility] MARIANA T VISIT PSC 15 MINUTES OFFICE 11340 MARIELENA ANTONIO 0 0 [facility] MORRIS E T VISIT EMD 15 MINUTES OFFICE 65756 LINDSAY MONTOYA OUTPATIKAITLIN 0 0 SILVIA VEGA A T VISIT 15 MINUTES OFFICE 88347 MARIELENA ANTONIO 0 0 [facility] MORRIS E T VISIT EMD 15 MINUTES EMERGENCY 46678 DAVID CARTER, 0 0 EMERGENCY [facility] DEPARTMEN SERVICES O T VISIT HIGH/URGE ASSOCIATE NT S SEVERITY HOSPITAL LIZ - 0 0 [facility] OUTPAT[facility] INC T EMERGENCY 37557 LIZ 0 0 [facility] DEPARTMEN INC T VISIT LIMITED/M INOR PROB OFFICE 51509 LINDSAY MONTOYA OUTPATIEN 0 0 SILVIA A SILVIA A T VISIT 15 MINUTES OFFICE 63900 MARIELENA ANTONIO 0 0 [facility] MORRIS E T VISIT EMD 15 MINUTES EMERGENCY 28902 LIZ 0 0 [facility] DEPARTMEN INC T VISIT LOW/MODER SEVERITY EMERGENCY 32297 DAVID DE LA FUENTE, 0 0 EMERGENCY [facility] DEPARTMEN SERVICES T VISIT HIGH/URGE ASSOCIATE NT S SEVERITY HOSPITAL LIZ - 0 0 [facility] OUTPATIEN INC T EMERGENCY 13376 LIZ 0 0 [facility] DEPARTMEN INC T VISIT LOW/MODER SEVERITY [facility]OSPITAL LIZ - 0 0 [facility] OUTPATIEN INC T EMERGENCY 32706 DAVID GAINES 0 0 EMERGENCY III, DEPARTMEN SERVICES BECKY T VISIT HIGH/URGE ASSOCIATE NT S SEVERITY OFFICE 60752 LINDSAY MONTOYA OUTPATIEN 0 0 SILVIA A SILVIA A T VISIT 15 MINUTES OFFICE 41856 MARIELENA ANTONIO 0 0 [facility] MORRIS E T VISIT EMD 15 MINUTES EMERGENCY 04973 LIZ 0 0 [facility] DEPARTMEN INC T VISIT LIMITED/M INOR PROB HOSPITAL LIZ - 0 0 [facility] OUTPATIEN INC T EMERGENCY 39414 DAVID CARTER, 0 0 EMERGENCY [facility] DEPARTMEN SERVICES O T VISIT HIGH/URGE ASSOCIATE NT S SEVERITY OFFICE 06713 MARIELENA ANTONIO 0 0 [facility] MORRIS E T VISIT EMD 15 MINUTES HOSPITAL LIZ - 0 0 [facility] OUTPATIEN INC T OFFICE 50040 HARSH ANTONIOPATIEN 0 0 [facility] MORRIS E T VISIT EMD 15 MINUTES OFFICE 77080 [facility] RAY OUTPATIEN 0 0 PHYSICIAN KALEE T VISIT GROUP 15 PCC MINUTES OFFICE 35697 HARSH ANTONIOPATIEN 0 0 [facility]IS MORRIS E T VISIT EMD 15 MINUTES OFFICE 13988 PETERSON WINKLER OUTPATIEN 0 0 [facility] MORRIS E T VISIT EMD 15 MINUTES EMERGENCY 83753 LIZ 0 0 [facility] DEPARTMEN INC T VISIT LIMITED/M INOR PROB HOSPITAL LIZ - 0 0 [facility] OUTPATIEN INC T EMERGENCY 29360 DAVID GAINES 0 0 EMERGENCY III, DEPARTMEN SERVICES BECKY T VISIT HIGH/URGE ASSOCIATE NT S SEVERITY OFFICE 28407 Janett RAOPATIEN 0 0 BRAYDEN Ashby T VISIT PSC 15 MINUTES OFFICE 03288 LINDSAY MONTOYA OUTPATIEN 0 0 SILVIA Rowland T VISIT 15 MINUTES EMERGENCY 91966 DAVID DE LA FUENTE, 0 0 EMERGENCY [facility] DEPARTMEN SERVICES T VISIT HIGH/URGE ASSOCIATE NT S SEVERITY EMERGENCY 47346 LIZ 0 0 [facility] DEPARTMEN INC T VISIT LIMITED/M INOR PROB HOSPITAL LIZ - 0 0 [facility] OUTPATIEN INC T OFFICE 50638 Janett RAOPATIEN 0 0 BRAYDNE Ashby T VISIT PSC 15 MINUTES OFFICE 47494 [facility] MARIUM OUTPATIEN 0 0 PHYSICIAN KALEE T VISIT GROUP 15 PCC MINUTES HOSPITAL LIZ - 0 0 [facility] OUTPAT[facility]EN INC T [facility]OSPITAL LIZ - 0 0 [facility]PAT[facility] INC T OFFICE 07863 [facility] OUTPATIEN 0 0 PHYSICIAN KALEE T VISIT GROUP 15 PCC MINUTES EMERGENCY 18570 LIZ 0 0 [facility] DEPARTMEN INC T VISIT LIMITED/M INOR PROB EMERGENCY 05457 DAVID CARTER, 0 0 EMERGENCY [facility] DEPARTMEN SERVICES O T VISIT MODERATE ASSOCIATE SEVERITY S OFFICE 52184 MARIELENA ANTONIO 0 0 [facility] MORRIS E T VISIT EMD 15 MINUTES HOSPITAL LIZ - 0 0 [facility] OUTPAT[facility]EN INC T [facility]OSP[facility] LIZ - 0 0 [facility] OUTPATIEN INC T OFFICE 91206 MARIELENA ANTONIO 0 0 [facility] MORRIS E T VISIT EMD 15 MINUTES HOSPITAL LIZ - 0 0 [facility] OUTPATIEN INC T EMERGENCY 08809 DAVID SUDHAKAR, 0 0 [facility] HIGH/URGE ASSOCIATE NT S SEVERITY OFFICE 83333 [facility] OUTPATIEN 0 0 PHYSICIAN KALEE T VISIT GROUP 15 PCC MINUTES HOSPITAL LIZ - 0 0 [facility] OUTPATIEN INC T EMERGENCY 64601 LIZ 0 0 [facility] DEPARTMEN INC T VISIT LOW/MODER SEVERITY [facility]OSPITAL LIZ - 0 0 [facility] OUTPATIEN INC T OFFICE 95798 MARIELENA ANTONIO 0 0 [facility] MORRIS E T VISIT EMD 15 MINUTES HOSPITAL LIZ - 0 0 [facility] OUTPATIEN INC T OFFICE 80368 MARIELENA ANTONIO 0 0 [facility] MORRIS E T VISIT EMD 15 MINUTES OFFICE 13685 [facility] OUTPATIEN 0 0 PHYSICIAN KALEE T VISIT GROUP 15 PCC MINUTES HOSPITAL LIZ - 0 0 [facility] OUTPATIEN INC T EMERGENCY 97741 LIZ 0 0 [facility] DEPARTMEN INC T VISIT LIMITED/M INOR PROB EMERGENCY 69642 DAVID CARTER, 0 0 EMERGENCY [facility] DEPARTMEN SERVICES O T VISIT HIGH/URGE ASSOCIATE NT S SEVERITY [facility]OSPITAL LIZ - 0 0 [facility] OUTPATIEN INC T OFFICE 05924 MARIELENA ANTONIO 0 0 [facility] MORRIS E T VISIT EMD 15 MINUTES HOSPITAL LIZ - 0 0 [facility] OUTPATIEN INC T [facility]PITAL LIZ - 0 0 [facility] OUTPATIEN INC T OFFICE 42107 MARIELENA ANTONIO 0 0 [facility] MORRIS E T VISIT EMD 15 MINUTES EMERGENCY 24332 DAVID DE LA FUENTE, DEPT 0 0 EMERGENCY [facility] S VISIT SERVICES HIGH SEVERITY& ASSOCIATE THREAT S [facility] EMERGENCY 24470 LIZ 0 0 [facility] DEPARTMEN INC T VISIT LOW/MODER SEVERITY [facility]OSPITAL LIZ - 0 0 [facility] OUTPATIEN INC T OFFICE 96610 MARIELENA ANTONIO 9 9 MORRIS MORRIS E T VISIT EMD 15 MINUTES EMERGENCY 06651 LIZ 9 9 [facility] DEPARTMEN INC T VISIT LIMITED/M INOR PROB EMERGENCY 59570 DAVID GAINES 9 9 EMERGENCY III, DEPARTMEN SERVICES BECKY T VISIT HIGH/URGE ASSOCIATE NT S SEVERITY HOSPITAL LIZ - 9 9 [facility] OUTPATIEN INC T EMERGENCY 68165 DAVID KERN 9 9 EMERGENCY , [facility] DEPARTMEN SERVICES T VISIT MODERATE ASSOCIATE SEVERITY S OFFICE 21993 MARIELENA ANTONIO 9 9 [facility]ORRIS E T VISIT EMD 15 MINUTES HOSPITAL LIZ - 9 9 [facility] INC T EMERGENCY 04250 LIZ 9 9 [facility] DEPARTMEN INC T VISIT LOW/MODER SEVERITY EMERGENCY 71781 DAVID DE LA FUENTE, 9 9 EMERGENCY [facility] SERVICES T VISIT MODERATE ASSOCIATE SEVERITY S HOSPITAL LIZ - 9 9 [facility] INC T EMERGENCY 32163 LIZ 9 9 [facility]/M INOR PROB EMERGENCY 80572 DAVID CARTER, 9 9 [facility] HIGH/URGE ASSOCIATE NT S SEVERITY OFFICE 98790 MARIELENA ANTONIO 9 9 [facility] MORRIS E T VISIT EMD 15 MINUTES HOSPITAL LIZ - 9 9 [facility]PAT[facility] INC T EMERGENCY 25901 DAVID DE LA FUENTE, 9 9 EMERGENCY [facility] SERVICES T VISIT HIGH/URGE ASSOCIATE NT S SEVERITY EMERGENCY 99785 LIZ 9 9 [facility]ISIT LIMITED/M INOR PROB OFFICE 32437 MARIELENA HERRERA 9 9 CARE R DEON T VISIT ASSOCIATE 15 S MINUTES OFFICE 12646 MARIELENA ANTONIO 9 9 [facility]IS MORRIS E T NEW 45 EMD MINUTES EMERGENCY 46859 LIZ 9 9 [facility] DEPARTMEN INC T VISIT LIMITED/M INOR PROB EMERGENCY 53551 DAVID MARCUS, 9 9 [facility]IT MODERATE ASSOCIATE SEVERITY S HOSPITAL LIZ - 9 9 [facility] INC T OFFICE 05641 Janett RAO 9 9 BRAYDEN Ashby T VISIT PSC 15 MINUTES OFFICE 38642 JOSE ANTONIO BRADY OUTPATIEN 9 9 [facility]TA PINEDA[facility]O T VISIT 40 MINUTES EMERGENCY 86326 DAVID CARTER, 9 9 EMERGENCY [facility] DEPARTMEN SERVICES O T VISIT MODERATE ASSOCIATE SEVERITY [facility] LIZ - 9 9 [facility] OUTPATIEN INC T EMERGENCY 56967 LIZ 9 9 [facility] DEPARTMEN INC T VISIT LIMITED/M INOR PROB HOSPITAL LIZ - 9 9 [facility] OUTPATIEN INC T EMERGENCY 38382 DAVID TEJADA, 9 9 EMERGENCY [facility] DEPARTMEN SERVICES T VISIT MODERATE ASSOCIATE SEVERITY [facility] LIZ - 9 9 [facility] OUTPATIEN INC T EMERGENCY 44169 LIZ 9 9 [facility] DEPARTMEN INC T VISIT LOW/MODER SEVERITY HOSPITAL LIZ - 9 9 [facility] OUTPATIEN INC T EMERGENCY 31025 LIZ 9 9 [facility] DEPARTMEN INC T VISIT LOW/MODER SEVERITY HOSPITAL LIZ - 9 9 [facility] OUTPATIEN INC T [facility]OSPITAL LIZ - 9 9 [facility] OUTPATIEN INC T EMERGENCY 30841 LIZ 9 9 [facility] DEPARTMEN INC T VISIT LIMITED/M INOR PROB OFFICE 64807 LINDSAY MONTOYA OUTPATIEN 9 9 SILVIA Rowland T VISIT 15 MINUTES
--- OUTSIDE RECORDS SUMMARY | 2017-03-22 22:05 | External Medical Summary Rpt ---
Demographics Preferred Language Spanish Marital Status Unknown Sikh Affiliation Unknown Race Unknown Ethnic Group Unknown Author Author ARUN Address Unknown Phone Immunization No patient found.
--- OUTSIDE RECORDS SUMMARY | 2017-03-22 22:05 | External Medical Summary Rpt ---
Demographics Preferred Language Filipino Marital Status Unknown Mormonism Affiliation Unknown Race Unknown Ethnic Group Unknown Author Author ARUN Address Unknown Phone Immunization No patient found.
== END 2017-03-22 12:28 | disposition home or self-care (01) ==
LOC: UTC 11:40
DX: B35.3 Tinea pedis (principal); I10 Essential (primary) hypertension

== ENCOUNTER 2017-06-19 17:12 | Emergency (ER) | payer MEDICAID ==
[~2017-06-19] VITALS: Ht 165.1 cm; Wt 68.0 kg
[~2017-06-19 17:12] MED LIST changes: +MICONAZOLE45 GM/TUB1 TP; +SUBOXONE 8 MG-21 FIL SL
--- OUTSIDE RECORDS SUMMARY | 2017-06-19 17:18 | External Medical Summary Rpt | CCD ---
Author Author , ARUN Organization ARUN Address Unknown Phone [email or web address] Care Team Providers Care Record Librarian Name Role Phone Paul Mena MD, Unavailable Unavailable Paul FELIZ MD, Unavailable Unavailable MAMIE Clark MD, Unavailable Unavailable Marisela Ibarra MD, Unavailable Unavailable Yaneth HARTMAN MD, Unavailable Unavailable SUDHA HARTMAN MD Purpose Continuity of Care Document - 11-20-2012 through 2016 Problems Code Diagnosis DOS Provider Status 305.1 305.1 07-03-2013 [place] TOBACCO USE [facility] DISORDER [facility] 305.50 305.50 07-03-2013 [place] OPIOID [facility] C 401.9 401.9 07-03-2013 [place] HYPERTENSIO [facility] N NOS [facility] 780.2 780.2 07-03-2013 [place] SYNCOPE AND [facility] COLLAPSE Hospital 786.50 786.50 07-03-2013 [place] CHEST PAIN [facility] V14.0 V14.0 07-03-2013 [place] HX-PENICILL [facility] IN ALLERGY Hospital 592.0 592.0 05-07-2013 [place] CALCULUS OF [facility] KIDNEY [facility] 840.8 840.8 04-11-2013 [facility] SHOULDER/AR Hospital [facility] E849.0 E849.0 04-11-2013 [place] ACCIDENT IN [facility] E927.0 E927.0 04-11-2013 [place] OVEREXERTIO [facility] N FROM Hospital SUDDEN STRENUOUS MOVEMENT 846.9 846.9 03-08-2013 [facility] SACROILIAC [facility] NOS V13.01 V13.01 03-08-2013 [place] PERSONAL [facility] HISTORY OF Hospital URINARY CALCULI 462 462 ACUTE 11-20-2012 [place] PHARYNGITIS [facility] R07.89 OTHER CHEST PAIN R09.1 PLEURISY Allergies, [...] ia de te s n re d SO 00 02 0 No DI 40 -2 UM 97 4- Lo 98 20 ng CH 30 14 er LO 9 RI Ac DE ti ve 0. 9% SO TYLER TI ON ME 00 02 0 No TO 40 -2 CL 93 4- Lo OP 41 20 ng RA 40 14 er NV 1 DE Ac ti 10 ve MG [...] ti MG ve CA PS UL E Vital Signs 10-09-2013 18:58 Name Value Interpretat [...] Order Detail nces retati t Range on Serum or plasma 25-hydroxyvitamin D andrés (06-11-2017 11:20) Serum = 31.9 30.0-10 complet or 017 ng/mL 0.0 ed plasma 11:20 25-hydr oxyvita min D andrés Comment: Vitamin D deficiency has been defined by the [place] of Comment: Medicine and an Endocrine Society practice guideline as a Comment: level of serum 25-OH vitamin D less than 20 ng/mL (1,2). Comment: The Endocrine Society went on to further define vitamin D Comment: insufficiency as a level between 21 and 29 ng/mL (2). Comment: 1. IOM ([place] of Medicine). 2010. Dietary reference Comment: intakes for calcium and D. [place]: The Comment: National AcademBeanstalk Tax Press. Comment: 2. Kassidy MF, Arun NC, Valencia REYES, et al. Comment: Evaluation, treatment, and prevention of vitamin D Comment: deficiency: an Endocrine Society clinical practice Comment: guideline. JCEM. 2010; 96(7):1911-30. Comment: Performed at: - [facility] Comment: [id number], [place], [place] [id number] Comment: Violin Tutor: Nikhil Moore PhD, Phone: [phone] CBC w auto diff (06-11-2017 11:20) Blood = 8.5 4.8-10. complet leukocy 017 K/MM3 8 ed macey 11:20 count (number /volume ) Automat = 13.1 11.5-17 complet ed 017 % .5 ed erythro 11:20 cyte distrib ution width Red = 4.57 4.2-5.4 complet blood 017 M/mm3 ed cell 11:20 count Blood = 250 142-424 complet platele 017 K/mm3 ed t count 11:20 Automat = 9.2 7.4-10. complet ed 017 fl 4 ed blood 11:20 platele t mean volume vernon [place] % = 5.5 % 1.7-9.3 complet 017 ed 11:20 Absolut = 0.5 0.1-1.0 complet e 017 K/mm3 ed monocyt 11:20 e count Automat = 85.3 82.2-97 complet ed 017 fl .8 ed erythro 11:20 cyte mean corpusc ular v Automat = 33.3 31.8-35 complet ed 017 g/dl .4 ed erythro 11:20 cyte mean corpusc ular h Mean = 28.4 27-31.2 complet corpusc 017 pg ed ular 11:20 hemoglo bin ([facility]) determ Lymphoc = 26.1 10-50.0 complet yte 017 % ed count, 11:20 blood, automat ed Absolut = 2.2 0.7-4.5 complet e 017 K/mm3 ed lymphoc 11:20 yte count Blood = 13.0 12.2-16 complet hemoglo 017 g/dL .2 ed bin 11:20 measure ment (mass/v olum Blood = 39.0 37.0-47 complet hematoc 017 % .0 ed rit 11:20 (volume fractio n) Granulo = 66.9 37.0-80 complet cyte 017 % .0 ed percent 11:20 age Blood = 5.7 1.8-7.8 complet granulo 017 K/mm3 ed cytes 11:20 automat ed count (numb Automat = 0.8 % 0.1-12. complet ed 017 0 ed blood 11:20 eosinop hils/10 0 leukocy t Automat = 0.1 0.0-0.4 complet ed 017 K/mm3 ed blood 11:20 eosinop hil count Baso % = 0.9 % 0.1-2.0 complet 017 ed 11:20 Automat = 0.1 0-0.2 complet ed 017 K/MM3 ed blood 11:20 basophi l count (count/ vo Hemoglobin A1c measurement (06-11-2017 11:20) Hemoglo 5.8 % 0.0-7.0 complet bin A1c 017 ed 11:20 Comment: < 6% NON-DIABETIC LEVEL Comment: < 7% CONTROLLED DIABETIC LEVEL Comment: > 8% POORLY CONTROLLED DIABETIC LEVEL Serum or plasma thyroid stimulating horm (06-11-2017 11:20) Serum = 0.83 0.358-3 complet or 017 uIU/ml .740 ed plasma 11:20 thyroid stimula ting horm Lipid profile (06-11-2017 11:20) Serum = 21.2 0-40 complet or 017 ed plasma 11:20 cholest loly in VLDL andrés Serum = 106 30-200 complet or 017 mg/dL ed plasma 11:20 triglyc eride measure ment Serum = 189.8 0-130 complet or 017 mg/dL ed plasma 11:20 cholest loly in LDL measu Serum = 54.0 40-60 complet or 017 MG/DL ed plasma 11:20 cholest loly in HDL measu Total = 265 < 200 complet cholest 017 mg/dL ed loly 11:20 measure ment Serum or plasma free thyroxine (T4) andrés (06-11-2017 11:20) Serum = 0.98 0.76-1. complet or 017 ng/dL 46 ed plasma 11:20 free thyroxi ne (T4) andrés Comprehensive metabolic panel (06-11-2017 11:20) Protein = 7.4 6.4-8.2 complet total 017 gm/dL ed ser/saul 11:20 s ALT = 18 12-78 complet (SGPT) 017 U/L ed ser/saul 11:20 s Serum = 16 15-37 complet or 017 U/L ed plasma 11:20 asparta te aminotr ansfera Serum = 142 136-145 complet sodium 017 mmoL/L ed measure 11:20 ment Serum = 4.2 3.5-5.1 complet potassi 017 mmoL/L ed um 11:20 measure ment Serum = 85 74-106 complet or 017 mg/dL ed plasma 11:20 glucose measure ment (mas Serum = 3.1 1.3-3.2 complet globuli 017 gm/dL ed n 11:20 measure ment (mass/v olume) Estimat = 92 59- complet ed 017 ML/MIN ed glomeru 11:20 lar filtrat ion rate (GF Comment: REFERENCE RANGE: >60 ML/MIN/1.73 SQUARE METERS Comment: If this patient is -Egyptian, then multiply the Comment: result by 1.210. Serum = 0.7 0.55-1. complet or 017 mg/dL 02 ed plasma 11:20 creatin ine measure ment ( Carbon = 30 21.0-32 complet dioxide 017 mmoL/L .0 ed 11:20 measure ment Serum = 103 98-107 complet or 017 mmoL/L ed plasma 11:20 chlorid e measure ment (mo Serum = 9.4 8.5-10. complet or 017 mg/dL 1 ed plasma 11:20 calcium measure ment (mas Serum = 11 7-18 complet or 017 mg/dL ed plasma 11:20 urea nitroge n measure men Serum = 0.3 0.2-1.0 complet or 017 mg/dL ed plasma 11:20 total bilirub in measure m Serum = 78 46-116 complet or 017 U/L ed plasma 11:20 alkalin e phospha tase vernon Serum = 4.3 3.4-5.0 complet or 017 gm/dL ed plasma 11:20 albumin measure ment (mas Serum = 1.4 1.1-1.8 complet or 017 ed plasma 11:20 albumin /globul in mass ra Hemoglobin A1c in Blood (06-11-2017 11:20) Hemoglo 5.8 % 0.0% Normal complet bin A1c 017 - ed in 11:20 7.0% Blood TROPONIN I (07-03-2013 17:28) TROPONI 07-03- Less 0.00-0. complet N I 013 than 06 ed 17:28 0.02 ng/mL B-HCG Ur Ql (07-03-2013 16:02) B-HCG 07-03- NEGATIV NEG complet Ur Ql 013 E ed 16:02 COMPREHENSIVE METABOLIC PANEL (07-03-2013 15:20) Glucose 07-03- 90 74-106 complet 013 mg/dL ed Bld-mCn 15:20 c BUN 07-03-2 16 7-18 complet Bld-mCn 013 mg/dL ed c 15:20 Creat 07-03-2 0.9 0.6-1.0 complet SerPl-m 013 mg/dL ed Cnc 15:20 ESTIMAT 07-03-2 98 50-200 complet ED 013 ML/MIN ed CREATIN 15:20 INE CLEARAN CE GFR 07-03-2 70 59- complet (ESTIMA 013 ML/MIN ed BJ) 15:20 Sodium 07-03-2 143 136-145 complet SerPl-s 013 mmoL/L ed Cnc 15:20 Potassi 07-03-2 3.7 3.5-5.1 complet um 013 mmoL/L ed SerPl-s 15:20 Cnc Chlorid 07-03-2 105 98-107 complet e 013 mmoL/L ed SerPl-s 15:20 Cnc CO2 07-03-2 28 21.0-32 complet SerPl-s 013 mmoL/L .0 ed Cnc 15:20 Calcium 07-03-2 8.9 8.5-10. complet 013 mg/dL 1 ed SerPl-m 15:20 Cnc Prot 18-2 7.7 6.4-8.2 complet SerPl-m 013 gm/dL ed Cnc 15:20 Albumin 18-2 4.2 3.4-5.0 complet 013 gm/dL ed SerPl-m 15:20 Cnc Globuli 07-03-2 3.5 1.3-3.2 complet n 013 gm/dL ed [...] mg/dL 1 ed SerPl-m 16:30 Cnc Prot 09-22-2 7.6 6.4-8.2 complet SerPl-m 013 gm/dL ed Cnc 16:30 Albumin --2 4.2 3.4-5.0 complet 013 gm/dL ed SerPl-m [...] with AUTO DIFF (05-07-2013 16:30) WBC # 22-2 8.6 4.8-10. complet Bld 013 K/MM3 8 ed Auto 16:30 RBC # 22-2 4.32 4.2-5.4 complet Bld 013 M/mm3 ed [...] ed ULAR 16:30 HGB CONC RDW RBC 22-2 14.3 % 11.5-17 complet Auto 013 .5 ed 16:30 Platele 22-2 262 142-424 complet t Bld 013 K/mm3 ed Ql 16:30 Manual MEAN 05-07-2 8.6 fl 7.4-10. complet PLATELE 013 4 [...] E ed - 16:24 DIPSTIC K URINE -22-2 NEGATIV NEG complet BILIRUB 013 E ed IN - 16:24 DIPSTIC K URINE -22-2 NEGATIV NEG complet KETONE 013 E mg/dL ed 16:24 URINE -22-2 Greater 1.005-1 complet SPECIFI 013 than .030 ed C 16:24 or GRAVITY equal to 1.030 URINE -22-2 3+ NEG complet BLOOD 013 ed 16:24 URINE -22-2 6.0 UNK 5.0-8.5 complet PH 013 ed 16:24 URINE 09-22-2 NEGATIV NEG complet PROTEIN 013 E mg/dL [...] YELLOW complet COLOR 013 ed 16:15 URINE 03-08-2 CLEAR CLEAR complet APPEARA 013 ed NCE [...] LEUK 013 ed ESTERAS 16:15 E URINE 24-2 10-20 0 complet RBC 013 rbc/hpf ed 16:15 URINE 3-5 O complet WBC 013 wbc/hpf ed 16:15 URINE 10-20 0-5 complet SQUAMOU 013 #/hpf ed S CELLS 16:15 URINE 1+ O complet BACTERI 013 ed A 16:15 STREP SCREEN (RAPID) (11-20-2012 21:03) STREP NEGATIV complet SCREEN 013 E ed (RAPID) 21:03 Encounters Encounter Start End Date Code Location Performer Type Date Emergency DALE Larson (ER) 4 17:56 4 19:14 [facility] DALE Clark MD (ER) 3 15:45 3 18:22 [facility] Emergency DALE FELIZ MD (ER) 3 16:17 3 18:26 [facility] Emergency DALE Mena MD (ER) 3 18:34 3 19:21 [facility] Emergency DALE HARTMAN MD (ER) 3 16:41 3 17:29 [facility] Emergency DALE Ibarra MD (ER) 3 21:06 3 21:53 [facility]
--- OUTSIDE RECORDS SUMMARY | 2017-06-19 17:18 | External Medical Summary Rpt | CCD ---
Author Author Conduent Organization Conduent Address Unknown Phone Unavailable Purpose Continuity of Care Document - through 2016
--- OUTSIDE RECORDS SUMMARY | 2017-06-19 17:18 | External Medical Summary Rpt | CCD ---
Demographics Preferred Language Wolof Marital Status Unknown Sikhism Affiliation Unknown Race Unknown Ethnic Group Unknown Author Author , ARUN DIAS Address Unknown Phone Immunization Unable to retrieve immunization data due to connection failure with Immunization Registry. Please try again later.
--- OUTSIDE RECORDS SUMMARY | 2017-06-19 17:18 | External Medical Summary Rpt | CCD ---
Demographics Preferred Language Sinhala Marital Status Unknown Latter Day Affiliation Unknown Race Unknown Ethnic Group Unknown Author Author , ARUN DIAS Address Unknown Phone Immunization Unable to retrieve immunization data due to connection failure with Immunization Registry. Please try again later.
--- OUTSIDE RECORDS SUMMARY | 2017-06-19 17:18 | External Medical Summary Rpt | CCD ---
Author Author , ARUN Organization ARUN Address Unknown Phone [email or web address] Care Team Providers Care Electrotype Molder Name Role Phone Paul Mena MD, Unavailable Unavailable Paul FELIZ MD, Unavailable Unavailable MAMIE Clark MD, Unavailable Unavailable Marisela Ibarra MD, Unavailable Unavailable Yaneth HARTMAN MD, Unavailable Unavailable SUDHA HARTMAN MD Purpose Continuity of Care Document - 11-20-2012 through 2016 Problems Code Diagnosis DOS Provider Status 305.1 305.1 07-03-2013 [place] TOBACCO USE [facility] DISORDER [facility] 305.50 305.50 07-03-2013 [place] OPIOID [facility]BUSE[facility] C 401.9 401.9 07-03-2013 [place] HYPERTENSIO [facility] N NOS [facility] 780.2 780.2 07-03-2013 [place] SYNCOPE AND [facility] COLLAPSE Hospital 786.50 786.50 07-03-2013 [place] CHEST PAIN [facility] V14.0 V14.0 07-03-2013 [place] HX-PENICILL [facility] IN ALLERGY Hospital 592.0 592.0 05-07-2013 [place] CALCULUS OF [facility] KIDNEY [facility] 840.8 840.8 04-11-2013 [facility] SHOULDER/AR Hospital [facility] E849.0 E849.0 04-11-2013 [place] ACCIDENT IN [facility] E927.0 E927.0 04-11-2013 [place] OVEREXERTIO [facility] N FROM Hospital SUDDEN STRENUOUS MOVEMENT 846.9 846.9 03-08-2013 [facility] SACROILIAC [facility] NOS V13.01 V13.01 03-08-2013 [place] PERSONAL [facility] HISTORY OF Hospital URINARY CALCULI 462 462 ACUTE 11-20-2012 [place] PHARYNGITIS [facility] R07.89 OTHER CHEST PAIN R09.1 PLEURISY Allergies, [...] 41 20 ng RA 40 14 er DE 1 DE Ac ti 10 ve MG [...] D deficiency has been defined by the [place] of Comment: Medicine and an Endocrine Society practice guideline as a Comment: level of serum 25-OH vitamin D less than 20 ng/mL (1,2). Comment: The Endocrine Society went on to further define vitamin D Comment: insufficiency as a level between 21 and 29 ng/mL (2). Comment: 1. IOM ([place] of Medicine). 2010. Dietary reference Comment: intakes for calcium and D. [place]: The Comment: National [employer] Press. Comment: 2. Kassidy MF, Arun NC, Valencia REEYS, et al. Comment: Evaluation, treatment, and prevention of vitamin D Comment: deficiency: an Endocrine Society clinical practice Comment: guideline. JCEM. 2010; 96(7):1911-30. Comment: Performed at: - [facility] Comment: [id number], [place], [place] [id number] Comment: Disability Coordinator: Nikhil Moore PhD, Phone: [phone] CBC w auto diff (06-11-2017 11:20) Blood [...] blood 11:20 platele t mean volume vernon [place] % = 5.5 % 1.7-9.3 complet 017 [...] SQUARE METERS Comment: If this patient is -Brazilian, then multiply the Comment: result by 1.210. [...] DALE Larson (ER) 4 17:56 4 19:14 [facility] Emergency DALE Clark MD (ER) 3 15:45 3 18:22 [facility] Emergency DALE FELIZ MD (ER) 3 16:17 3 18:26 [facility] Emergency DALE Mena MD (ER) 3 18:34 3 19:21 [facility] Emergency DALE HARTMAN MD (ER) 3 16:41 3 17:29 [facility] Emergency DALE Ibarra MD (ER) 3 21:06 3 21:53 [facility]
--- OUTSIDE RECORDS SUMMARY | 2017-06-19 17:19 | External Medical Summary Rpt ---
Author Author JOSE ALFREDODANYA Alanis, ARUN [employer] Address Unknown Phone Unavailable Results 25-Hydroxyvitamin D [Mass/volume] in Serum or Plasma Observa Value Referen Units Interpr Notes Date tion ce etation Range 25-Hydrox 30.0 - ng/mL No Vitamin D Jun 11 yvitamin 100.0 informati 2017 D on in deficienc 11:20 AM [Mass/vol source y has ume] in data been Serum or defined Plasma by the [place] ofMedicin e and an Endocrine Society practice guideline as alevel of serum 25-OH vitamin D less than 20 ng/mL (1,2).The Endocrine Society went on to further define vitamin Dinsuffic iency as a level between 21 and 29 ng/mL (2).1. IOM ([place]stit[place] of Medicine) . 2010. Dietary reference intakes for calcium and D. [place]: TheNation al Academies Press.2. Kassidy MF, Arun NC, Sandra Cook REYES, et al.Evalua tion, treatment , and preventio n of vitamin Ddeficien cy: an Endocrine Society clinical practiceg uideline. JCEM. 2010; 96(7):191 1-30.Perf ormed at: - [facility] [address] [id number] Hotel Manager: Nikhil Moore PhD, Phone: [phone] Hemoglobin A1c in Blood Observa Value Referen Units Interpr Notes Date tion ce etation Range Hemoglo 5.8 0.0 - % Normal < 6% Jun 11 bin A1c 7.0 NON-EVELIA 2017 in BETIC 11:20 Blood LEVEL< AM 7% CONTROL LED DIABETI C LEVEL> 8% POORLY CONTROL LED DIABETI C LEVEL Comprehensive metabolic 2000 panel in Serum or Plasma Observa Value Referen Units Interpr Notes Date tion ce etation Range Albumin/G 1.1 - 1.8 No Normal No Jun 11 lobulin informati informati 2016 [Mass on in on in 11:20 AM ratio] in source source Serum or data data Plasma Albumin 3.4 - 5.0 gm/dL Normal No Jun 11 [Mass/vol informati 2016 ume] in on in 11:20 AM Serum or source Plasma data Alkaline 46 - 116 U/L Normal No Jun 11 phosphata informati 2016 se on in 11:20 AM [Enzymati source c data activity/ volume] in Serum or Plasma Bilirubin 0.2 - 1.0 mg/dL Normal No Jun 11 .total informati 2016 [Mass/vol on in 11:20 AM ume] in source Serum or data Plasma Urea 7 - 18 mg/dL Normal No Jun 11 nitrogen informati 2016 [Mass/vol on in 11:20 AM ume] in source Serum or data Plasma Calcium 8.5 - mg/dL Normal No Jun 11 [Mass/vol 10.1 informati 2016 ume] in on in 11:20 AM Serum or source Plasma data Chloride 98 - 107 mmoL/L Normal No Jun 11 [Moles/vo informati 2016 lume] in on in 11:20 AM Serum or source Plasma data Carbon 21.0 - mmoL/L Normal No Jun 11 dioxide, 32.0 informati 2016 total on in 11:20 AM [Moles/vo source lume] in data Serum or Plasma Creatinin 0.55 - mg/dL Normal No Jun 11 e 1.02 informati 2016 [Mass/vol on in 11:20 AM ume] in source Serum or data Plasma Estimated 59- ML/MIN No REFERENCE Jun 11 informati RANGE: 2017 glomerula on in >60 11:20 AM r source ML/MIN/1. filtratio data 73 SQUARE n rate METERSIf (GF this patient is -A merican, then multiply theresult by 1.210. Globulin 1.3 - 3.2 gm/dL Normal No Jun 11 [Mass/vol informati 2016 ume] in on in 11:20 AM Serum source data Glucose 74 - 106 mg/dL Normal No Jun 11 [Mass/vol informati 2016 ume] in on in 11:20 AM Serum or source Plasma data Potassium 3.5 - 5.1 mmoL/L Normal No Jun 11 informati 2016 [Moles/vo on in 11:20 AM lume] in source Serum or data Plasma Sodium 136 - 145 mmoL/L Normal No Jun 11 [Moles/vo informati 2016 lume] in on in 11:20 AM Serum or source Plasma data Aspartate 15 - 37 U/L Normal No Jun [id number] aminotran on in 11:20 AM sferase source [Enzymati data c activity/ volume] in Serum or Plasma Alanine 12 - 78 U/L Normal No Jun 11 aminotran 2016 sferase on in 11:20 AM [Enzymati source c data activity/ volume] in Serum or Plasma Protein 6.4 - 8.2 gm/dL Normal No Jun 11 [Mass/vol informati 2016 ume] in on in 11:20 AM Serum or source Plasma data Thyroxine (T4) free [Mass/volume] in Serum or Plasma Observa Value Referen Units Interpr Notes Date tion ce etation Range Thyroxine 0.76 - ng/dL Normal No Jun 11 (T4) 1.46 2016 free on in 11:20 AM [Mass/vol source ume] in data Serum or Plasma Lipid 1996 panel in Serum or Plasma Observa Value Referen Units Interpr Notes Date tion ce etation Range Cholester < 200 mg/dL High No Jun 11 ol 2016 [Moles/vo on in 11:20 AM lume] in source Unspecifi data ed specimen Cholester 40 - 60 MG/DL Normal No Jun 11 ol in HDL 2016 on in 11:20 AM [Mass/vol source ume] in data Serum or Plasma Cholester 0 - 130 mg/dL High No Jun 11 ol in LDL 2016 on in 11:20 AM [Mass/vol source ume] in data Serum or Plasma by luis on Triglycer 30 - 200 mg/dL Normal No Jun 11 jluis 2016 [Moles/vo on in 11:20 AM lume] in source Serum or data Plasma Cholester 0 - 40 No Normal No Jun 11 ol in informati 2016 VLDL on in on in 11:20 AM [Mass/vol source source ume] in data data Serum or Plasma Thyrotropin [Units/volume] in Serum or Plasma Observa Value Referen Units Interpr Notes Date tion ce etation Range Thyrotrop 0.358 - uIU/ml No No Jun 11 in 3.740 informati inform2016 [Units/vo on in on in 11:20 AM lume] in source source Serum or data data Plasma CBC W Auto Differential panel in Blood Observa Value Referen Units Interpr Notes Date tion ce etation Range Basophils 0 - 0.2 K/MM3 Normal No Jun 11 inform2016 [#/volume on in 11:20 AM ] in source Blood by data Automated count Basophils 0.1 - 2.0 % Normal No Jun 11 inform2016 leukocyte on in 11:20 AM s in source Blood by data Automated count Eosinophi 0.0 - 0.4 K/mm3 Normal No Jun 11 ls informati 2016 [#/volume on in 11:20 AM ] in source Blood by data Automated count Eosinophi 0.1 - % Normal No Jun 11 ls/100 12.0 informati 2016 leukocyte on in 11:20 AM s in source Blood by data Automated count Granulocy 1.8 - 7.8 K/mm3 Normal No Jun 11 macey informati 2016 [#/volume on in 11:20 AM ] in source Blood by data Automated count Granulocy 37.0 - % Normal No Jun 11/100 80.0 informati 2016 leukocyte on in 11:20 AM s in source Blood by data Automated count Hematocri 37.0 - % Normal No Jun 11 t [Volume 47.0 informati 2016 on in 11:20 AM Fraction] source of Blood data Hemoglobi 12.2 - g/dL Normal No Jun 11 n 16.2 informati 2016 [Mass/vol on in 11:20 AM ume] in source Blood data Lymphocyt 0.7 - 4.5 K/mm3 Normal No Jun 11 es informati 2016 [#/volume on in 11:20 AM ] in source Unspecifi data ed specimen by Automated count Lymphocyt 10 - 50.0 % Normal No Jun 11 es informati 2016 [#/volume on in 11:20 AM ] in source Unspecifi data ed specimen by Automated count Erythrocy 27 - 31.2 pg Normal No Jun 11 te mean inform2016 corpuscul on in 11:20 AM ar source hemoglobi data n [Entitic mass] Erythrocy 31.8 - g/dl Normal No Jun 11 te mean 35.4 informati 2016 corpuscul on in 11:20 AM ar source hemoglobi data n concentra tion [Mass/vol ume] by Automated count Erythrocy 82.2 - fl Normal No Jun 11 te mean 97.8 informati 2016 corpuscul on in 11:20 AM ar volume source [Entitic data volume] by Automated count Monocytes 0.1 - 1.0 K/mm3 Normal No Jun 11 inform2016 [#/volume on in 11:20 AM ] in source Blood by data Automated count Monocytes 1.7 - 9.3 % Normal No Jun 11 /100 2016 leukocyte on in 11:20 AM s in source Blood by data Automated count Platelet 7.4 - fl Normal No Jun 11 mean 10.4 2016 volume on in 11:20 AM [Entitic source volume] data in Blood by Automated count Platelets 142 - 424 K/mm3 Normal No Jun 11 inform2016 [#/volume on in 11:20 AM ] in source Blood data Erythrocy 4.2 - 5.4 M/mm3 Normal No Jun 11 macey inform2016 [#/volume on in 11:20 AM ] in source Amniotic data fluid Erythrocy 11.5 - % Normal No Jun 11 te 17.5 2016 distribut on in 11:20 AM ion width source [Entitic data volume] by Automated count Leukocyte 4.8 - K/MM3 Normal No Jun 11 s 10.8 inform2016 [#/volume on in 11:20 AM ] in source Blood data
--- OUTSIDE RECORDS SUMMARY | 2017-06-19 17:19 | External Medical Summary Rpt ---
Author Author JOSE ALFREDODANYA Alanis, ARUN [employer] Organization [employer] Address Unknown Phone Unavailable Results 25-Hydroxyvitamin D [Mass/volume] in Serum or Plasma Observa Value Referen Units Interpr Notes Date tion ce etation Range 25-Hydrox 30.0 - ng/mL No Vitamin D Jun 11 yvitamin 100.0 informati 2017 D on in deficienc 11:20 AM [Mass/vol source y has ume] in data been Serum or defined Plasma by the [place] ofMedicin e and an Endocrine Society practice [...] 2010; 96(7):191 1-30.Perf ormed at: - [facility] [address] [id number] Shop Worker: Nikhil Moore PhD, Phone: [phone] Hemoglobin A1c in Blood Observa Value [...]
[2017-06-19] MEDS ORDERED: ZOFRAN ODT4 MG PO (17:50)
--- NOTE | 2017-06-19 17:51 | [facility] Report ---
History of Present Issue Date/Time Seen by Provider 06/19/17 2914 Visit Reason Pt arrived:Walked Presenting Problem:PT C/O N/V TODAY Location if Accident: Onset of symptoms date/time:/ or onset unknown for:MEDICAL HX UNKNOWN Have you (or family members/close friends) recently traveled outside the [place]? N If Yes, where/when: Have you had exposure to infectious disease within the past month? TB? Other? 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 No Angina: No DE: No Hypertension? Yes Hyperlipidemia? No CHF? No DVT? No PE? No COPD? No Asthma? No Anemia? No GERD? No Gastric ulcers? No GI Bleed? No Hernia? No Thyroid Problems? No Hypothyroidism? No CVA? No Seizures? No Diabetes? No Insulin Dependent: No Insulin Pump: No Home FSBS? No Renal Insuffiency? No UTI? Yes Stones? Yes BPH? No GB Disease: Yes Nephritic Syndrome? No Asplenia? No Hepatitis? No Sickle Cell Disease? No Arthritis? No Migraines? Yes Cataracts? No Glaucoma? No MRSA? No HIV? No TB? No Anxiety? Yes Depression? No Cancer? No Site: N/A More? No Immunization HX DT/Tetanus 1-4 YRS Flu REFUSES Pneumonia REFUSES Surgical Hx Previous Surgery?Y Hysterect [place] Appendix ORAL EXTRACTION RIGHT CARPAL TUNNEL RT OVARY/LEFT OVARY TUBE LEFT CARPAL TUNNEL Family History Family HX Diabetes Yes CAD Yes Hypertension Yes Hyperlipidemia Yes Cancer Yes TB No Social History Smoking Hx Smoker: Former Smoker Tobacco: Yes Type Cigarettes Packs/day < 1 Pack Alcohol Alcohol: No Review of Systems All Other Systems Reviewed and Negative Gastrointestinal denies abdominal pain, denies constipation, denies diarrhea, nausea, vomiting Physical Exam Vital Signs Vital Signs Date Time Temp Pulse Resp B/P Pulse O2 O2 Flow FiO2 Ox Delivery Rate 06/19 1719 97.4 87 20 150/105 99 General Appearance normal appearance, WD/WN, no apparent distress Respiratory Status Yes: trachea midline, chest symmetrical, non tender chest. No: respiratory distress. Lung Sounds bilateral: normal breath sounds, lungs clear. Cardiovascular normal exam, regular rate/rhythm, no peripheral edema Gastrointestinal normal bowel sounds, normal exam, non tender, soft, no guarding , no rebound Neurologic alert, normal exam, oriented x 3 Medical Decision Making LABS/Meds/Orders Pt receiving controlled substance in ED? No Results/Orders Current Medication Orders Sig/Liza Start time Last Medication Dose Route Stop Time Status Admin Ondansetron HCl 4 MG ONCE ONE 06/19 173 DC 06/19 SL 06/19 1731 172 Ondansetron HCl 0 .STK-MED ONE 06/19 172 DC .ROUTE Departure Departure Time of Disposition 1746 Disposition DC Home or Self Care(routine) Clinical Impression Primary Impression: Vomiting Qualifiers: Vomiting type: unspecified Vomiting Intractability: unspecified Nausea presence: with nausea Qualified Code: R11.2 - Nausea with vomiting, unspecified Condition STABLE Referrals Fred LAWSON,King Leger (Family): 2 Days-Call Office If no improvement or worsening of symptoms Patient Instructions DI for Vomiting -- Adult, Nausea and Vomiting-Adult Additional Instructions try very small amounts of water or suck on ice chips. diarrhea. children and infants should use products formulated for children, like oral rehydration solutions. Discharge Counseling Counseled pt/family regarding diagnosis, medications/RX, home care, follow up needs Prescriptions Current Visit Scripts Ondansetron (Zofran 4MG Odt) 4 MG PO Q6HP PRN NAUSEA AND VOMITING #20 TAB at 1750
[2017-06-19 18:12] VITALS: BP 150/105
== END 2017-06-19 18:12 | disposition home or self-care (01) ==
LOC: UTC 17:12
DX: R11.2 Nausea with vomiting, unspecified (principal); Z88.0 Allergy status to penicillin; I10 Essential (primary) hypertension; F41.9 Anxiety disorder, unspecified; Z87.891 Personal history of nicotine dependence